=== PATIENT | female | born 1985 | race African-American/Black ===

== ENCOUNTER 2016-12-21 23:15 | Emergency (ER) | payer OTHER ==
[~2016-12-21] VITALS: Ht 165.1 cm; Wt 108.9 kg
[~2016-12-21 23:15] MED LIST: ACET-704 PO; ALBU8.5H6 INH; AMOX875T PO; CYCL10TA2 PO; FLUT250D IH; IBUP-1060 PO; LISI-338 PO; METF10002 PO; NAPR500T PO
[2016-12-21 23:25] VITALS: BP 147/87
--- NOTE | 2016-12-21 23:39 | PHYS DOC ---
Past Medical History Past Medical History: Asthma, Bronchitis, Diabetes-Type II, Hypertension, Other Additional Past Medical Histor: obese Past Surgical History: Cholecystectomy, Additional Past Surgical Histo: D&C Alcohol Use: None Drug Use: None Adult General Chief Complaint Chief Complaint: ABSCESS HPI HPI Patient is a 31 year old female presents emergency Department with complaint of pain, swelling and drainage to an area under her left armpit that began 2 days ago. Patient states that she does not have any history of recurrent skin infections. She states that she has not been on antibiotics within the past 30 days. Patient does shave her armpits. She denies fevers or chills. She denies myalgias or arthralgias. Review of Systems Review of Systems Constitutional: Denies fever or chills [] Eyes: Denies change in visual acuity, redness, or eye pain [] HENT: Denies nasal congestion or sore throat [] Respiratory: Denies cough or shortness of breath [] Cardiovascular: No additional information not addressed in HPI [] GI: Denies abdominal pain, nausea, vomiting, bloody stools or diarrhea [] : Denies dysuria or hematuria [] Musculoskeletal: Denies back pain or joint pain [] Integument: Denies rash or skin lesions [] Neurologic: Denies headache, focal weakness or sensory changes [] Endocrine: Denies polyuria or polydipsia [] Current Medications Current Medications Current Medications Medications (Trade) Dose Ordered Sig/Prem Start Time Stop Time Status Last Admin Dose Admin Lidocaine/Sodium Bicarbonate (Buffered Lidocaine 1%) 20 ml STK-MED ONCE 12/21/16 23:47 12/21/16 23:48 DC Allergies Allergies Allergies Coded Allergies Type Severity Reaction Last Updated Verified strawberry Allergy Intermediate SWELLS UP 08/25/15 Yes Uncoded Allergies Type Severity Reaction Last Updated Verified ONION Allergy Intermediate hives 08/25/15 Physical Exam Physical Exam Constitutional: Well developed, well nourished, no acute distress, non-toxic appearance. Patient is afebrile. HENT: Normocephalic, atraumatic, bilateral external ears normal, oropharynx moist, no oral exudates, nose normal. [] Eyes: PERRLA, EOMI, conjunctiva normal, no discharge. [] Neck: Normal range of motion, no tenderness, supple, no stridor. [] Cardiovascular:Heart rate regular rhythm, no murmur [] Lungs & Thorax: Bilateral breath sounds clear to auscultation [] Abdomen: Bowel sounds normal, soft, no tenderness, no masses, no pulsatile masses. [] Skin: Subcutaneous nodular lesion in patient's left axilla. When compressed, purulent drainage is immediately expressed. There is no overlying erythema or additional blockage/drainage tracts. Back: No tenderness, no CVA tenderness. [] Extremities: No tenderness, no cyanosis, no clubbing, ROM intact, no edema. [] Neurologic: Alert and oriented X 3, normal motor function, normal sensory function, no focal deficits noted. [] Psychologic: Affect normal, judgement normal, mood normal. [] Current Patient Data Vital Signs Vital Signs Date Time Temp Pulse Resp B/P Pulse Ox O2 Delivery O2 Flow Rate FiO2 12/21/16 23:25 98.1 96 18 100 Room Air 98.1 EKG EKG [] Radiology/Procedures Radiology/Procedures Procedure note: 1 cm abscess in the left axilla was anesthetized with buffered 1 % lidocaine. Wound was prepped with Betadine solution. Abscess was incised with an 11 blade scalpel. There was expression of purulent material . wound was probed for loculations. No loculations were found. Quarter-inch iodoform packing was placed in the wound. It was dressed and bandaged. Patient tolerated the procedure well. Procedure was performed by RENÉE Richter student, under my supervision. Course & Med Decision Making Course & Med Decision Making Pertinent Labs and Imaging studies reviewed. (See chart for details) [] Dragon Disclaimer Dragon Disclaimer This electronic medical record was generated, in whole or in part, using a voice recognition dictation system. Departure Departure Impression: Primary Impression: Abscess Disposition: HOME, SELF-CARE Condition: IMPROVED Referrals: NO PCP (PCP) Patient Instructions: Abscess, Care After, Abscess, [id number] Additional Instructions: 1. Take the medication as prescribed. 2. If packing has been placed in the abscess, take the packing out in 2 days while in the shower. 3. Keep the area covered with a bandage while it continues to drain. Do not let anybody touch with her hands. 4. Review the discharge instructions provided for self-care and reasons to return the emergency department. 5. Follow-up with primary care doctor next week for wound evaluation. Scripts Hydrocodone/Apap 5-325 (Foster 5-325 Tablet)1 Each Tablet1 Tab PO PRN Q6HRS PRN PAIN #15 TAB Prov:SARI DANG 12/21/16 Sulfamethoxazole/Trimethoprim (Bactrim Ds Tablet)1 Each Tablet1 Each PO BID #14 TAB Prov:SARI DANG 12/21/16 SARI DANG Dec 21, 2016 23:40
[2016-12-21] MEDS ORDERED: LIDOCAINE 1% / SOD BICARB 8.4% 20 ML VIAL. IJ ONE ×2 (23:47→23:55)
[2016-12-21] MEDS ORDERED: HYDR-971 PO (23:56)
[2016-12-21] MEDS ORDERED: SULF1TAB24 PO (23:56)
== END 2016-12-22 00:22 | disposition home or self-care (01) ==
LOC: ER 23:15
DX: L02.412 Cutaneous abscess of left axilla (principal); J45.909 Unspecified asthma, uncomplicated; E11.9 Type 2 diabetes mellitus without complications; I10 Essential (primary) hypertension; E66.9 Obesity, unspecified; Z68.39 Body mass index [BMI] 39.0-39.9, adult; Z91.018 Allergy to other foods
CPT/HCPCS: 10060; 99283-25

== ENCOUNTER 2017-02-06 23:49 | Emergency (ER) | payer OTHER ==
[~2017-02-06 23:49] MED LIST changes: +HYDR-971 PO; +SULF1TAB24 PO
[2017-02-06 23:51] VITALS: BP 132/73
[2017-02-07] MEDS ORDERED: HYDR-971 PO (00:48)
[2017-02-07] MEDS ORDERED: NAPR500T3 PO (00:48)
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
== END 2017-02-07 01:02 | disposition home or self-care (01) ==
LOC: ER 23:49
DX: H93.13 Tinnitus, bilateral (principal); J45.909 Unspecified asthma, uncomplicated; E11.9 Type 2 diabetes mellitus without complications; I10 Essential (primary) hypertension; E66.9 Obesity, unspecified; Z91.018 Allergy to other foods
CPT/HCPCS: 99283

== ENCOUNTER 2017-04-15 20:10 | Emergency (ER) | payer OTHER ==
[~2017-04-15] VITALS: Ht 165.1 cm; Wt 111.1 kg
[~2017-04-15 20:10] MED LIST changes: +METF-620 PO; -METF10002 PO; +NAPR500T3 PO
[2017-04-15] MEDS ORDERED: IV NORMAL SALINE 1000ML BAG 1,000 ML IV SCH (20:20)
[2017-04-15] MEDS ORDERED: methylPREDNISolone SOD SUCC PF 125 MG/2 ML VIAL. IV ONE (20:30)
[2017-04-15] MEDS ORDERED: IPRATRPIUM/ALBUTEROL 0.5/2.5MG 3 ML NEBU. NEB ONE (20:30)
[2017-04-15] MEDS ORDERED: 0.9 % SODIUM CHLORIDE 10 ML DISP.SYRIN. IV ONE (20:30)
--- NOTE | 2017-04-15 20:31 | PHYS DOC ---
Past Medical History Past Medical History: Asthma, Bronchitis, Diabetes-Type II, Hypertension, Other Additional Past Medical Histor: obese Past Surgical History: Cholecystectomy, Additional Past Surgical Histo: D&C Alcohol Use: None Drug Use: None Adult General Chief Complaint Chief Complaint: ASTHMA HPI HPI Patient is a 32 year old female with history of asthma who is supposed to be on albuterol inhalers at home but is presently out of medications. For last several days she's been suffering from increased wheezing increased shortness of breath with a nonproductive cough no fevers chills or URI symptoms. She's been trying to tough it out with no medications whatsoever because she cannot afford the medications given her income level she does not qualify for assistance to support her medication requirements. She denies any travel outside the country, denies any new antibiotics, denies any prior intubation, denies any recent steroid use, denies any recent oscillation ER visit last 3-6 months. Patient denies any exposure to smoke or trauma. Patient is very anxious when she arrived by EMS and given neb treatments in route and her saturation was difficult to within normal limits. She is no longer weak and wheezing there is no history of retractions reported by EMS or accessory muscle use. Differential diagnosis: Acute myocardial ischemia, heart failure, cardiac tamponade, bronchospasm, pulmonary embolism, pneumothorax, pulmonary infection i.e. bronchitis or pneumonia, upper airway obstruction, anaphylaxis, aspiration , psychogenic, pulmonary contusion, toxidrome, pneumomediastinum, noncardiogenic pulmonary edema or ARDS, COPD, tuberculosis, cystic fibrosis, asthma, high altitude pulmonary edema, valvular dysfunction, cardiac dysrhythmia , stroke, neuromuscular diseases like myasthenia gravis gravis, ALS, Guillain- Stewart syndrome, metabolic acidosis to include diabetic ketoacidosis, sepsis, and obstructive disorders like massive obesity Insert upon arrival. Patients will have chest x-ray done, EKG, enzymes, troponin , proBNP, CMP CBC and urinalysis. At this point patient will be given one neb treatment and Solu-Medrol as well as fluids antiemetics and an anoxia lytics if necessary. Review of Systems Review of Systems Constitutional: Denies fever or chills [] Eyes: Denies change in visual acuity, redness, or eye pain [] HENT: She has had nasal congestion and a nonproductive cough. Respiratory: As for very short of breath with a nonproductive cough. Cardiovascular: No additional information not addressed in HPI [] GI: Denies abdominal pain, nausea, vomiting, bloody stools or diarrhea [] : Denies dysuria or hematuria [] Musculoskeletal: Denies back pain or joint pain [] Integument: Denies rash or skin lesions [] Neurologic: Denies headache, focal weakness or sensory changes [] Endocrine: Denies polyuria or polydipsia [] Psychological: Patient's very anxious Current Medications Current Medications Current Medications Medications (Trade) Dose Ordered Sig/Prem Start Time Stop Time Status Last Admin Dose Admin Albuterol/ Ipratropium (Duoneb) 3 ml 1X ONCE 04/15/17 20:30 04/15/17 20:31 DC 04/15/17 20:37 3 ML Lorazepam (Ativan) 1 mg 1X ONCE 04/15/17 20:30 04/15/17 20:31 DC 04/15/17 20:51 1 MG Methylprednisolone Sodium Succinate (SOLU-Medrol 125MG VIAL) 125 mg 1X ONCE 04/15/17 20:30 04/15/17 20:31 DC 04/15/17 20:54 125 MG Sodium Chloride 1,000 ml @ 1,000 mls/hr Q1H 04/15/17 20:20 04/15/17 21:19 DC 04/15/17 20:55 1,000 MLS/HR Sodium Chloride (Normal Saline Flush) 10 ml 1X ONCE 04/15/17 20:30 04/15/17 20:31 DC 04/15/17 20:53 10 ML Allergies Allergies Allergies Coded Allergies Type Severity Reaction Last Updated Verified strawberry Allergy Intermediate SWELLS UP 08/25/15 Yes Uncoded Allergies Type Severity Reaction Last Updated Verified ONION Allergy Intermediate hives 08/25/15 Physical Exam Physical Exam Constitutional: Well developed, well nourished, patient obviously comfortable in marked distress with anxiety she is tearful and crying but easily consolable. Respiratory rate is between 20 and 25 her saturations are 99% on room air she is demonstrated no retractions, accessory muscle use or speaking in short sentences. HENT: Normocephalic, atraumatic, bilateral external ears normal, oropharynx moist, no oral exudates, nose normal. [] Eyes: PERRLA, EOMI, conjunctiva normal, no discharge. [] Neck: Normal range of motion, no tenderness, supple, no stridor. [] Cardiovascular:Heart rate regular rhythm, no murmur [] Lungs & Thorax: She does bilateral breath sounds are nearly clear patient has mild expiratory wheezing in the upper lung cervantes only. Abdomen: Bowel sounds normal, soft, no tenderness, no masses, no pulsatile masses. [] Skin: Warm, dry, no erythema, no rash. [] Extremities: No tenderness, no cyanosis, no clubbing, ROM intact, no edema. [] Neurologic: Alert and oriented X 3, normal motor function, normal sensory function, no focal deficits noted. [] Psychologic: Is very anxious. Current Patient Data Vital Signs Vital Signs Date Time Temp Pulse Resp B/P (MAP) Pulse Ox O2 Delivery O2 Flow Rate FiO2 04/15/17 20:40 99 Room Air 04/15/17 20:25 98.1 94 13 145/68 (93) 98.1 Lab Values Laboratory Tests Test 04/15/17 20:30 White Blood Count 10.8 x10^3/uL (4.0-11.0) Red Blood Count 4.31 x10^6/uL (3.50-5.40) Hemoglobin 13.2 g/dL (12.0-15.5) Hematocrit 39.1 % (36.0-47.0) Mean Corpuscular Volume 91 fL (79-100) Mean Corpuscular Hemoglobin 31 pg (25-35) Mean Corpuscular Hemoglobin Concent 34 g/dL (31-37) Red Cell Distribution Width 13.0 % (11.5-14.5) Platelet Count 209 x10^3/uL (140-400) Neutrophils (%) (Auto) 60 % (31-73) Lymphocytes (%) (Auto) 30 % (24-48) Monocytes (%) (Auto) 7 % (0-9) Eosinophils (%) (Auto) 3 % (0-3) Basophils (%) (Auto) 1 % (0-3) Neutrophils # (Auto) 6.4 x10^3uL (1.8-7.7) Lymphocytes # (Auto) 3.2 x10^3/uL (1.0-4.8) Monocytes # (Auto) 0.8 x10^3/uL (0.0-1.1) Eosinophils # (Auto) 0.3 x10^3/uL (0.0-0.7) Basophils # (Auto) 0.1 x10^3/uL (0.0-0.2) Sodium Level 141 mmol/L (136-145) Potassium Level 3.6 mmol/L (3.5-5.1) Chloride Level 105 mmol/L (98-107) Carbon Dioxide Level 25 mmol/L (21-32) Anion Gap 11 (6-14) Blood Urea Nitrogen 9 mg/dL (7-20) Creatinine 0.9 mg/dL (0.6-1.0) Estimated GFR (Cockcroft-Gault) 88.4 BUN/Creatinine Ratio 10 (6-20) Glucose Level 109 mg/dL (70-99) H Calcium Level 9.5 mg/dL (8.5-10.1) Total Bilirubin 0.3 mg/dL (0.2-1.0) Aspartate Amino Transferase (AST) 26 U/L (15-37) Alanine Aminotransferase (ALT) 32 U/L (14-59) Alkaline Phosphatase 67 U/L (46-116) Creatine Kinase 456 U/L (26-192) H Creatine Kinase MB (Mass) 0.9 ng/mL (0.0-3.6) Creatine Kinase MB Relative Index 0.2 % (0-4) Troponin I Quantitative < 0.017 ng/mL (0.000-0.055) [id number]-Ckj-S-Type Natriuretic Peptide 54 pg/mL (0-124) Total Protein 7.4 g/dL (6.4-8.2) Albumin 3.8 g/dL (3.4-5.0) Albumin/Globulin Ratio 1.1 (1.0-1.7) Laboratory Tests 04/15/17 20:30 Laboratory Tests 04/15/17 20:30 EKG EKG [] Radiology/Procedures Radiology/Procedures [] Course & Med Decision Making Course & Med Decision Making Pertinent Labs and Imaging studies reviewed. (See chart for details) Impression presents with suspected asthma exacerbation secondary to medication noncompliance because of lack of availability. Patient will be treated with albuterol IV steroids and supportive medications treat her anxiety. Arrival she was very anxious easily consoled with shortness and Ativan. Course the patient decrease evaluation and stay patient received another neb treatment and some Ativan here in the emergency department as well as fluids and appropriate medications to better sats are 100% on room air patient is resting quietly with normal respiratory of 16 lungs are clear bilaterally repeat evaluation. Patient was reevaluated approximately 925 and at 1005 again resting comfortably without issue. Troponin is negative CMP is unremarkable CBC is normal. Chest x-ray dated 04/15/2017 at 20 1:32 PM demonstrates normal lungs with no focal infiltrate no hyperinflation no cardiomegaly no soda Medicare no evidence of pneumothorax no pleural effusions. Impression asthma exacerbation and anxiety medication noncompliance. She will be provided albuterol, short course of steroids and Ativan to help with her anxiety. I will encourage her to follow-up with her primary care doctor to talk about these financial restraints or causing her to be noncompliant with medications. I'll provide her generic forms these medications in order to help facilitate coverage for her symptoms. We've given an albuterol with a spacer here in the emergency pertinent to prevent recurrence tonight. She is moderate risk given her medication noncompliance body habitus and need for recurrent treatments. Disposition discharged home with family to follow up with her primary care doctor [] Heidi Disclaimer Heidi Disclaimer This electronic medical record was generated, in whole or in part, using a voice recognition dictation system. Departure Departure Impression: Primary Impression: Asthma exacerbation Additional Impression: Anxiety Disposition: 01 HOME, SELF-CARE Condition: IMPROVED Referrals: NO PCP (PCP) Patient Instructions: Anxiety and Panic Attacks, Asthma Attacks, Prevention, Asthma Prevention-Brief, Asthma, Adult Additional Instructions: This follow-up U primary care doctor in the next 12-24 hours for refill. Medications reevaluation of the medical regiment you are on an assurance that you can actually get her medications in a timely manner to prevent subsequent attacks in the future. Scripts Albuterol Sulfate (PROVENTIL HFA INHALER) 6.7 Gm Hfa.aer.ad 1 PUFF IH PRN Q4HRS Y for FOR ASTHMA, #2 INHALER 0 Refills Please her private a spacer with his inhaler for this patient to use Prov: JEFFY CAPELLAN MD 04/15/17 Prednisone (PREDNISONE) 20 Mg Tablet 3 TAB PO DAILY for 5 Days, #15 TAB Prov: JEFFY CAPELLAN MD 04/15/17 Lorazepam (ATIVAN) 1 Mg Tablet 1 MG PO BID for 5 Days, #10 TAB Prov: JEFFY CAPELLAN MD 04/15/17 Problem Qualifiers JEFFY CAPELLAN MD Apr 15, 2017 20:31
[2017-04-15 20:37] LABS: BASO # 0.1 x10^3/uL (0.0-0.2); BASO % 1 % (0-3); EOS % 3 % (0-3); HEMATOCRIT 39.1 % (36.0-47.0); HEMOGLOBIN 13.2 g/dL (12.0-15.5); LYMPH # 3.2 x10^3/uL (1.0-4.8); LYMPH % 30 % (24-48); MEAN CORPUSCULAR HEMOGLOBIN 31 pg (25-35); MEAN CORPUSCULAR HGB CONC 34 g/dL (31-37); MEAN CORPUSCULAR VOLUME 91 fL (79-100); MONO % 7 % (0-9); NEUT % 60 % (31-73); PLATELET COUNT 209 x10^3/uL (140-400); RED BLOOD COUNT 4.31 x10^6/uL (3.50-5.40); WHITE BLOOD COUNT 10.8 x10^3/uL (4.0-11.0)
[2017-04-15 21:04] LABS: CALCIUM 9.5 mg/dL (8.5-10.1); CREATININE 0.9 mg/dL (0.6-1.0); GFR 88.4; POTASSIUM 3.6 mmol/L (3.5-5.1)
[2017-04-15 21:10] LABS: ALBUMIN 3.8 g/dL (3.4-5.0); ALBUMIN/GLOBULIN RATIO 1.1 (1.0-1.7); TOTAL BILIRUBIN 0.3 mg/dL (0.2-1.0); TOTAL PROTEIN 7.4 g/dL (6.4-8.2)
[2017-04-15 21:17] LABS: CKMB MASS 0.9 ng/mL (0.0-3.6)
[2017-04-15] MEDS ORDERED: PROVENTIL HFA6.7 GM IH (22:04)
[2017-04-15] MEDS ORDERED: LORA-434 PO (22:04)
[2017-04-15] MEDS ORDERED: PRED20TA PO (22:04)
[2017-04-15 22:30] VITALS: BP 139/80
--- NOTE | 2017-04-16 06:14 | EKG ---
[facility] [address] [place] [address] Test Date: 2017-04-15 Test Time: 20:17:14 Pat Name: NICO KAPOOR Department: Room: Gender: F Mys[employer] Database Developer: : [id number] Requested By: JEFFY CAPELLAN Order Number: [id number] Reading MD: Jolene Gardner Measurements Intervals [place] Rate: 92 P: 23 CA: 162 QRS: 23 QRSD: 86 T: -9 QT: 358 QTc: 448 Interpretive Statements SINUS RHYTHM NORMAL EKG RI6.01 Unconfirmed report No previous ECG available for comparison Electronically Signed On 04-19-2017 22:14:28 CDT by Jolene Gardner
--- NOTE | 2017-04-16 07:33 | RAD ---
Chest, 2 views, 04/15/2017: History: Cough, asthma Comparison is made to a study from 06/27/2015. The heart size and pulmonary vascularity are normal. No pulmonary infiltrates are seen. There is no evidence of pleural fluid. IMPRESSION: No acute cardiopulmonary abnormality is detected.
== END 2017-04-15 22:36 | disposition home or self-care (01) ==
LOC: ER 20:10
DX: J45.901 Unspecified asthma with (acute) exacerbation (principal); F41.9 Anxiety disorder, unspecified; I10 Essential (primary) hypertension; E66.9 Obesity, unspecified; E11.9 Type 2 diabetes mellitus without complications; Z68.41 Body mass index [BMI] 40.0-44.9, adult; Z90.49 Acquired absence of other specified parts of digestive tract; Z79.899 Other long term (current) drug therapy; Z91.018 Allergy to other foods; Z91.14 Patient's other noncompliance with medication regimen
CPT/HCPCS: 36415; 71020; 80053; 82553; 83880; 84484; 85027; 93005; 94640; 96361; 96374; 96375; 99285; J2060; J2930; J7030; J7620

== ENCOUNTER 2017-06-02 13:26 | Emergency (ER) | payer OTHER ==
[~2017-06-02] VITALS: Ht 165.1 cm; Wt 109.8 kg
[~2017-06-02 13:26] MED LIST changes: +LORA-434 PO; +PRED20TA PO; +PROVENTIL HFA6.7 GM IH
[2017-06-02] MEDS ORDERED: FAMOTIDINE 20 MG/2 ML VIAL IVP ONE (14:15)
[2017-06-02] MEDS ORDERED: ONDANSETRON PF 4 MG/2 ML VIAL. IV ONE (14:15)
--- NOTE | 2017-06-02 14:15 | ED.ADGEN ---
Past Medical History Past Medical History: Asthma, Bronchitis, Diabetes-Type II, Hypertension, Other Additional Past Medical Histor: obese Past Surgical History: Cholecystectomy, Additional Past Surgical Histo: D&C Alcohol Use: None Drug Use: None Adult General Chief Complaint Chief Complaint: CHEST PAIN HPI HPI Patient is a 32 year old -[place] female with history of asthma, hypertension and acid reflux disease who presents with intermittent chest pain with nausea and bilious vomiting 2 days. Symptoms are worse after eating. Patient states pain goes into chest into anterior throat. Denies back pain, shortness of breath, hematemesis or coffee-ground emesis. Denies upper abdominal pain. Patient's taken Rolaids and Tums without relief. No other acute symptoms or complaints. Previous cholecystectomy. Last menstrual period was 24 days ago. Review of Systems Review of Systems ROS as per HPI. All other ROS are negatiuve. Current Medications Current Medications Current Medications Medications (Trade) Dose Ordered Sig/Prem Start Time Stop Time Status Last Admin Dose Admin Famotidine (Pepcid) 20 mg 1X ONCE 06/02/17 14:15 06/02/17 14:16 DC 06/02/17 14:47 20 MG Lorazepam (Ativan) 1 mg 1X ONCE 06/02/17 14:15 06/02/17 14:16 DC 06/02/17 14:47 1 MG Ondansetron HCl (Zofran) 4 mg 1X ONCE 06/02/17 14:15 06/02/17 14:16 DC 06/02/17 14:47 4 MG Allergies Allergies Allergies Coded Allergies Type Severity Reaction Last Updated Verified strawberry Allergy Intermediate SWELLS UP 08/25/15 Yes Uncoded Allergies Type Severity Reaction Last Updated Verified ONION Allergy Intermediate hives 08/25/15 Physical Exam Physical Exam Constitutional:, Moderate distress secondary to pain. HENT: Normocephalic, atraumatic, bilateral external ears normal, oropharynx moist, no oral exudates, nose normal. Eyes: PERRL. Neck: Normal range of motion. Cardiovascular:Heart rate regular rhythm, no murmur. Lungs & Thorax: Bilateral breath sounds clear to auscultation. Abdomen: Bowel sounds normal, soft, epigastric pain, tenderness, obesity compromising exam. Skin: Warm, dry. Back: No tenderness. Extremities: No tenderness. Neurologic: Alert and oriented X 3, normal motor function, normal sensory function, no focal deficits noted. Psychologic: Affect normal, judgement normal, mood normal. Current Patient Data Vital Signs Vital Signs Date Time Temp Pulse Resp B/P (MAP) Pulse Ox O2 Delivery O2 Flow Rate FiO2 06/02/17 15:52 68 18 108/51 (70) 99 Room Air 06/02/17 13:47 98.2 98.2 Lab Values Laboratory Tests Test 06/02/17 14:04 06/02/17 14:44 POC Urine HCG, Qualitative Hcg negative (Negative) White Blood Count 8.9 x10^3/uL (4.0-11.0) Red Blood Count 4.24 x10^6/uL (3.50-5.40) Hemoglobin 12.9 g/dL (12.0-15.5) Hematocrit 38.4 % (36.0-47.0) Mean Corpuscular Volume 91 fL (79-100) Mean Corpuscular Hemoglobin 30 pg (25-35) Mean Corpuscular Hemoglobin Concent 34 g/dL (31-37) Red Cell Distribution Width 13.3 % (11.5-14.5) Platelet Count 181 x10^3/uL (140-400) Neutrophils (%) (Auto) 62 % (31-73) Lymphocytes (%) (Auto) 27 % (24-48) Monocytes (%) (Auto) 7 % (0-9) Eosinophils (%) (Auto) 4 % (0-3) H Basophils (%) (Auto) 1 % (0-3) Neutrophils # (Auto) 5.5 x10^3uL (1.8-7.7) Lymphocytes # (Auto) 2.4 x10^3/uL (1.0-4.8) Monocytes # (Auto) 0.7 x10^3/uL (0.0-1.1) Eosinophils # (Auto) 0.3 x10^3/uL (0.0-0.7) Basophils # (Auto) 0.0 x10^3/uL (0.0-0.2) D-Dimer (Beata) < 0.27 ug/mlFEU Sodium Level 141 mmol/L (136-145) Potassium Level 3.9 mmol/L (3.5-5.1) Chloride Level 106 mmol/L (98-107) Carbon Dioxide Level 28 mmol/L (21-32) Anion Gap 7 (6-14) Blood Urea Nitrogen 8 mg/dL (7-20) Creatinine 0.8 mg/dL (0.6-1.0) Estimated GFR (Cockcroft-Gault) 101.2 BUN/Creatinine Ratio 10 (6-20) Glucose Level 109 mg/dL (70-99) H Calcium Level 8.8 mg/dL (8.5-10.1) Total Bilirubin 0.4 mg/dL (0.2-1.0) Aspartate Amino Transferase (AST) 31 U/L (15-37) Alanine Aminotransferase (ALT) 34 U/L (14-59) Alkaline Phosphatase 61 U/L (46-116) Troponin I Quantitative < 0.017 ng/mL (0.000-0.055) Total Protein 7.4 g/dL (6.4-8.2) Albumin 3.6 g/dL (3.4-5.0) Albumin/Globulin Ratio 0.9 (1.0-1.7) L Lipase 143 U/L (73-393) Serum Test, Qualitative Negative (NEG) Laboratory Tests 06/02/17 14:44 Laboratory Tests 06/02/17 14:44 EKG EKG [EKG normal sinus rhythm, rate 78, no acute ST-T wave changes.] Radiology/Procedures Radiology/Procedures [] Course & Med Decision Making Course & Med Decision Making Pertinent Labs and Imaging studies reviewed. (See chart for details) [Patient's abdomen soft, nonsurgical and repeat evaluation. Symptoms fully resolved with treatment. Suspect acid reflux/spasm with secondary anxiety reaction. No hematemesis or dark tarry stools per patient report. Will discharge home with supportive care with PCP follow-up. Return precautions reviewed. Patient verbalized understanding agreement discharge instructions prior to ED departure. Dragon Disclaimer Dragon Disclaimer This electronic medical record was generated, in whole or in part, using a voice recognition dictation system. RICKY MORGAN DO Jun 02, 2017 14:15
[2017-06-02 15:16] LABS: BASO % 1 % (0-3); EOS % 4 % (0-3); HEMATOCRIT 38.4 % (36.0-47.0); HEMOGLOBIN 12.9 g/dL (12.0-15.5); LYMPH # 2.4 x10^3/uL (1.0-4.8); LYMPH % 27 % (24-48); MEAN CORPUSCULAR HEMOGLOBIN 30 pg (25-35); MEAN CORPUSCULAR HGB CONC 34 g/dL (31-37); MEAN CORPUSCULAR VOLUME 91 fL (79-100); MONO % 7 % (0-9); NEUT % 62 % (31-73); PLATELET COUNT 181 x10^3/uL (140-400); RED BLOOD COUNT 4.24 x10^6/uL (3.50-5.40); RED CELL DISTRIBUTION WIDTH 13.3 % (11.5-14.5); WHITE BLOOD COUNT 8.9 x10^3/uL (4.0-11.0)
[2017-06-02 15:33] LABS: CALCIUM 8.8 mg/dL (8.5-10.1); CREATININE 0.8 mg/dL (0.6-1.0); GFR 101.2; POTASSIUM 3.9 mmol/L (3.5-5.1)
[2017-06-02 15:38] LABS: ALBUMIN 3.6 g/dL (3.4-5.0); ALBUMIN/GLOBULIN RATIO 0.9 (1.0-1.7); NEG OBC SER NEG; POS OBC SER POS; TOTAL BILIRUBIN 0.4 mg/dL (0.2-1.0); TOTAL PROTEIN 7.4 g/dL (6.4-8.2)
[2017-06-02 16:26] VITALS: BP 126/61
--- NOTE | 2017-06-02 17:59 | EKG ---
[facility] [address] [place] [address] Test Date: 2017-06-02 Test Time: 13:57:01 Pat Name: NICO KAPOOR Department: Room: Gender: F Acupuncturist: : 1985 Requested By: RICKY MORGAN Order Number: [id number] Reading MD: Jj Eid Measurements Intervals [place] Rate: 78 P: 19 NC: 150 QRS: 30 QRSD: 80 T: -48 QT: 394 QTc: 453 Interpretive Statements SINUS RHYTHM NON-SPECIFIC ST/T CHANGES Electronically Signed On 06-07-2017 14:38:28 CDT by Jj Eid
== END 2017-06-02 17:02 | disposition home or self-care (01) ==
LOC: ER 13:26
DX: R11.2 Nausea with vomiting, unspecified (principal); R07.9 Chest pain, unspecified; E11.9 Type 2 diabetes mellitus without complications; E66.9 Obesity, unspecified; Z68.41 Body mass index [BMI] 40.0-44.9, adult; Z90.49 Acquired absence of other specified parts of digestive tract; Z91.018 Allergy to other foods; I10 Essential (primary) hypertension; J45.909 Unspecified asthma, uncomplicated; K21.9 Gastro-esophageal reflux disease without esophagitis
CPT/HCPCS: 36415; 80053; 81025; 83690; 84484; 84703; 85027; 85379; 93005; 96374; 96375; 99285; J2060; J2405; S0028

== ENCOUNTER 2017-07-15 14:28 | Emergency (ER) | payer OTHER ==
[~2017-07-15] VITALS: Ht 165.1 cm; Wt 109.8 kg
[2017-07-15 14:40] VITALS: BP 142/90
[2017-07-15] MEDS ORDERED: FAMOTIDINE 20 MG TABLET. PO ONE (15:00)
[2017-07-15] MEDS ORDERED: diphenhydrAMINE 50 MG/ML VIAL IM ONE (15:00)
[2017-07-15] MEDS ORDERED: DEXAMETHASONE SOD PHOS 20 MG/5 ML VIAL. IM ONE (15:00)
[2017-07-15] MEDS ORDERED: FAMO20TA5 PO (15:24)
[2017-07-15] MEDS ORDERED: EPIPEN 2-P0.3 MG/0.3 IJ (15:24)
[2017-07-15] MEDS ORDERED: CETI10TA22 PO (15:24)
[2017-07-15] MEDS ORDERED: PRED50TA PO (15:24)
--- NOTE | 2017-07-15 15:25 | PHYS DOC ---
Past Medical History Past Medical History: Asthma, Bronchitis, Diabetes-Type II, Hypertension, Other Additional Past Medical Histor: obese Past Surgical History: Cholecystectomy, Additional Past Surgical Histo: D&C Alcohol Use: None Drug Use: None Adult General Chief Complaint Chief Complaint: INSECT BITE [facility] HPI Patient is a 32 year old female with history of diabetes type 2, hypertension, bronchitis, who presents with a bee sting to the left upper extremity that happened 30 minutes prior to coming to the ED. Patient states she is allergic to bees. Patient denies any difficulty breathing or swallowing throat or tongue swelling. She states she used to have an EpiPen but has not had one for awhile Review of Systems Review of Systems Constitutional: Denies fever or chills [] Eyes: Denies change in visual acuity, redness, or eye pain [] HENT: Denies nasal congestion or sore throat [] Respiratory: Denies cough or shortness of breath [] Cardiovascular: No additional information not addressed in HPI [] GI: Denies abdominal pain, nausea, vomiting, bloody stools or diarrhea [] : Denies dysuria or hematuria [] Musculoskeletal: Denies back pain or joint pain [] Integument: Bee sting to the left upper extremity Neurologic: Denies headache, focal weakness or sensory changes [] Current Medications Current Medications Current Medications Medications (Trade) Dose Ordered Sig/Prem Start Time Stop Time Status Last Admin Dose Admin Dexamethasone Sodium Phosphate (Decadron) 10 mg 1X ONCE 07/15/17 15:00 07/15/17 15:01 DC 07/15/17 15:03 10 MG Diphenhydramine HCl (Benadryl) 50 mg 1X ONCE 07/15/17 15:00 07/15/17 15:01 DC 07/15/17 15:03 50 MG Famotidine (Pepcid) 20 mg 1X ONCE 07/15/17 15:00 07/15/17 15:01 DC 07/15/17 15:02 20 MG Allergies Allergies Allergies Coded Allergies Type Severity Reaction Last Updated Verified strawberry Allergy Intermediate SWELLS UP 08/25/15 Yes Uncoded Allergies Type Severity Reaction Last Updated Verified ONION Allergy Intermediate hives 08/25/15 Physical Exam Physical Exam Constitutional: Well developed, well nourished, no acute distress, non-toxic appearance. [] HENT: Normocephalic, atraumatic, bilateral external ears normal, oropharynx moist, no oral exudates, nose normal. [] Eyes: PERRLA, EOMI, conjunctiva normal, no discharge. [] Neck: Normal range of motion, no tenderness, supple, no stridor. [] Cardiovascular:Heart rate regular rhythm, no murmur [] Lungs & Thorax: Bilateral breath sounds clear to auscultation [] Abdomen: Bowel sounds normal, soft, no tenderness, no masses, no pulsatile masses. [] Skin: Left triceps with an area of erythema approximately 1 x 1 cm consistent with insect bite. Back: No tenderness, no CVA tenderness. [] Extremities: No tenderness, no cyanosis, no clubbing, ROM intact, no edema. [] Neurologic: Alert and oriented X 3, normal motor function, normal sensory function, no focal deficits noted. [] Psychologic: Affect normal, judgement normal, mood normal. [] Current Patient Data Vital Signs Vital Signs Date Time Temp Pulse Resp B/P (MAP) Pulse Ox O2 Delivery O2 Flow Rate FiO2 07/15/17 14:40 98.4 75 16 100 Room Air 98.4 EKG EKG [] Radiology/Procedures Radiology/Procedures [] Course & Med Decision Making Course & Med Decision Making Pertinent Labs and Imaging studies reviewed. (See chart for details) Patient has a bee sting to the left upper extremity. She does not have any anaphylactic reaction symptoms. She was given Decadron Benadryl and Pepcid in the ED. Discharged with prednisone,Benadryl and Pepcid. Given a prescription for EpiPen. Follow-up with PCP in 1-2 weeks. Provided proper return precautions and discharged in stable condition. Dragon Disclaimer Dragon Disclaimer This electronic medical record was generated, in whole or in part, using a voice recognition dictation system. Departure Departure Impression: Primary Impression: Bee sting Disposition: 01 HOME, SELF-CARE Condition: STABLE Referrals: NO PCP (PCP) follow up with your doctor next week Patient Instructions: Bee, Wasp, or Hornet Sting Additional Instructions: You were seen for a bee sting to the left upper extremity. Take the prescribed prednisone for 5 days, take Benadryl during the night of Zyrtec during the day, take Pepcid for the next 5 days. Follow-up with your doctor next week. Return to the emergency room if symptoms worsen. Scripts Cetirizine Hcl (ZYRTEC) 10 Mg Tablet 1 TAB PO DAILY, #14 TAB 0 Refills Prov: DARLENE TUCKER APRN 07/15/17 Famotidine (FAMOTIDINE) 20 Mg Tablet 20 MG PO DAILY, #5 TAB Prov: DARLENE TUCKER APRN 07/15/17 Prednisone (PREDNISONE) 50 Mg Tablet 1 TAB PO DAILY, #5 TAB Prov: DARLENE TUCKER APRN 07/15/17 Epinephrine (EPIPEN 2-JADON) 0.3 Mg/0.3 Ml Auto.injct 0.3 MG IJ 1X, #1 SYR Prov: DARLENE TUCKER APRN 07/15/17 Problem Qualifiers Primary Impression: Bee sting Encounter type: initial encounter Injury intent: accidental or unintentional Qualified Codes: T63.441A - Toxic effect of venom of bees, accidental (unintentional), initial encounter DARLENE TUCKER APRN Jul 15, 2017 15:25
== END 2017-07-15 15:30 | disposition home or self-care (01) ==
LOC: ER 14:28
DX: T63.441A Toxic effect of venom of bees, accidental (unintentional), initial encounter (principal); E11.9 Type 2 diabetes mellitus without complications; I10 Essential (primary) hypertension; J45.909 Unspecified asthma, uncomplicated; Z91.018 Allergy to other foods; E66.9 Obesity, unspecified; Z68.41 Body mass index [BMI] 40.0-44.9, adult; Y93.89 Activity, other specified; Y99.8 Other external cause status; Y92.89 Other specified places as the place of occurrence of the external cause
CPT/HCPCS: 96372; 99284; J1100; J1200

== ENCOUNTER 2017-07-25 21:34 | Emergency (ER) | payer OTHER ==
[~2017-07-25] VITALS: Ht 165.1 cm; Wt 104.3 kg
[~2017-07-25 21:34] MED LIST changes: +CETI10TA22 PO; +EPIPEN 2-P0.3 MG/0.3 IJ; +FAMO20TA5 PO; +PRED50TA PO
[2017-07-25 21:56] VITALS: BP 157/73
[2017-07-25] MEDS ORDERED: AMOX875T PO (22:05)
[2017-07-25] MEDS ORDERED: TRAM-48 PO (22:05)
--- NOTE | 2017-07-25 22:05 | PHYS DOC ---
Past Medical History Past Medical History: Asthma, Bronchitis, Diabetes-Type II, Hypertension, Other Additional Past Medical Histor: obese Past Surgical History: Cholecystectomy, Additional Past Surgical Histo: D&C Alcohol Use: None Drug Use: None Adult General Chief Complaint Chief Complaint: EARACHE/EAR PAIN [facility] Patient is a 32 year old female with history of diabetes, hypertension, who presents with moderate bilateral ear pain that began 3 days ago. Patient denies any fever. Review of Systems Review of Systems Constitutional: Denies fever or chills [] Eyes: Denies change in visual acuity, redness, or eye pain [] HENT: moderate bilateral ear pain Respiratory: Denies cough or shortness of breath [] Cardiovascular: No additional information not addressed in HPI [] GI: Denies abdominal pain, nausea, vomiting, bloody stools or diarrhea [] : Denies dysuria or hematuria [] Musculoskeletal: Denies back pain or joint pain [] Integument: Denies rash or skin lesions [] Neurologic: Denies headache, focal weakness or sensory changes [] Current Medications Current Medications Current Medications Medications (Trade) Dose Ordered Sig/Prem Start Time Stop Time Status Last Admin Dose Admin Acetaminophen/ Hydrocodone Bitart (Lortab 5/325) 1 tab 1X ONCE 07/25/17 22:00 07/25/17 22:01 UNV Allergies Allergies Allergies Coded Allergies Type Severity Reaction Last Updated Verified strawberry Allergy Intermediate SWELLS UP 08/25/15 Yes Uncoded Allergies Type Severity Reaction Last Updated Verified ONION Allergy Intermediate hives 08/25/15 Physical Exam Physical Exam Constitutional: Well developed, well nourished, no acute distress, non-toxic appearance. []Patient is tearful. HENT: Normocephalic, atraumatic, bilateral external ears normal, oropharynx moist, no oral exudates, nose normal. [] Bilateral TM are moderately injected. Eyes: PERRLA, EOMI, conjunctiva normal, no discharge. [] Neck: Normal range of motion, no tenderness, supple, no stridor. [] Cardiovascular:Heart rate regular rhythm, no murmur [] Lungs & Thorax: Bilateral breath sounds clear to auscultation [] Abdomen: Bowel sounds normal, soft, no tenderness, no masses, no pulsatile masses. [] Skin: Warm, dry, no erythema, no rash. [] Back: No tenderness, no CVA tenderness. [] Extremities: No tenderness, no cyanosis, no clubbing, ROM intact, no edema. [] Neurologic: Alert and oriented X 3, normal motor function, normal sensory function, no focal deficits noted. [] Psychologic: Affect normal, judgement normal, mood normal. [] Current Patient Data Vital Signs Vital Signs Date Time Temp Pulse Resp B/P (MAP) Pulse Ox O2 Delivery O2 Flow Rate FiO2 07/25/17 21:56 98.4 89 20 100 Room Air 98.4 EKG EKG [] Radiology/Procedures Radiology/Procedures [] Course & Med Decision Making Course & Med Decision Making Pertinent Labs and Imaging studies reviewed. (See chart for details) Patient has bilateral otitis media. Will be discharged with amoxicillin and Ultram. Follow-up with primary care doctor in 1-2 weeks. Dragon Disclaimer Dragon Disclaimer This electronic medical record was generated, in whole or in part, using a voice recognition dictation system. Departure Departure Impression: Primary Impression: Otitis media Disposition: 01 HOME, SELF-CARE Condition: STABLE Referrals: NO PCP (PCP) follow up with your doctor in 1-2 weeks Patient Instructions: Otitis Media, Adult Additional Instructions: You were seen for ear infection. Please complete your antibiotics. Follow-up with your doctor in 1-2 weeks. Scripts Tramadol Hcl (ULTRAM) 50 Mg Tablet 1 TAB PO Q6HRS, #30 TAB Prov: DARLENE TUCKER APRN 07/25/17 Amoxicillin (AMOXICILLIN) 875 Mg Tablet 1 TAB PO BID, #20 TAB Prov: DARLENE TUCKER APRN 07/25/17 Problem Qualifiers Primary Impression: Otitis media Otitis media type: other nonsuppurative Chronicity: acute Laterality: bilateral Recurrence: not specified as recurrent Qualified Codes: H65.193 - Other acute nonsuppurative otitis media, bilateral DARLENE TUCKER APRN Jul 25, 2017 22:05
[2017-07-25] MEDS ORDERED: HYDROcodone/APAP 5/325MG 1 TAB TABLET PO ONE (22:15)
== END 2017-07-25 22:15 | disposition home or self-care (01) ==
LOC: ER 21:34
DX: H66.93 Otitis media, unspecified, bilateral (principal); I10 Essential (primary) hypertension; J45.909 Unspecified asthma, uncomplicated; E11.9 Type 2 diabetes mellitus without complications; Z91.018 Allergy to other foods
CPT/HCPCS: 99283

== ENCOUNTER 2017-08-02 23:29 | Emergency (ER) | payer OTHER ==
[~2017-08-02 23:29] MED LIST changes: +TRAM-48 PO
[2017-08-02] MEDS ORDERED: AMOX1TAB11 PO (23:50)
--- NOTE | 2017-08-02 23:51 | PHYS DOC ---
Past Medical History Past Medical History: Asthma, Bronchitis, Diabetes-Type II, Hypertension, Other Additional Past Medical Histor: obese Past Surgical History: Cholecystectomy, Additional Past Surgical Histo: D&C Alcohol Use: None Drug Use: None Adult General Chief Complaint Chief Complaint: SORE THROAT HPI HPI Patient is a 32 year old male that presents to the emergency department the three-day history of sore throat with voice change. She reports no fever although she has had chills. She states she has one at home with similar symptoms. Review of Systems Review of Systems Constitutional: Chills without reported Eyes: Denies change in visual acuity, redness, or eye pain [] HENT: Sore throat, nasal congestion, ear pain Respiratory: Cough without shortness of breath Cardiovascular: Denies chest pain GI: Denies abdominal pain, nausea, vomiting, bloody stools or diarrhea [] : Denies dysuria or hematuria [] Musculoskeletal: Denies back pain or joint pain [] Integument: Denies rash or skin lesions [] Neurologic: Denies headache, focal weakness or sensory changes [] Endocrine: Denies polyuria or polydipsia [] Allergies Allergies Allergies Coded Allergies Type Severity Reaction Last Updated Verified onion Allergy Intermediate Hives 07/25/17 Yes strawberry Allergy Intermediate SWELLS UP 08/25/15 Yes Physical Exam Physical Exam Constitutional: Well developed, well nourished, no acute distress, non-toxic appearance. [] HENT: Normocephalic, atraumatic, bilateral external ears normal, right tympanic membrane erythematous with effusion, oropharynx moist and posterior pharynx erythematous, uvula midline, no oral exudates, nose normal. [] Eyes: PERRLA, EOMI, conjunctiva normal, no discharge. [] Neck: Normal range of motion, no tenderness, supple without lymphadenopathy, no stridor. [] Cardiovascular:Heart rate regular rhythm, no murmur [] Lungs & Thorax: Bilateral breath sounds clear to auscultation []] Skin: Warm, dry, no erythema, no rash. [] Back: No tenderness, no CVA tenderness. [] Neurologic: Alert and oriented X 3, normal motor function, normal sensory function, no focal deficits noted. [] EKG EKG [] Radiology/Procedures Radiology/Procedures [] Course & Med Decision Making Course & Med Decision Making Pertinent Labs and Imaging studies reviewed. (See chart for details) [] Dragon Disclaimer Dragon Disclaimer This electronic medical record was generated, in whole or in part, using a voice recognition dictation system. Departure Departure Impression: Primary Impression: Pharyngitis Additional Impression: Otitis media Disposition: 01 HOME, SELF-CARE Condition: STABLE Referrals: NO PCP (PCP) [facility] [place] Patient Instructions: Otitis Media, Adult, Viral Pharyngitis Additional Instructions: Magic mouthwash, 1 teaspoon gargle and spit every 2-4 hours as needed for throat pain. Tylenol alternating with Motrin [id number] as labeled and is indicated for symptom management. Increase fluid intake. Scripts Amoxicillin/Potassium Clav (AMOX TR-K CLV 875-125 MG TAB) 1 Each Tablet 1 TAB PO BID, #20 TAB Prov: MARIVEL SOARES APRN 08/02/17 Problem Qualifiers Primary Impression: Pharyngitis Pharyngitis/tonsillitis etiology: unspecified etiology Qualified Codes: J02.9 - Acute pharyngitis, unspecified Additional Impression: Otitis media Otitis media type: serous Chronicity: acute Laterality: right Recurrence : not specified as recurrent Qualified Codes: H65.01 - Acute serous otitis media, right ear MARIVEL SOARES APRN Aug 02, 2017 23:51
== END 2017-08-03 00:07 | disposition home or self-care (01) ==
LOC: ER 23:29
DX: J02.9 Acute pharyngitis, unspecified (principal); H65.01 Acute serous otitis media, right ear; J45.909 Unspecified asthma, uncomplicated; E11.9 Type 2 diabetes mellitus without complications; I10 Essential (primary) hypertension; E66.9 Obesity, unspecified; Z91.018 Allergy to other foods
CPT/HCPCS: 99283

== ENCOUNTER 2017-08-25 23:54 | Emergency (ER) | payer OTHER ==
[~2017-08-25] VITALS: Ht 165.1 cm; Wt 108.9 kg
[~2017-08-25 23:54] MED LIST changes: +AMOX1TAB11 PO; -NAPR500T3 PO; +NAPR500T4 PO
[2017-08-26 00:02] VITALS: BP 151/88
--- NOTE | 2017-08-26 00:07 | PHYS DOC ---
Past Medical History Past Medical History: Asthma, Bronchitis, Diabetes-Type II, Hypertension, Other Additional Past Medical Histor: obese Past Surgical History: Cholecystectomy, Additional Past Surgical Histo: D&C Alcohol Use: None Drug Use: None Adult General Chief Complaint Chief Complaint: LOWEREXTREMITY INJURY HPI HPI Patient is a 32 year old female with history of asthma hypertension and diabetes type 2 who presents today with right ankle and right knee pain that began today after she slipped and fell. Patient denies any loss of consciousness. Review of Systems Review of Systems Constitutional: Denies fever or chills [] Musculoskeletal: right ankle and right knee pain Integument: Denies rash or skin lesions [] Neurologic: Denies headache, focal weakness or sensory changes [] Allergies Allergies Allergies Coded Allergies Type Severity Reaction Last Updated Verified onion Allergy Intermediate Hives 07/25/17 Yes strawberry Allergy Intermediate SWELLS UP 08/25/15 Yes Physical Exam Physical Exam Constitutional: Well developed, well nourished, no acute distress, non-toxic appearance. [] Skin: Warm, dry, no erythema, no rash. [] Back: No tenderness, no CVA tenderness. [] Extremities: Right lower extremity with no obvious deformity. Tenderness on palpation of the right anterior knee. Tenderness diffusely to the right ankle. Patient unable to tolerate any range of motion to the right knee and right ankle. She is crying in pain. +2 right pedal pulse. Cap refill less than 2 seconds the right toes. Neurologic: Alert and oriented X 3, normal motor function, normal sensory function, no focal deficits noted. [] Psychologic: Affect normal, judgement normal, mood normal. [] Current Patient Data Vital Signs Vital Signs Date Time Temp Pulse Resp B/P (MAP) Pulse Ox O2 Delivery O2 Flow Rate FiO2 08/26/17 00:02 98.0 86 16 100 Room Air 98.0 EKG EKG [] Radiology/Procedures Radiology/Procedures [] Course & Med Decision Making Course & Med Decision Making Pertinent Labs and Imaging studies reviewed. (See chart for details) Patient is in the ED with right knee and right ankle pain after falling. Right knee and right ankle x-rays interpreted by Dr. Goode are negative for any acute findings. Patient was provided Ernst wrap. Ice elevation encouraged. She is to wrap her knee when she gets home because her pants are very tight. She is to follow-up with orthopedic doctor in one week. Discharged with Ultram for pain. Dragon Disclaimer Dragon Disclaimer This electronic medical record was generated, in whole or in part, using a voice recognition dictation system. Departure Departure Impression: Primary Impression: Fall from standing Additional Impressions: Right ankle sprain Contusion of right knee Disposition: HOME, SELF-CARE Condition: STABLE Referrals: NO PCP (PCP) ALEXIS DOBBS II, MD Follow-up in one week Patient Instructions: Ankle Sprain, Contusion, [id number] Additional Instructions: You were seen with right knee contusion and right ankle sprain. Wear the Ernst wrap provided as tolerated and needed. Ice and elevate the affected extremity. The prescribed medicine as needed for pain. Do not drive or operate machinery on the pain medicine. Follow-up with the provided orthopedic doctor in one week. Scripts Tramadol Hcl (ULTRAM) 50 Mg Tablet 1 TAB PO Q6HRS, #30 TAB Prov: DARLENE TUCKER APRN 08/26/17 Problem Qualifiers Primary Impression: Fall from standing Encounter type: initial encounter Qualified Codes: W19.XXXA - Unspecified fall, initial encounter Additional Impressions: Right ankle sprain Encounter type: initial encounter Involved ligament of ankle: unspecified ligament Qualified Codes: S93.401A - Sprain of unspecified ligament of right ankle, initial encounter Contusion of right knee Encounter type: initial encounter Qualified Codes: S80.01XA - Contusion of right knee, initial encounter DARLENE TUCKER APRN Aug 26, 2017 00:07
[2017-08-26] MEDS ORDERED: TRAM-48 PO (00:50)
--- NOTE | 2017-08-26 08:18 | RAD ---
Three-view right ankle study History: Right ankle pain. Findings: No acute fracture or dislocation or osteolytic process is seen. The mortise ankle joint is intact. IMPRESSION: No acute fracture.
--- NOTE | 2017-08-26 08:21 | RAD ---
Three-view right knee study History: Right knee pain. Findings: No acute fracture or dislocation or osteolytic process is seen. IMPRESSION: No acute fracture.
== END 2017-08-26 00:56 | disposition home or self-care (01) ==
LOC: ER 23:54
DX: S93.401A Sprain of unspecified ligament of right ankle, initial encounter (principal); S80.01XA Contusion of right knee, initial encounter; I10 Essential (primary) hypertension; E11.9 Type 2 diabetes mellitus without complications; J45.909 Unspecified asthma, uncomplicated; Z90.49 Acquired absence of other specified parts of digestive tract; Z91.018 Allergy to other foods; W01.0XXA Fall on same level from slipping, tripping and stumbling without subsequent striking against object, initial encounter; Y93.89 Activity, other specified; Y99.8 Other external cause status; Y92.89 Other specified places as the place of occurrence of the external cause
CPT/HCPCS: 73562; 73610; 99284

== ENCOUNTER 2017-09-29 22:33 | Emergency (ER) | payer OTHER, MEDICAID ==
[~2017-09-29] VITALS: Ht 165.1 cm; Wt 108.9 kg
[~2017-09-29 22:33] MED LIST changes: +NAPR-683 PO; -NAPR500T PO
[2017-09-29 22:37] VITALS: BP 168/109
[2017-09-29] MEDS ORDERED: PROAIR RESPICL90 MCG IH (23:14)
[2017-09-29] MEDS ORDERED: AMOX875T PO (23:14)
[2017-09-29] MEDS ORDERED: BENZ100C PO (23:14)
[2017-09-29] MEDS ORDERED: PRED50TA PO (23:14)
--- NOTE | 2017-09-29 23:14 | PHYS DOC ---
Past Medical History Past Medical History: Asthma, Bronchitis, Diabetes-Type I, Hypertension Additional Past Medical Histor: obese Past Surgical History: Cholecystectomy, , Other Additional Past Surgical Histo: D&C Alcohol Use: None Drug Use: None Adult General Chief Complaint Chief Complaint: COUGH HPI HPI Patient is a 32 year old female with history of asthma who presents today with nasal congestion and coughing and a sore throat for one week. Patient denies any fever. She states she has tried [id number] medications with no relief. She states she has tried her breathing treatments with no relief. Review of Systems Review of Systems Constitutional: Denies fever or chills [] Eyes: Denies change in visual acuity, redness, or eye pain [] HENT: Reports nasal congestion and sore throat [] Respiratory: Reports coughing denies shortness of breath [] Cardiovascular: No additional information not addressed in HPI [] GI: Denies abdominal pain, nausea, vomiting, bloody stools or diarrhea [] : Denies dysuria or hematuria [] Musculoskeletal: Denies back pain or joint pain [] Integument: Denies rash or skin lesions [] Neurologic: Denies headache, focal weakness or sensory changes [] All other systems were reviewed and found to be within normal limits, except as documented in this note. Current Medications Current Medications Current Medications Medications (Trade) Dose Ordered Sig/Prem Start Time Stop Time Status Last Admin Dose Admin Albuterol/ Ipratropium (Duoneb) 3 ml 1X ONCE 09/29/17 23:15 09/29/17 23:16 Amoxicillin (Amoxil) 500 mg 1X ONCE 09/29/17 23:15 09/29/17 23:16 Prednisone (Prednisone) 60 mg 1X ONCE 09/29/17 23:15 09/29/17 23:16 Allergies Allergies Allergies Coded Allergies Type Severity Reaction Last Updated Verified onion Allergy Intermediate Hives 07/25/17 Yes strawberry Allergy Intermediate SWELLS UP 08/25/15 Yes Physical Exam Physical Exam Constitutional: Well developed, well nourished, no acute distress, non-toxic appearance. [] HENT: Normocephalic, atraumatic, bilateral external ears normal, oropharynx moist, no oral exudates, nose normal. [] +3 tonsils with mild erythema and exudate on the right side. Midline uvula. +2 anterior cervical adenopathy. Eyes: PERRLA, EOMI, conjunctiva normal, no discharge. [] Neck: Normal range of motion, no tenderness, supple, no stridor. [] Cardiovascular:Heart rate regular rhythm, no murmur [] Lungs & Thorax: Bilateral breath sounds clear to auscultation [] Abdomen: Bowel sounds normal, soft, no tenderness, no masses, no pulsatile masses. [] Skin: Warm, dry, no erythema, no rash. [] Back: No tenderness, no CVA tenderness. [] Extremities: No tenderness, no cyanosis, no clubbing, ROM intact, no edema. [] Neurologic: Alert and oriented X 3, normal motor function, normal sensory function, no focal deficits noted. [] Psychologic: Affect normal, judgement normal, mood normal. [] Current Patient Data Vital Signs Vital Signs Date Time Temp Pulse Resp B/P (MAP) Pulse Ox O2 Delivery O2 Flow Rate FiO2 09/29/17 23:09 96 Room Air 09/29/17 22:37 98.7 95 20 98.7 EKG EKG [] Radiology/Procedures Radiology/Procedures [] Course & Med Decision Making Course & Med Decision Making Pertinent Labs and Imaging studies reviewed. (See chart for details) Patient is in the ED with symptoms consistent of acute bronchitis, slight asthma exacerbation, upper respiratory infection and tonsillitis. Discharged with amoxicillin for 10 days. Tylenol Motrin for pain or fever. Discharged with albuterol inhaler prednisone and Tessalon Perles. Saltwater gargles recommended. Emphasized importance of following up with her PCP next week. Dragon Disclaimer Dragon Disclaimer This electronic medical record was generated, in whole or in part, using a voice recognition dictation system. Departure Departure Impression: Primary Impression: Acute bronchitis Additional Impressions: Upper respiratory infection Acute tonsillitis Asthma exacerbation Disposition: 01 HOME, SELF-CARE Condition: STABLE Referrals: NO PCP (PCP) follow up with your doctor next week Patient Instructions: Acute Bronchitis, Asthma, Adult, Tonsillitis, Upper Respiratory Infection, Adult, [id number] Additional Instructions: You were seen for acute bronchitis, slight asthma exacerbation and upper respiratory infection and tonsillitis. We'll put you on antibiotics. Take them as prescribed ensure you complete them. Use saltwater gargles as needed for sore throat. Take Tylenol/Motrin for pain or fever. Scripts Amoxicillin (AMOXICILLIN) 875 Mg Tablet 1 TAB PO BID, #20 TAB Prov: DARLENE TUCKER SULEMA 09/29/17 Prednisone (PREDNISONE) 50 Mg Tablet 1 TAB PO DAILY, #4 TAB Prov: DARLENE TUCKER SULEMA 09/29/17 Benzonatate (TESSALON PERLE) 100 Mg Capsule 1 CAP PO TID, #30 CAP Prov: FLAQUITAFerdinandDARLENE SULEMA 09/29/17 Albuterol Sulfate (Proair Respiclick) 90 Mcg Aer.pow.ba 1 PUFF IH PRN Q6HRS Y for SHORTNESS OF BREATH, #1 INHALER Prov: DARLENE TUCKER SULEMA 09/29/17 Problem Qualifiers Primary Impression: Acute bronchitis Bronchitis organism: unspecified organism Qualified Codes: J20.9 - Acute bronchitis, unspecified Additional Impressions: Upper respiratory infection URI type: unspecified URI Qualified Codes: J06.9 - Acute upper respiratory infection, unspecified Acute tonsillitis Pharyngitis/tonsillitis etiology: unspecified etiology Qualified Codes: J03.90 - Acute tonsillitis, unspecified Asthma exacerbation Asthma severity: mild Asthma persistence: intermittent Qualified Codes: J45.21 - Mild intermittent asthma with (acute) exacerbation MARILYNDARLENE EDEN SULEMA Sep 29, 2017 23:14
[2017-09-29] MEDS ORDERED: IPRATRPIUM/ALBUTEROL 0.5/2.5MG 3 ML NEBU. NEB ONE (23:15)
[2017-09-29] MEDS ORDERED: predniSONE 20 MG TABLET PO ONE (23:15)
[2017-09-29] MEDS ORDERED: AMOXICILLIN 250 MG CAPSULE. PO ONE (23:15)
== END 2017-09-29 23:34 | disposition home or self-care (01) ==
LOC: ER 22:33
DX: J20.9 Acute bronchitis, unspecified (principal); J06.9 Acute upper respiratory infection, unspecified; J03.90 Acute tonsillitis, unspecified; J45.21 Mild intermittent asthma with (acute) exacerbation; E10.9 Type 1 diabetes mellitus without complications; I10 Essential (primary) hypertension; E66.9 Obesity, unspecified; Z68.39 Body mass index [BMI] 39.0-39.9, adult; Z90.49 Acquired absence of other specified parts of digestive tract; Z91.018 Allergy to other foods
CPT/HCPCS: 94640; 99283; J7512

== ENCOUNTER 2017-10-05 12:31 | Emergency (ER) | payer OTHER, MEDICAID ==
[~2017-10-05] VITALS: Ht 165.1 cm; Wt 108.9 kg
[~2017-10-05 12:31] MED LIST changes: +BENZ100C PO; +PROAIR RESPICL90 MCG IH
[2017-10-05 12:42] VITALS: BP 147/69
[2017-10-05] MEDS ORDERED: MECLIZINE HCL 12.5 MG TABLET. PO ONE (13:15)
--- NOTE | 2017-10-05 13:18 | PHYS DOC ---
Past Medical History Past Medical History: Asthma, Bronchitis, Diabetes-Type I, Hypertension Additional Past Medical Histor: obese Past Surgical History: Cholecystectomy, , Other Additional Past Surgical Histo: D&C Alcohol Use: None Drug Use: None Adult General Chief Complaint Chief Complaint: DIZZY/LIGHT HEADED HPI HPI Patient is a 32 year old female presents to the emergency department with a history of vomiting this morning at 0300 and then becoming dizzy. Patient states she has had two more episodes of dizziness since. Patient was seen here 6 days ago when and diagnosed with URI and did not skinny her prescriptions. Patient denies fever, chills, or diarrhea. Patient does states she has tenderness over the maxillary sinus areas. Review of Systems Review of Systems Constitutional: Denies fever or chills [] Eyes: Denies change in visual acuity, redness, or eye pain [] HENT: Denies nasal congestion or sore throat [] Respiratory: Denies cough or shortness of breath [] Cardiovascular: No additional information not addressed in HPI [] GI: Denies abdominal pain, nausea, bloody stools or diarrhea. C/o vomiting : Denies dysuria or hematuria [] Musculoskeletal: Denies back pain or joint pain [] Integument: Denies rash or skin lesions [] Neurologic: Denies headache, focal weakness or sensory changes, C/o dizziness Endocrine: Denies polyuria or polydipsia [] All other systems were reviewed and found to be within normal limits, except as documented in this note. Current Medications Current Medications Current Medications Medications (Trade) Dose Ordered Sig/Prem Start Time Stop Time Status Last Admin Dose Admin Meclizine HCl (Antivert) 25 mg 1X ONCE 10/05/17 13:15 10/05/17 13:16 DC 10/05/17 13:13 25 MG Potassium Chloride (Klor-Con) 40 meq 1X ONCE 10/05/17 14:30 10/05/17 14:31 DC 10/05/17 14:29 40 MEQ Allergies Allergies Allergies Coded Allergies Type Severity Reaction Last Updated Verified onion Allergy Intermediate Hives 07/25/17 Yes strawberry Allergy Intermediate SWELLS UP 08/25/15 Yes Physical Exam Physical Exam Constitutional: Well developed, well nourished, no acute distress, non-toxic appearance. [] HENT: Normocephalic, atraumatic, bilateral external ears normal, oropharynx moist, no oral exudates, nose normal. Bilateral TM normal, maxillary sinus tenderness noted, no frontal sinus tenderness noted. Eyes: PERRLA, EOMI, conjunctiva normal, no discharge. [] Neck: Normal range of motion, no tenderness, supple, no stridor. [] Cardiovascular:Heart rate regular rhythm, no murmur [] Lungs & Thorax: Bilateral breath sounds clear to auscultation [] Abdomen: Bowel sounds normal, soft, no tenderness, no masses, no pulsatile masses. [] Skin: Warm, dry, no erythema, no rash. [] Extremities: No tenderness, no cyanosis, no clubbing, ROM intact, no edema. [] Neurologic: Alert and oriented X 3, normal motor function, normal sensory function, no focal deficits noted. [] Psychologic: Affect normal, judgement normal, mood normal. [] Current Patient Data Vital Signs Vital Signs Date Time Temp Pulse Resp B/P (MAP) Pulse Ox O2 Delivery O2 Flow Rate FiO2 10/05/17 12:42 98.0 98 16 147/69 (95) 98 Room Air 98.0 Lab Values Laboratory Tests Test 10/05/17 13:26 White Blood Count 10.8 x10^3/uL (4.0-11.0) Red Blood Count 4.30 x10^6/uL (3.50-5.40) Hemoglobin 13.1 g/dL (12.0-15.5) Hematocrit 38.6 % (36.0-47.0) Mean Corpuscular Volume 90 fL (79-100) Mean Corpuscular Hemoglobin 30 pg (25-35) Mean Corpuscular Hemoglobin Concent 34 g/dL (31-37) Red Cell Distribution Width 13.0 % (11.5-14.5) Platelet Count 235 x10^3/uL (140-400) Neutrophils (%) (Auto) 60 % (31-73) Lymphocytes (%) (Auto) 28 % (24-48) Monocytes (%) (Auto) 8 % (0-9) Eosinophils (%) (Auto) 4 % (0-3) H Basophils (%) (Auto) 1 % (0-3) Neutrophils # (Auto) 6.4 x10^3uL (1.8-7.7) Lymphocytes # (Auto) 3.0 x10^3/uL (1.0-4.8) Monocytes # (Auto) 0.9 x10^3/uL (0.0-1.1) Eosinophils # (Auto) 0.4 x10^3/uL (0.0-0.7) Basophils # (Auto) 0.1 x10^3/uL (0.0-0.2) Sodium Level 141 mmol/L (136-145) Potassium Level 3.0 mmol/L (3.5-5.1) L Chloride Level 106 mmol/L (98-107) Carbon Dioxide Level 29 mmol/L (21-32) Anion Gap 6 (6-14) Blood Urea Nitrogen 10 mg/dL (7-20) Creatinine 0.8 mg/dL (0.6-1.0) Estimated GFR (Cockcroft-Gault) 101.2 BUN/Creatinine Ratio 13 (6-20) Glucose Level 123 mg/dL (70-99) H Calcium Level 9.3 mg/dL (8.5-10.1) Total Bilirubin 0.4 mg/dL (0.2-1.0) Aspartate Amino Transferase (AST) 32 U/L (15-37) Alanine Aminotransferase (ALT) 47 U/L (14-59) Alkaline Phosphatase 67 U/L (46-116) Total Protein 7.4 g/dL (6.4-8.2) Albumin 3.6 g/dL (3.4-5.0) Albumin/Globulin Ratio 0.9 (1.0-1.7) L Laboratory Tests 10/05/17 13:26 Laboratory Tests 10/05/17 13:26 EKG EKG EKG completed at 1416 heart rate 66 sinus rhythm noted no STEMI per [] Radiology/Procedures Radiology/Procedures [facility] [address] [place] [address] IMAGING REPORT Signed PATIENT: NICO KAPOOR ACCOUNT: [id number] : 1985 LOCATION: ER AGE: 32 SEX: F EXAM STATUS: REG ER ORD. PHYSICIAN: EDSON RABGAO APRN REASON: dizziness PROCEDURE: CT HEAD WO CONTRAST CT HEAD WITHOUT [id number]/24/2017 3:12 PM Indication: dizziness Comparison: None available Procedure: Multidetector CT imaging of the head was performed without the administration of contrast. Findings: Artifact from the patient's hair clips and a left hearing somewhat limited exam. No evidence of acute intracranial hemorrhage is identified. No evidence of territorial infarct is seen. Note that CT is limited for evaluation of acute ischemia. MRI is more sensitive evaluation as clinically indicated. No mass effect or midline shift is identified . The ventricles and basilar cisterns have an appropriate appearance. No abnormal extra-axial fluid collections are seen. No acute osseous changes are identified. Impression: No evidence of acute intracranial abnormality PQRS Compliance Statement: One or more of the following individualized dose reduction techniques were utilized for this examination: 1. Automated exposure control 2. Adjustment of the mA and/or kV according to patient size 3. Use of iterative reconstruction technique DICTATED and SIGNED BY: PAPO QUIROGA MD DATE: 10/05/17 [id number] CC: EDSON RABAGO APRN; NO PCP; NON,STAFF ~ [] Course & Med Decision Making Course & Med Decision Making Pertinent Labs and Imaging studies reviewed. (See chart for details) CBC normal, CMP with potassium of 3.0. She was provided with a potassium supplement here in the emergency department. EKG completed was normal as well. No STEMI per Dr. Higgins. Patient was provided with meclizine here in the emergency department which she states helped with her dizziness. She'll be discharged home with meclizine and Zofran for nausea and vomiting. Patient was provided with signs and symptoms to return back to the emergency department. All questions and concerns been answered at the patients bedside. I've spoken with the patient and/or caregivers. I've explained the patient's condition, diagnosis and treatment plan based on information available to me at this time. I've answered the patient's and/or caregivers questions and addressed any concerns. The patient and/or caregivers have a good understanding the patient's diagnosis, condition and treatment plan as can be expected at this point. Vital signs have been stabilized. The patient's condition is stable for discharge from the emergency department. The patient will pursue further outpatient evaluation with her primary care provider or other designated consulting physician as outlined in the discharge instructions. Patient and/or caregivers are agreeable to this plan of care and follow-up instructions have been explained in detail. The patient and/or caregivers have received these instructions in written format and expressed understanding of these discharge instructions. The patient and her caregivers are aware that if any significant change in condition or worsening of symptoms should prompt him to immediately return to this of the closest emergency department. If an emergent department is not readily available I would encourage him to call 911. [] Dragon Disclaimer Dragon Disclaimer This electronic medical record was generated, in whole or in part, using a voice recognition dictation system. Departure Departure Impression: Primary Impression: Vertigo Disposition: HOME, SELF-CARE Condition: STABLE Referrals: NO PCP (PCP) Patient Instructions: Vertigo, [id number] Additional Instructions: Activity as tolerated Medication as prescribed Meclizine may cause drowsiness do not take if you need to be alert and oriented Followup with your primary care provider in 3-5 days for a repeat Potassium level Return to emergency department as needed for signs and symptoms that become worse. Scripts Ondansetron (ZOFRAN ODT) 4 Mg Tab.rapdis 1 TAB SL Q8HRS, #10 TAB Prov: EDSON RABAGO APRN 10/05/17 Meclizine Hcl (MECLIZINE HCL) 25 Mg Tablet 1 TAB PO PRN TID Y for DIZZINESS, #30 TAB Prov: EDSON RABAGO APRN 10/05/17 EDSON RABAGO APRN Oct 05, 2017 13:18
[2017-10-05 13:38] LABS: BASO # 0.1 x10^3/uL (0.0-0.2); BASO % 1 % (0-3); EOS % 4 % (0-3); HEMATOCRIT 38.6 % (36.0-47.0); HEMOGLOBIN 13.1 g/dL (12.0-15.5); LYMPH % 28 % (24-48); MEAN CORPUSCULAR HEMOGLOBIN 30 pg (25-35); MEAN CORPUSCULAR HGB CONC 34 g/dL (31-37); MEAN CORPUSCULAR VOLUME 90 fL (79-100); MONO % 8 % (0-9); NEUT % 60 % (31-73); PLATELET COUNT 235 x10^3/uL (140-400); WHITE BLOOD COUNT 10.8 x10^3/uL (4.0-11.0)
--- NOTE | 2017-10-05 13:46 | RAD ---
CT HEAD WITHOUT [id number]/24/2017 3:12 PM Indication: dizziness Comparison: None available Procedure: Multidetector CT imaging of the head was performed without the administration of contrast. Findings: Artifact from the patient's hair clips and a left hearing somewhat limited exam. No evidence of acute intracranial hemorrhage is identified. No evidence of territorial infarct is seen. Note that CT is limited for evaluation of acute ischemia. MRI is more sensitive evaluation as clinically indicated. No mass effect or midline shift is identified . The ventricles and basilar cisterns have an appropriate appearance. No abnormal extra-axial fluid collections are seen. No acute osseous changes are identified. Impression: No evidence of acute intracranial abnormality PQRS Compliance Statement: One or more of the following individualized dose reduction techniques were utilized for this examination: 1. Automated exposure control 2. Adjustment of the mA and/or kV according to patient size 3. Use of iterative reconstruction technique
[2017-10-05 14:03] LABS: CALCIUM 9.3 mg/dL (8.5-10.1); CREATININE 0.8 mg/dL (0.6-1.0); GFR 101.2
[2017-10-05 14:11] LABS: ALBUMIN 3.6 g/dL (3.4-5.0); ALBUMIN/GLOBULIN RATIO 0.9 (1.0-1.7); TOTAL BILIRUBIN 0.4 mg/dL (0.2-1.0); TOTAL PROTEIN 7.4 g/dL (6.4-8.2)
--- NOTE | 2017-10-05 14:29 | EKG ---
[facility] [address] [place] [address] Test Date: 2017-10-05 Test Time: 14:16:31 Pat Name: NICO KAPOOR Department: Room: Gender: F Supervisory Clerk: : 1985 Requested By: EDSON RABAGO Order Number: [id number] Reading MD: Greg Rees Measurements Intervals [place] Rate: 66 P: 22 SC: 162 QRS: 26 QRSD: 88 T: 7 QT: 400 QTc: 421 Interpretive Statements SINUS RHYTHM Electronically Signed On 10-15-2017 14:12:25 [employer]ULTURAL LENDER by Greg Rees
[2017-10-05] MEDS ORDERED: POTASSIUM CHLORIDE 20 MEQ TABLET.ER. PO ONE (14:30)
[2017-10-05] MEDS ORDERED: ONDA4TAB10 SL (14:55)
[2017-10-05] MEDS ORDERED: MECL25TA3 PO (14:55)
== END 2017-10-05 15:09 | disposition home or self-care (01) ==
LOC: ER 12:31
DX: R42 Dizziness and giddiness (principal); R11.10 Vomiting, unspecified; J45.909 Unspecified asthma, uncomplicated; I10 Essential (primary) hypertension; E10.9 Type 1 diabetes mellitus without complications; E66.9 Obesity, unspecified; Z68.39 Body mass index [BMI] 39.0-39.9, adult; Z91.018 Allergy to other foods; Z91.048 Other nonmedicinal substance allergy status
CPT/HCPCS: 36415; 70450; 80053; 85025; 93005; 99285; J8597

== ENCOUNTER 2017-12-18 02:16 | Emergency (ER) | payer OTHER, MEDICAID ==
[2017-12-18 03:32] LABS: INFLUENZA A PATIENT NEGATIVE (NEGATIVE); INFLUENZA B PATIENT NEGATIVE (NEGATIVE); OBC FLU VALID
[2017-12-18] MEDS: ACETAMINOPHEN 500 MG TABLET PO ×2 (04:26)
[2017-12-18] MEDS: IBUPROFEN 600 MG TABLET. PO ×2 (04:27)
[2017-12-18 12:35] LABS: NEGATIVE OBC STREP NEG; POSITIVE OBC STREP POS
== END 2017-12-18 04:29 | disposition home or self-care (01) ==
LOC: ER 02:16
DX: J02.0 Streptococcal pharyngitis (principal); J45.909 Unspecified asthma, uncomplicated; E10.9 Type 1 diabetes mellitus without complications; E66.9 Obesity, unspecified; I10 Essential (primary) hypertension; Z79.4 Long term (current) use of insulin; Z68.39 Body mass index [BMI] 39.0-39.9, adult; Z91.018 Allergy to other foods
CPT/HCPCS: 87804; 87804-59; 87880; 99284

== ENCOUNTER 2017-12-26 16:00 | Emergency (ER) | payer OTHER, MEDICAID | END 2017-12-26 18:21 | disposition home or self-care (01) | LOC: ER 16:00 | DX: J20.9 Acute bronchitis, unspecified (principal); J45.909 Unspecified asthma, uncomplicated; E10.9 Type 1 diabetes mellitus without complications; I10 Essential (primary) hypertension; E66.9 Obesity, unspecified; Z68.41 Body mass index [BMI] 40.0-44.9, adult; Z90.49 Acquired absence of other specified parts of digestive tract; Z91.018 Allergy to other foods | CPT/HCPCS: 71046; 99284-25 ==

== ENCOUNTER 2018-04-07 13:56 | Emergency (ER) | payer OTHER, MEDICAID ==
[2018-04-07] MEDS: DEXAMETHASONE SOD PHOS 4 MG/ML VIAL PO (14:48)
[2018-04-07] MEDS: DEXAMETHASONE SOD PHOS 4 MG/ML VIAL IV (14:48)
[2018-04-07] MEDS: HYDROcodone/APAP 5/325MG 1 TAB TABLET PO (14:50)
[2018-04-07] MEDS ORDERED: DEXAMETHASONE 4 MG TABLET PO (15:00)
[2018-04-08 06:15] LABS: NEGATIVE OBC STREP NEG; POSITIVE OBC STREP POS
== END 2018-04-07 15:00 | disposition home or self-care (01) ==
LOC: ER 13:56
DX: J03.90 Acute tonsillitis, unspecified (principal); I10 Essential (primary) hypertension; E10.9 Type 1 diabetes mellitus without complications; J45.909 Unspecified asthma, uncomplicated; Z91.018 Allergy to other foods
CPT/HCPCS: 87070; 87880; 96374; 96375; 99283; 99284-25; J1100

== ENCOUNTER 2018-05-26 18:28 | Emergency (ER) | payer OTHER, MEDICAID | END 2018-05-26 21:19 | disposition home or self-care (01) | LOC: ER 21:19 | DX: S20.461A Insect bite (nonvenomous) of right back wall of thorax, initial encounter (principal); J45.909 Unspecified asthma, uncomplicated; E11.9 Type 2 diabetes mellitus without complications; I10 Essential (primary) hypertension; Z91.018 Allergy to other foods; W57.XXXA Bitten or stung by nonvenomous insect and other nonvenomous arthropods, initial encounter; Y93.89 Activity, other specified; Y99.8 Other external cause status; Y92.89 Other specified places as the place of occurrence of the external cause | CPT/HCPCS: 99283 ==

== ENCOUNTER 2018-06-27 12:28 | Emergency (ER) | payer OTHER, MEDICAID ==
[~2018-06-27] VITALS: Ht 165.1 cm; Wt 108.9 kg
[~2018-06-27 12:28] MED LIST changes: +AMOX500C PO; +MECL25TA3 PO; -METF-620 PO; +METF10003 PO; +NAPR-514 PO; -NAPR500T4 PO; +ONDA4TAB10 SL; +PROAIR HFA8.5 GM INH; +TRIA80OI TP
--- NOTE | 2018-06-27 12:51 | PHYS DOC ---
Past Medical History Past Medical History: Asthma, Bronchitis, Diabetes-Type I, Hypertension Additional Past Medical Histor: OBESITY Past Surgical History: Cholecystectomy, , Other Additional Past Surgical Histo: D&C Alcohol Use: None Drug Use: None Adult General Chief Complaint Chief Complaint: ABDOMINAL PAIN HPI HPI Patient is a 33 year old female with history of hypertension, diabetes type 2, who presents today complaining of food poisoning. Patient states she had [employer] a couple minutes ago and developed immediate diarrhea, abdominal pain 10 out of 10 described as sharp and constant, nausea and vomiting. Denies any hematemesis or melena, Review of Systems Review of Systems Constitutional: Denies fever or chills [] Eyes: Denies change in visual acuity, redness, or eye pain [] HENT: Denies nasal congestion or sore throat [] Respiratory: Denies cough or shortness of breath [] Cardiovascular: No additional information not addressed in HPI [] GI: Reports abdominal pain, nausea vomiting and diarrhea, : Denies dysuria or hematuria [] Musculoskeletal: Denies back pain or joint pain [] Integument: Denies rash or skin lesions [] Neurologic: Denies headache, focal weakness or sensory changes [] All other systems were reviewed and found to be within normal limits, except as documented in this note. Current Medications Current Medications Current Medications Medications (Trade) Dose Ordered Sig/Prem Start Time Stop Time Status Last Admin Dose Admin Dicyclomine HCl (Bentyl) 20 mg 1X ONCE 06/27/18 13:00 8 13:01 DC 06/27/18 13:31 20 MG Fentanyl Citrate (Fentanyl 2ml Vial) 50 mcg 1X ONCE 06/27/18 13:00 06/27/18 13:01 DC 06/27/18 13:29 50 MCG Ondansetron HCl (Zofran) 4 mg 1X ONCE 06/27/18 13:00 06/27/18 13:01 DC 06/27/18 13:30 4 MG Pantoprazole Sodium (PROTONIX VIAL for IV PUSH) 40 mg 1X ONCE 06/27/18 13:00 06/27/18 13:01 DC 06/27/18 13:30 40 MG Sodium Chloride 1,000 ml @ 1,000 mls/hr 1X ONCE 06/27/18 13:00 06/27/18 13:59 DC 06/27/18 13:32 1,000 MLS/HR Allergies Allergies Allergies Coded Allergies Type Severity Reaction Last Updated Verified onion Allergy Intermediate Hives 07/25/17 Yes strawberry Allergy Intermediate SWELLS UP 08/25/15 Yes Physical Exam Physical Exam Constitutional: Well developed, well nourished, no acute distress, non-toxic appearance. [] HENT: Normocephalic, atraumatic, bilateral external ears normal, oropharynx moist, no oral exudates, nose normal. [] Eyes: PERRLA, EOMI, conjunctiva normal, no discharge. [] Neck: Normal range of motion, no tenderness, supple, no stridor. [] Cardiovascular:Heart rate regular rhythm, no murmur [] Lungs & Thorax: Bilateral breath sounds clear to auscultation [] Abdomen: Rounded abdomen. Bowel sounds normal, soft, no tenderness, no masses, no pulsatile masses. [] Skin: Warm, dry, no erythema, no rash. [] Back: No tenderness, no CVA tenderness. [] Extremities: No tenderness, no cyanosis, no clubbing, ROM intact, no edema. [] Neurologic: Alert and oriented X 3, normal motor function, normal sensory function, no focal deficits noted. [] Psychologic: Affect normal, judgement normal, mood normal. [] Current Patient Data Vital Signs Vital Signs Date Time Temp Pulse Resp B/P (MAP) Pulse Ox O2 Delivery O2 Flow Rate FiO2 06/27/18 14:21 60 161/74 (103) 96 Room Air 06/27/18 13:52 16 06/27/18 12:38 99.3 99.3 Lab Values Laboratory Tests Test 06/27/18 12:39 06/27/18 13:00 06/27/18 13:05 POC Urine HCG, Qualitative Hcg negative (Negative) Urine Collection Type Unknown Urine Color Abi Urine Clarity Clear Urine pH 5.0 Urine Specific [place] >=1.030 Urine Protein Negative mg/dL (NEG-TRACE) Urine Glucose (UA) Negative mg/dL (NEG) Urine Ketones (Stick) Trace mg/dL (NEG) Urine Blood Small (NEG) Urine Nitrite Negative (NEG) Urine Bilirubin Small (NEG) Urine Urobilinogen Dipstick 0.2 mg/dL (0.2 mg/dL) Urine Leukocyte Esterase Negative (NEG) Urine RBC 0 /HPF (0-2) Urine WBC Occ /HPF (0-4) Urine Squamous Epithelial Cells Mod /LPF Urine Bacteria Moderate /HPF (0-FEW) Urine Mucus Mod /LPF Urine Yeast Present /HPF White Blood Count 10.6 x10^3/uL (4.0-11.0) Red Blood Count 4.44 x10^6/uL (3.50-5.40) Hemoglobin 13.8 g/dL (12.0-15.5) Hematocrit 40.0 % (36.0-47.0) Mean Corpuscular Volume 90 fL (79-100) Mean Corpuscular Hemoglobin 31 pg (25-35) Mean Corpuscular Hemoglobin Concent 35 g/dL (31-37) Red Cell Distribution Width 13.3 % (11.5-14.5) Platelet Count 227 x10^3/uL (140-400) Neutrophils (%) (Auto) 63 % (31-73) Lymphocytes (%) (Auto) 23 % (24-48) L Monocytes (%) (Auto) 9 % (0-9) Eosinophils (%) (Auto) 5 % (0-3) H Basophils (%) (Auto) 1 % (0-3) Neutrophils # (Auto) 6.6 x10^3uL (1.8-7.7) Lymphocytes # (Auto) 2.4 x10^3/uL (1.0-4.8) Monocytes # (Auto) 0.9 x10^3/uL (0.0-1.1) Eosinophils # (Auto) 0.5 x10^3/uL (0.0-0.7) Basophils # (Auto) 0.1 x10^3/uL (0.0-0.2) Sodium Level 140 mmol/L (136-145) Potassium Level 3.4 mmol/L (3.5-5.1) L Chloride Level 104 mmol/L (98-107) Carbon Dioxide Level 26 mmol/L (21-32) Anion Gap 10 (6-14) Blood Urea Nitrogen 10 mg/dL (7-20) Creatinine 0.9 mg/dL (0.6-1.0) Estimated GFR (Cockcroft-Gault) 87.8 BUN/Creatinine Ratio 11 (6-20) Glucose Level 145 mg/dL (70-99) H Calcium Level 9.0 mg/dL (8.5-10.1) Total Bilirubin 0.4 mg/dL (0.2-1.0) Aspartate Amino Transferase (AST) 32 U/L (15-37) Alanine Aminotransferase (ALT) 55 U/L (14-59) Alkaline Phosphatase 80 U/L (46-116) Total Protein 7.9 g/dL (6.4-8.2) Albumin 3.9 g/dL (3.4-5.0) Albumin/Globulin Ratio 1.0 (1.0-1.7) Lipase 167 U/L (73-393) Ethyl Alcohol Level < 10 mg/dL (0-10) Laboratory Tests 06/27/18 13:05 Laboratory Tests 06/27/18 13:05 EKG EKG [] Radiology/Procedures Radiology/Procedures [] Course & Med Decision Making Course & Med Decision Making Pertinent Labs and Imaging studies reviewed. (See chart for details) This is a 33-year-old female patient presenting to the ED today stating she has food poisoning after having [employer]. She has nausea vomiting diarrhea and abdominal cramping that began today after eating at [employer]. Patient's lab work is negative for any acute findings. Noted for yeast in urine-dc with fluconazole. Patient was given IV fluids Zofran Protonix dicyclomine, she is feeling better. She'll be discharged to home with Zofran. Follow-up with her own doctor in 1-2 weeks. Instructed to push fluids, maintain good hand hygiene. Dragon Disclaimer Dragon Disclaimer This electronic medical record was generated, in whole or in part, using a voice recognition dictation system. Departure Departure Impression: Primary Impression: Food poisoning Additional Impression: Yeast infection Disposition: 01 HOME, SELF-CARE Condition: STABLE Referrals: NO PCP (PCP) MONI PUCKETT MD follow up in one week Patient Instructions: Food Poisoning Additional Instructions: You were evaluated in the emergency room for food poisoning, push fluids, maintain good hand hygiene. Take the prescribed Zofran as needed follow-up with your own doctor in one to 2 weeks. Come back to the emergency room at any point symptoms worsen, you have yeast in your urine please take fluconazole prescribed for this. Scripts Fluconazole (DIFLUCAN) 150 Mg Tablet 1 TAB PO ONCE, #1 TAB 0 Refills Prov: MUTUNGADARLENE GLOBAL MARKETING COORDINATOR 06/27/18 Ondansetron (ZOFRAN ODT) 4 Mg Tab.rapdis 1 TAB SL Q8HRS, #15 TAB Prov: DARLENE TUCKER APRN 06/27/18 Problem Qualifiers Primary Impression: Food poisoning Encounter type: initial encounter Injury intent: accidental or unintentional Qualified Codes: T62.91XA - Toxic effect of unspecified noxious substance eaten as food, accidental (unintentional), initial encounter DARLENE TUCKER APRN Jun 27, 2018 12:51
[2018-06-27] MEDS ORDERED: PANTOPRAZOLE IV PUSH 40 MG VIAL. IVP ONE (13:00)
[2018-06-27] MEDS ORDERED: IV NORMAL SALINE 1000ML BAG 1,000 ML IV ONE (13:00)
[2018-06-27] MEDS ORDERED: DICYCLOMINE HCL 10 MG CAPSULE PO ONE (13:00)
[2018-06-27] MEDS ORDERED: fentaNYL PF VIAL 100 MCG/2 ML VIAL IV ONE (13:00)
[2018-06-27] MEDS ORDERED: ONDANSETRON PF 4 MG/2 ML VIAL. IV ONE (13:00)
[2018-06-27 13:19] LABS: BILIRUBIN,URINE SMALL (NEG); CLARITY,URINE CLEAR; COLOR,URINE AMBER; NITRITE,URINE NEGATIVE (NEG); PROTEIN,URINE NEGATIVE (NEG-TRACE); UROBILINOGEN,URINE 0.2 mg/dL (0.2 mg/dL)
[2018-06-27 13:28] LABS: BASO # 0.1 x10^3/uL (0.0-0.2); BASO % 1 % (0-3); EOS # 0.5 x10^3/uL (0.0-0.7); EOS % 5 % (0-3); HEMOGLOBIN 13.8 g/dL (12.0-15.5); LYMPH # 2.4 x10^3/uL (1.0-4.8); LYMPH % 23 % (24-48); MEAN CORPUSCULAR HEMOGLOBIN 31 pg (25-35); MEAN CORPUSCULAR HGB CONC 35 g/dL (31-37); MEAN CORPUSCULAR VOLUME 90 fL (79-100); MONO # 0.9 x10^3/uL (0.0-1.1); MONO % 9 % (0-9); NEUT # 6.6 x10^3uL (1.8-7.7); NEUT % 63 % (31-73); PLATELET COUNT 227 x10^3/uL (140-400); RED BLOOD COUNT 4.44 x10^6/uL (3.50-5.40); RED CELL DISTRIBUTION WIDTH 13.3 % (11.5-14.5); WHITE BLOOD COUNT 10.6 x10^3/uL (4.0-11.0)
[2018-06-27 13:32] LABS: CREATININE 0.9 mg/dL (0.6-1.0); GFR 87.8; POTASSIUM 3.4 mmol/L (3.5-5.1)
[2018-06-27 13:39] LABS: ALBUMIN 3.9 g/dL (3.4-5.0); TOTAL BILIRUBIN 0.4 mg/dL (0.2-1.0); TOTAL PROTEIN 7.9 g/dL (6.4-8.2)
[2018-06-27 13:49] LABS: BACTERIA,URINE MODERATE /HPF (0-FEW); RBC,URINE 0 /HPF (0-2); SQUAMOUS EPITHELIAL CELL,UR MOD /LPF; WBC,URINE OCC /HPF (0-4); YEAST,URINE PRESENT /HPF
[2018-06-27] MEDS ORDERED: ONDA4TAB10 SL (14:48)
[2018-06-27] MEDS ORDERED: FLUC150T PO (14:52)
[2018-06-27 15:00] VITALS: BP 164/72
[2018-06-27 15:36] LABS: BARBITURATES NEG (NEG); BENZODIAZEPINES NEG (NEG); CANNABINOIDS NEG (NEG); COCAINE NEG (NEG); METHADONE NEG (NEG); OPIATES NEG (NEG); PHENCYCLIDINE NEG (NEG)
[2018-06-27 15:37] LABS: AMPHETAMINE/METHAMPHETAMINE NEG (NEG)
== END 2018-06-27 15:11 | disposition home or self-care (01) ==
LOC: ER 12:28
DX: T62.8X1A Toxic effect of other specified noxious substances eaten as food, accidental (unintentional), initial encounter (principal); K52.1 Toxic gastroenteritis and colitis; R11.2 Nausea with vomiting, unspecified; R10.9 Unspecified abdominal pain; I10 Essential (primary) hypertension; J45.909 Unspecified asthma, uncomplicated; E10.9 Type 1 diabetes mellitus without complications; E66.9 Obesity, unspecified; Z68.39 Body mass index [BMI] 39.0-39.9, adult; Z90.49 Acquired absence of other specified parts of digestive tract; Z98.890 Other specified postprocedural states; Z91.018 Allergy to other foods; Y92.89 Other specified places as the place of occurrence of the external cause
CPT/HCPCS: 36415; 80053; 80307; 81001; 81025; 83690; 85025; 87086; 96361; 96374; 96375; 99284; C9113; G0480; J2405; J3010; J7030; G0479

== ENCOUNTER 2018-06-30 05:35 | Emergency (ER) | payer OTHER, MEDICAID ==
[~2018-06-30] VITALS: Ht 165.1 cm; Wt 113.4 kg
[~2018-06-30 05:35] MED LIST changes: +FLUC150T PO
[2018-06-30] MEDS ORDERED: HYDR-971 PO (05:53)
[2018-06-30] MEDS ORDERED: PENI500T PO (05:53)
[2018-06-30] MEDS ORDERED: CHLO15MO2 PO (05:53)
--- NOTE | 2018-06-30 05:54 | PHYS DOC ---
Past Medical History Past Medical History: Asthma, Bronchitis, Diabetes-Type I, Hypertension Additional Past Medical Histor: OBESITY Past Surgical History: Cholecystectomy, , Other Additional Past Surgical Histo: D&C Smoking: Cigarettes Alcohol Use: None Drug Use: None Adult General Chief Complaint Chief Complaint: DENTAL PROBLEM HPI HPI 33-year-old female presents with report of left maxillary molar pain with radiation to left ear 2 days. Denies known trauma. Denies fever or chills. Denies . Reports pain worse with chewing. Reports hot and cold intolerance. Review of Systems Review of Systems Constitutional: Denies fever or chills [] Eyes: Denies change in visual acuity, redness, or eye pain [] HENT: Reports toothache and left ear pain Respiratory: Denies cough or shortness of breath [] Integument: Denies rash or skin lesions [] Neurologic: Denies headache, focal weakness or sensory changes [] Complete systems were reviewed and found to be within normal limits, except as documented in this note. Current Medications Current Medications Current Medications Medications (Trade) Dose Ordered Sig/Prem Start Time Stop Time Status Last Admin Dose Admin Bupivacaine HCl/ Epinephrine Bitart (Sensorcain-Mpf Epi 0.5%-1:[id number]) 30 ml 1X ONCE 06/30/18 06:00 06/30/18 06:01 06/30/18 05:57 30 ML Dexamethasone (Decadron) 10 mg 1X ONCE 06/30/18 06:00 06/30/18 06:01 06/30/18 05:57 10 MG Penicillin V Potassium (Veetid) 500 mg 1X ONCE 06/30/18 06:00 06/30/18 06:01 06/30/18 05:57 500 MG Allergies Allergies Allergies Coded Allergies Type Severity Reaction Last Updated Verified onion Allergy Intermediate Hives 07/25/17 Yes strawberry Allergy Intermediate SWELLS UP 08/25/15 Yes Physical Exam Physical Exam Constitutional: Well developed, well nourished, crying, non-toxic appearance. [] HENT: Normocephalic, atraumatic, left TM with some mild erythema, oropharynx moist, no oral exudates, nose normal. Tongue studs x 3, Left 2nd maxillary molar tender to palpation, no drainable fluctuance noted, poor dentition throughout with multiple dental caries Eyes: EOMI, conjunctiva normal, no discharge. [] Neck: Normal range of motion, no tenderness, supple, no meningeal signs] Lungs & Thorax: No respiratory distress Skin: Warm, dry, no erythema, no rash. [] Back: No tenderness, no CVA tenderness. [] Extremities: No tenderness, ROM intact, no edema. [] Neurologic: Alert and oriented X 3, normal motor function, normal sensory function, no focal deficits noted. [] Psychologic: Affect normal, judgement normal, mood normal. [] Current Patient Data Vital Signs Vital Signs Date Time Temp Pulse Resp B/P (MAP) Pulse Ox O2 Delivery O2 Flow Rate FiO2 06/30/18 05:46 98.2 77 18 180/90 (120) 99 Room Air 98.2 EKG EKG [] Radiology/Procedures Radiology/Procedures [] Course & Med Decision Making Course & Med Decision Making Patient presents with history of present illness and physical exam consistent for dentalgia. Dental block performed with an over improvement of symptoms. Antibiotics initiated. One-time dose of long-acting steroid also provided. Patient stable for discharge with outpatient follow-up with PCP/dentist. Discussed findings and plan with patient and family, who acknowledge understanding and agreement. Dragon Disclaimer Dragon Disclaimer This electronic medical record was generated, in whole or in part, using a voice recognition dictation system. Departure Departure Impression: Primary Impression: Dentalgia Disposition: 01 HOME, SELF-CARE Condition: STABLE Referrals: NO PCP (PCP) Patient Instructions: Toothache-Brief Scripts Hydrocodone/Apap 5-325 (NORCO 5-325 TABLET) 1 Each Tablet 1 TAB PO PRN Q6HRS PRN for PAIN, #6 TAB 0 Refills Prov: DAYA SHAH DO 06/30/18 Penicillin V Potassium (PENICILLIN V POTASSIUM) 500 Mg Tablet 1 TAB PO QID for 7 Days, #28 TAB Prov: DAYA SHAH DO 06/30/18 Chlorhexidine Gluconate (PERIDEX) 15 Ml Mouthwash 15 ML PO BID, #946 ML Prov: DAYA SHAH DO 06/30/18 Additional Procedures Progress Dental block: Verbal consent obtained from patient. Time out performed. Bupivacaine 0.5% with epinephrine utilized 4 mL's via superior-posterior nerve block with 25- gauge needle by ED physician. Patient tolerated procedure well and without difficulty. Patient with interval improvement of symptoms. No bleeding. DAYA SHAH DO Jun 30, 2018 05:53
[2018-06-30] MEDS ORDERED: PENICILLIN V K 250 MG TABLET. PO ONE (06:00)
[2018-06-30] MEDS ORDERED: BUPIVAC MPF-EPI 0.5%-1:200000 30 ML VIAL. INJ ONE (06:00)
[2018-06-30] MEDS ORDERED: DEXAMETHASONE 4 MG TABLET PO ONE (06:00)
== END 2018-06-30 06:10 | disposition home or self-care (01) ==
LOC: ER 05:35
DX: K08.89 Other specified disorders of teeth and supporting structures (principal); H92.02 Otalgia, left ear; E10.9 Type 1 diabetes mellitus without complications; I10 Essential (primary) hypertension; J45.909 Unspecified asthma, uncomplicated; F17.210 Nicotine dependence, cigarettes, uncomplicated; Z91.018 Allergy to other foods
CPT/HCPCS: 64400; 99284; J3490; J8540

== ENCOUNTER 2018-07-13 18:11 | Emergency (ER) | payer OTHER, MEDICAID ==
[~2018-07-13] VITALS: Ht 165.1 cm; Wt 114.8 kg
[~2018-07-13 18:11] MED LIST changes: +CHLO15MO2 PO; -METF10003 PO; +METF10007 PO; +PENI500T PO
[2018-07-13 18:58] VITALS: BP 148/73
--- NOTE | 2018-07-13 19:11 | PHYS DOC ---
Past Medical History Past Medical History: Asthma, Bronchitis, Diabetes-Type I, Hypertension Additional Past Medical Histor: OBESITY Past Surgical History: Cholecystectomy, , Other Additional Past Surgical Histo: D&C Alcohol Use: None Drug Use: None Adult General Chief Complaint Chief Complaint: UPPER EXTREMITY PAIN HPI HPI Patient is a 33 year old female with a history of hypertension, diabetes type 1 , who presents today complaining of tightness in the left humerus muscle that she noted this morning. Patient believes she got bit by an insect. Denies any anaphylactic-type reaction symptoms. She has not taken anything for her symptoms. She also would like to get a tetanus shot. Review of Systems Review of Systems Constitutional: Denies fever or chills [] Eyes: Denies change in visual acuity, redness, or eye pain [] HENT: Denies nasal congestion or sore throat [] Respiratory: Denies cough or shortness of breath [] Cardiovascular: No additional information not addressed in HPI [] GI: Denies abdominal pain, nausea, vomiting, bloody stools or diarrhea [] : Denies dysuria or hematuria [] Musculoskeletal: Denies back pain or joint pain [] Integument: Reports tetanus in the left humerus-possible insect bite Neurologic: Denies headache, focal weakness or sensory changes [] All other systems were reviewed and found to be within normal limits, except as documented in this note. Current Medications Current Medications Current Medications Medications (Trade) Dose Ordered Sig/Prem Start Time Stop Time Status Last Admin Dose Admin Diphtheria/ Tetanus/Acell Pertussis (Boostrix) 0.5 ml ONCE ONCE 07/13/18 19:15 07/13/18 19:16 DC 07/13/18 19:26 0.5 ML Allergies Allergies Allergies Coded Allergies Type Severity Reaction Last Updated Verified onion Allergy Intermediate Hives 07/25/17 Yes strawberry Allergy Intermediate SWELLS UP 08/25/15 Yes Physical Exam Physical Exam Constitutional: Well developed, well nourished, no acute distress, non-toxic appearance. [] HENT: Normocephalic, atraumatic, bilateral external ears normal, oropharynx moist, no oral exudates, nose normal. [] Eyes: PERRLA, EOMI, conjunctiva normal, no discharge. [] Neck: Normal range of motion, no tenderness, supple, no stridor. [] Cardiovascular:Heart rate regular rhythm, no murmur [] Lungs & Thorax: Bilateral breath sounds clear to auscultation [] Abdomen: Bowel sounds normal, soft, no tenderness, no masses, no pulsatile masses. [] Skin: Warm, dry, left humerus with no obvious deformity. Patient has a tattoo over the humeral region, had to evaluate the area to see if she has an actual insect bite. There is no warmth or tenderness to the region. Patient is - Italian. Some of the tattoos are red ink and some are black ink. She states the tattoos are been there for years. Neurovascular exam to the left upper extremity is normal. Back: No tenderness, no CVA tenderness. [] Extremities: No tenderness, no cyanosis, no clubbing, ROM intact, no edema. [] Neurologic: Alert and oriented X 3, normal motor function, normal sensory function, no focal deficits noted. [] Psychologic: Affect normal, judgement normal, mood normal. [] Current Patient Data Vital Signs Vital Signs Date Time Temp Pulse Resp B/P (MAP) Pulse Ox O2 Delivery O2 Flow Rate FiO2 07/13/18 18:58 98.2 68 18 148/73 (98) 98 Room Air 98.2 EKG EKG [] Radiology/Procedures Radiology/Procedures [] Course & Med Decision Making Course & Med Decision Making Pertinent Labs and Imaging studies reviewed. (See chart for details) This is a 33-year-old female patient who presents today complaining of left upper extremity/humerus tightness and believes she got bit by an insect. She does have a tattoo over the region hence very hard to examine but no obvious sign of infection. She was given tetanus in the ED. Given triamcinolone cream. Recommended Benadryl. Follow-up with primary care doctor in 1-2 weeks as needed. Provided return precautions and discharged in stable condition. Staff Physician Addendum: I was working in the ER during the course of this patient's visit. I was available for consultation as needed, but I was not directly involved in the care of this patient. Dragon Disclaimer Dragon Disclaimer This electronic medical record was generated, in whole or in part, using a voice recognition dictation system. Departure Departure Impression: Primary Impression: Insect bite Disposition: HOME, SELF-CARE Condition: STABLE Referrals: NO PCP (PCP) follow up with your doctor in 1 week Patient Instructions: Insect Bite, [id number] Additional Instructions: You were evaluted in the ER for a possible insect bite to the left upper extremity. Use the prescribed cream as ordered. Take Benadryl every 6 hours as needed. Follow-up with your doctor in 1-2 weeks. Come back to the emergency room at any point symptoms worsen. Scripts Cyclobenzaprine Hcl (CYCLOBENZAPRINE HCL) 10 Mg Tablet 1 TAB PO TID, #30 TAB Prov: DARLENE TUCKER APRN 07/13/18 Diphenhydramine Hcl (BENADRYL) 25 Mg Capsule 1 CAP PO Q6HRS, #30 CAP 1 Refill Prov: DARLENE TUCKER APRN 07/13/18 Triamcinolone Acetonide (TRIAMCINOLONE ACETONIDE 0.1% OINT) 15 Gm Oint...g. 1 WILNER TP BID for WOUND CARE, #1 TUBE Prov: DARLENE TUCKER APRN 07/13/18 Problem Qualifiers Primary Impression: Insect bite Encounter type: initial encounter Qualified Codes: W57.XXXA - Bitten or stung by nonvenomous insect and other nonvenomous arthropods, initial encounter DARLENE TUCKER APRN Jul 13, 2018 19:11 RICARDO RYAN MD Jul 13, 2018 23:27
[2018-07-13] MEDS ORDERED: DIPH25CA58 PO (19:14)
[2018-07-13] MEDS ORDERED: TRIA15OI TP (19:14)
[2018-07-13] MEDS ORDERED: CYCL10TA2 PO (19:15)
[2018-07-13] MEDS ORDERED: DIPHTH,PERTUSS(ACELL),TET TOX 0.5 ML DISP.SYRIN. VAX IM ONE (19:15)
== END 2018-07-13 19:30 | disposition home or self-care (01) ==
LOC: ER 18:11
DX: S40.261A Insect bite (nonvenomous) of right shoulder, initial encounter (principal); I10 Essential (primary) hypertension; E10.8 Type 1 diabetes mellitus with unspecified complications; J45.909 Unspecified asthma, uncomplicated; Z90.49 Acquired absence of other specified parts of digestive tract; Z91.018 Allergy to other foods; W57.XXXA Bitten or stung by nonvenomous insect and other nonvenomous arthropods, initial encounter; Y93.89 Activity, other specified; Y92.89 Other specified places as the place of occurrence of the external cause; Y99.8 Other external cause status
CPT/HCPCS: 90471; 90715; 99283

== ENCOUNTER 2018-07-20 17:14 | Emergency (ER) | payer OTHER, MEDICAID ==
[~2018-07-20] VITALS: Ht 165.1 cm; Wt 113.4 kg
[~2018-07-20 17:14] MED LIST changes: +DIPH25CA58 PO; +TRIA15OI TP
[2018-07-20 18:42] VITALS: BP 150/81
[2018-07-20] MEDS ORDERED: PENI500T PO (18:56)
[2018-07-20] MEDS ORDERED: HYDR-2758 PO (18:56)
--- NOTE | 2018-07-20 18:56 | PHYS DOC ---
Past Medical History Past Medical History: Diabetes-Type II, High Cholesterol Additional Past Medical Histor: OBESITY Past Surgical History: Cholecystectomy, Additional Past Surgical Histo: D&C Alcohol Use: None Drug Use: None Adult General Chief Complaint Chief Complaint: DENTAL PROBLEM HPI HPI Patient is a 33 year old female who presents to the ER with complaints of lower left dental pain. She reports having a broken tooth in this area for several months. Pt states she was seen here about a month ago for the same problem. She has been unable to find a dentist that takes her insurance. However , she states that she has an appointment with one on Sunday next week. Pt states the pain began again this morning. She reports the pain as a 10 out of 10 on the pain scale. She has tried taking motrin and tylenol at home with no relief of her symptoms. She denies any fever, sore throat, difficulty swallowing , nausea, or vomiting. Review of Systems Review of Systems Constitutional: Denies fever or chills [] HENT: Denies nasal congestion or sore throat [] GI: Denies abdominal pain, nausea, or vomiting Integument: Denies rash or skin lesions [] Neurologic: Denies headache, focal weakness or sensory changes [] All other systems were reviewed and found to be within normal limits, except as documented in this note. Current Medications Current Medications Current Medications Medications (Trade) Dose Ordered Sig/Prem Start Time Stop Time Status Last Admin Dose Admin Acetaminophen/ Hydrocodone Bitart (Lortab 5/325) 1 tab 1X ONCE 07/20/18 19:15 07/20/18 19:15 DC 07/20/18 19:02 1 TAB Tramadol HCl (Ultram) 50 mg 1X ONCE 07/20/18 19:00 07/20/18 19:00 DC Allergies Allergies Allergies Coded Allergies Type Severity Reaction Last Updated Verified onion Allergy Intermediate Hives 07/25/17 Yes strawberry Allergy Intermediate SWELLS UP 08/25/15 Yes Physical Exam Physical Exam Constitutional: Well developed, well nourished, no acute distress, non-toxic appearance, obese. [] HENT: Normocephalic, atraumatic, bilateral external ears normal, oropharynx moist, no oral exudates, broken tooth in LLQ without evidence of a periapical abscess, nose normal. [] Eyes: normal Neck: Normal range of motion, supple, no stridor. [] Lungs & Thorax: Respirations even and unlabored Skin: Warm, dry, no erythema, no rash. [] Neurologic: Alert and oriented X 3, normal motor function, normal sensory function, no focal deficits noted. [] Psychologic: Affect normal, judgement normal, mood normal. [] Current Patient Data Vital Signs Vital Signs Date Time Temp Pulse Resp B/P (MAP) Pulse Ox O2 Delivery O2 Flow Rate FiO2 07/20/18 19:02 18 Room Air 07/20/18 18:42 98.4 65 150/81 (104) 100 98.4 EKG EKG [] Radiology/Procedures Radiology/Procedures [] Course & Med Decision Making Course & Med Decision Making Pertinent Labs and Imaging studies reviewed. (See chart for details) Dental pain, dental caries, prescriptions written for norco and penicillin VK. She was given one hydrocodone in the department, the order for a tramadol was cancelled. Patient verbalized an understanding of home care, medications, follow -up, and return to ED instructions and was in agreement with the plan of care. [] Dragon Disclaimer Dragon Disclaimer This electronic medical record was generated, in whole or in part, using a voice recognition dictation system. Departure Departure Impression: Primary Impression: Pain due to dental caries Additional Impression: Pain, dental Disposition: HOME, SELF-CARE Condition: STABLE Referrals: NO PCP (PCP) Patient Instructions: Dental Caries Additional Instructions: Fill prescriptions and use as directed. Follow up with your dentist on Sunday as planned. Return to the ER if your symptoms worsen. Scripts Hydrocodone Bit/Acetaminophen (HYDROCODONE-APAP 5-325 ) 1 Each Tablet 1 TAB PO PRN Q6HRS PRN for PAIN, #6 TAB 0 Refills Prov: CRISTA WATKINS APRN 07/20/18 Penicillin V Potassium (PENICILLIN V POTASSIUM) 500 Mg Tablet 1 TAB PO QID for 7 Days, #28 TAB Prov: CRISTA WATKINS MECHANICAL STRIPER 07/20/18 Problem Qualifiers CRISTA WATKINS APRN Jul 20, 2018 18:56
[2018-07-20] MEDS ORDERED: traMADol 50 MG TABLET PO ONE (19:00)
[2018-07-20] MEDS ORDERED: HYDROcodone/APAP 5/325MG 1 TAB TABLET PO ONE (19:15)
== END 2018-07-20 19:07 | disposition home or self-care (01) ==
LOC: ER 17:14
DX: K02.9 Dental caries, unspecified (principal); E78.00 Pure hypercholesterolemia, unspecified; E11.9 Type 2 diabetes mellitus without complications; Z91.018 Allergy to other foods
CPT/HCPCS: 99283

== ENCOUNTER 2018-07-29 20:24 | Emergency (ER) | payer OTHER, MEDICAID ==
[~2018-07-29] VITALS: Ht 165.1 cm; Wt 108.9 kg
[~2018-07-29 20:24] MED LIST changes: +HYDR-2758 PO
[2018-07-29 21:46] VITALS: BP 174/87
[2018-07-29] MEDS ORDERED: HYDROcodone/APAP 5/325MG 1 TAB TABLET PO ONE (22:30)
--- NOTE | 2018-07-29 22:30 | PHYS DOC ---
Past Medical History Past Medical History: Asthma Additional Past Medical Histor: OBESITY Past Surgical History: Cholecystectomy, Additional Past Surgical Histo: D&C Alcohol Use: None Drug Use: None Adult General Chief Complaint Chief Complaint: ANKLE PROBLEM HPI HPI Patient is a 33 year old female who presents to the emergency room today with complaints of lateral right ankle pain and swelling after twisting her ankle while playing with her children yesterday. Patient states that her ankle rolled inward. She has tried ice and elevation at home with no relief of the pain. Currently she reports the pain is a 10 out of 10 on the pain scale. She reports a history of asthma, bronchitis, and type 2 diabetes. States that her only allergies are strong and onions. Pt states the pain increases with weightbearing and she is unable to tolerate standing or walking. She denies any numbness or tingling of her RLE. Review of Systems Review of Systems Constitutional: Denies fever or chills [] Musculoskeletal: Reports lateral right ankle pain and swelling after twisting ankle yesterday Integument: Denies rash or skin lesions [] Neurologic: Denies headache, focal weakness or sensory changes [] All other systems were reviewed and found to be within normal limits, except as documented in this note. Current Medications Current Medications Current Medications Medications (Trade) Dose Ordered Sig/Prem Start Time Stop Time Status Last Admin Dose Admin Acetaminophen/ Hydrocodone Bitart (Lortab 5/325) 1 tab 1X ONCE 07/29/18 22:30 07/29/18 22:31 DC 07/29/18 22:20 1 TAB Allergies Allergies Allergies Coded Allergies Type Severity Reaction Last Updated Verified onion Allergy Intermediate Hives 07/25/17 Yes strawberry Allergy Intermediate SWELLS UP 08/25/15 Yes Physical Exam Physical Exam Constitutional: Well developed, well nourished, no acute distress, non-toxic appearance, obese. [] HENT: Normocephalic, atraumatic, bilateral external ears normal, nose normal. [] Eyes: PERRLA, conjunctiva normal, no discharge. [] Skin: Warm, dry, no erythema, no rash. [] Extremities: R lateral ankle tenderness with 1+ edema, no bruising; no cyanosis , no clubbing, Neurologic: Alert and oriented X 3, normal motor function, normal sensory function, no focal deficits noted. [] Psychologic: Affect normal, judgement normal, mood normal. [] Current Patient Data Vital Signs Vital Signs Date Time Temp Pulse Resp B/P (MAP) Pulse Ox O2 Delivery O2 Flow Rate FiO2 07/29/18 22:20 16 99 Room Air 07/29/18 21:46 98.4 74 174/87 (116) 98.4 EKG EKG [] Radiology/Procedures Radiology/Procedures x-ray of right ankle negative for acute fracture or dislocation, read by Dr. De La Torre [] Course & Med Decision Making Course & Med Decision Making Pertinent Labs and Imaging studies reviewed. (See chart for details) Right ankle sprain. Patient was given one Lortab in the department. An Ernst wrap and ankle air splint were applied. Patient was given crutches with crutch gait instruction. Prescription for naproxen 500 twice a day 10 days was written. Follow-up with primary care doctor if symptoms worsen or persist, may also follow-up with Dr. Miguel. [] Dragon Disclaimer Dragon Disclaimer This electronic medical record was generated, in whole or in part, using a voice recognition dictation system. Departure Departure Impression: Primary Impression: Right ankle sprain Disposition: HOME, SELF-CARE Condition: STABLE Referrals: NO PCP (PCP) BLAKE MIGUEL MD Patient Instructions: Ankle Sprain, [id number] Additional Instructions: Fill prescription(s) and use as directed. Recommend application of ice, elevation, and rest of affected extremity. Wear the splint that was placed until follow up appointment. Return to the ER if your symptoms worsen. Scripts Naproxen (NAPROXEN) 500 Mg Tablet 1 TAB PO BID for 10 Days, #20 TAB 0 Refills Prov: CRISTA WATKINS FUNDER 07/29/18 Problem Qualifiers Primary Impression: Right ankle sprain Encounter type: initial encounter Involved ligament of ankle: unspecified ligament Qualified Codes: S93.401A - Sprain of unspecified ligament of right ankle, initial encounter CRISTA WATKINS FUNDER Jul 29, 2018 22:30
[2018-07-29] MEDS ORDERED: NAPR-514 PO (22:59)
--- NOTE | 2018-07-29 23:19 | RAD ---
Three-view right ankle radiographs 07/29/2018 CLINICAL HISTORY: Right ankle pain and swelling for 2 days after recent injury. AP, lateral and oblique digital radiographs of the right ankle were obtained. The right ankle mortise is intact. No fracture or dislocation of the right ankle is seen. IMPRESSION: No fracture or dislocation of the right ankle is seen. Electronically signed by: Idris Huddleston MD (07/29/2018 11:15 PM) [facility]
== END 2018-07-29 23:32 | disposition home or self-care (01) ==
LOC: ER 20:24
DX: S93.401A Sprain of unspecified ligament of right ankle, initial encounter (principal); J45.909 Unspecified asthma, uncomplicated; E66.9 Obesity, unspecified; Z68.33 Body mass index [BMI] 33.0-33.9, adult; Z91.018 Allergy to other foods; X50.1XXA Overexertion from prolonged static or awkward postures, initial encounter; Y93.89 Activity, other specified; Y92.89 Other specified places as the place of occurrence of the external cause; Y99.8 Other external cause status
CPT/HCPCS: 73610; 99284

== ENCOUNTER 2018-09-05 17:52 | Emergency (ER) | payer OTHER, MEDICAID ==
[~2018-09-05] VITALS: Ht 165.1 cm; Wt 108.9 kg
[2018-09-05 18:28] VITALS: BP 159/107
[2018-09-05] MEDS ORDERED: AMOX1TAB61 PO (18:38)
--- NOTE | 2018-09-05 18:38 | PHYS DOC ---
Past Medical History Past Medical History: Asthma, Diabetes-Type II Additional Past Medical Histor: OBESITY Past Surgical History: Cholecystectomy, Additional Past Surgical Histo: D&C Alcohol Use: None Drug Use: None Adult General Chief Complaint Chief Complaint: COUGH HPI HPI 33-year-old female presents for evaluation of sinus congestion and pressure, nasal congestion, productive cough for one week. Review of Systems Review of Systems Eyes: Denies change in visual acuity, redness, or eye pain [] HENT: Denies sore throat [] : Denies dysuria or hematuria [] Musculoskeletal: Denies back pain or joint pain [] Integument: Denies rash or skin lesions [] Neurologic: Denies focal weakness or sensory changes [] Endocrine: Denies polyuria or polydipsia [] All other systems were reviewed and found to be within normal limits, except as documented in this note. Allergies Allergies Allergies Coded Allergies Type Severity Reaction Last Updated Verified onion Allergy Intermediate Hives 07/25/17 Yes strawberry Allergy Intermediate SWELLS UP 08/25/15 Yes Physical Exam Physical Exam Constitutional: Well developed, well nourished, no acute distress, non-toxic appearance. [] HENT: Normocephalic, atraumatic, bilateral external ears normal, oropharynx moist, no oral exudates, TURBINATES SWOLLEN, PURULENT NASAL DISCHARGE[] Eyes: PERRLA, EOMI, conjunctiva normal, no discharge. [] Neck: Normal range of motion, no tenderness, supple, no stridor. [] Cardiovascular:Heart rate regular rhythm, no murmur [] Lungs & Thorax: Bilateral breath sounds clear to auscultation [] Skin: Warm, dry, no erythema, no rash. [] Neurologic: Alert and oriented X 3, normal motor function, normal sensory function, no focal deficits noted. [] Psychologic: Affect normal, judgement normal, mood normal. [] Current Patient Data Vital Signs Vital Signs Date Time Temp Pulse Resp B/P (MAP) Pulse Ox O2 Delivery O2 Flow Rate FiO2 09/05/18 18:28 98.4 77 20 159/107 (124) 98 Room Air 98.4 EKG EKG [] Radiology/Procedures Radiology/Procedures [] Course & Med Decision Making Course & Med Decision Making Pertinent Labs and Imaging studies reviewed. (See chart for details) [She was treated with antibiotics for a sinus infection that is been ongoing for 1 week. Recommend follow-up with primary care doctor, return to ER for new or worsening symptoms.] Dragon Disclaimer Dragon Disclaimer This electronic medical record was generated, in whole or in part, using a voice recognition dictation system. Departure Departure Impression: Primary Impression: Sinusitis Disposition: HOME, SELF-CARE Condition: STABLE Referrals: NO PCP (PCP) Patient Instructions: Sinusitis, [id number] Scripts Amoxicillin/Potassium Clav (AUGMENTIN 875-125 TABLET) 1 Each Tablet 1 TAB PO BID, #20 TAB Prov: AMAURY ACUNA APRN 09/05/18 AMAURY ACUNA APRN Sep 05, 2018 18:38
[2018-09-06] MEDS ORDERED: METR500T PO (04:35)
== END 2018-09-05 18:43 | disposition home or self-care (01) ==
LOC: ER 17:52
DX: J32.9 Chronic sinusitis, unspecified (principal); E11.9 Type 2 diabetes mellitus without complications; J45.909 Unspecified asthma, uncomplicated; E66.9 Obesity, unspecified; Z68.39 Body mass index [BMI] 39.0-39.9, adult; Z91.018 Allergy to other foods
CPT/HCPCS: 99283

== ENCOUNTER 2018-09-06 00:23 | Emergency (ER) | payer OTHER, MEDICAID ==
[~2018-09-06] VITALS: Ht 165.1 cm; Wt 108.9 kg
[~2018-09-06 00:23] MED LIST changes: +AMOX1TAB61 PO
[2018-09-06 00:44] VITALS: BP 159/107
--- NOTE | 2018-09-06 02:53 | PHYS DOC ---
Past Medical History Past Medical History: Asthma, Diabetes-Type II Additional Past Medical Histor: OBESITY Past Surgical History: No Surgical History, Cholecystectomy, Additional Past Surgical Histo: D&C Alcohol Use: None Drug Use: None Adult General Chief Complaint Chief Complaint: SEXUALLY TRANSMITTED DISEASE HPI HPI Patient is a 33-year-old female presents to the emergency department for evaluation. She states another female that she "used to mess around with an "just told her that she was diagnosed with herpes. The patient is requesting to be checked for STDs. She is otherwise asymptomatic. She has no vulvar or vaginal pain, or vaginal discharge. She has not had any fevers, denies any dysuria. There are no alleviating or exacerbating factors to her symptoms. Review of Systems Review of Systems Constitutional: Denies fever or chills [] : Denies dysuria or hematuria . Denies pelvic pain. Denies possibility of , patient is lesbian.[] Allergies Allergies Allergies Coded Allergies Type Severity Reaction Last Updated Verified onion Allergy Intermediate Hives 07/25/17 Yes strawberry Allergy Intermediate SWELLS UP 08/25/15 Yes Physical Exam Physical Exam PHYSICAL EXAM: CONSTITUTIONAL: Well developed, well nourished HEAD: normocephalic, atraumatic EENT: PERRL, EOMI. Conjunctivae normal color, sclerae non-icteric; moist mucous membranes. NECK: Supple, non-tender; no meningismus. LUNGS: Lungs CTA, breathing even and unlabored. Normal air movement. HEART: Regular rate and rhythm, no murmur CHEST: No deformity; non-tender ABDOMEN: The abdomen is soft, and non-tender, no masses or bruits. EXTREM: Normal ROM; SKIN: No rash; no diaphoresis NEURO: Alert; normal speech and cognition; PELVIC EXAM: Normal external genitalia. There are no vulvar lesions visualized. There is a trace amount of vaginal blood, without any other vaginal discharge. Exam was performed in the presence of LIN Negron nurse. Current Patient Data Vital Signs Vital Signs Date Time Temp Pulse Resp B/P (MAP) Pulse Ox O2 Delivery O2 Flow Rate FiO2 09/06/18 00:44 98.2 86 159/107 (124) 99 Room Air 98.2 Lab Values Microbiology 09/06/18 Wet Prep - Final, Complete EKG EKG [] Radiology/Procedures Radiology/Procedures [] Course & Med Decision Making Course & Med Decision Making Pertinent Labs and Imaging studies reviewed. (See chart for details) [WET PREP Final YEAST NONE SEEN TRICHOMONAS PRESENT CLUE CELLS NONE SEEN ALTERED WENCESLAO ALTERED WENCESLAO PRESENT SUGGESTIVE OF BACTERIAL VAGINOSIS WBCS FEW RBCS MODERATE SQUAMOUS EPS MODERATE] 4:35 AM: The patient's condition remained stable. She showed me a copy of the text messages she received from her friend, and it appears that this other person had a panel of hepatitis testing done, not herpes testing, and all the tests were normal. I discussed current testicles with patient need for follow- up and return precautions. Dragon Disclaimer Dragon Disclaimer This electronic medical record was generated, in whole or in part, using a voice recognition dictation system. Departure Departure Impression: Primary Impression: Bacterial vaginosis Disposition: 01 HOME, SELF-CARE Condition: STABLE Referrals: NO PCP (PCP) VALDEMAR REYES MD Patient Instructions: Bacterial Vaginosis Scripts Metronidazole (FLAGYL) 500 Mg Tablet 1 TAB PO BID, #14 TAB Prov: LISA LARA MD 09/06/18 LISA LARA MD Sep 06, 2018 02:53
[2018-09-06] MEDS ORDERED: METR500T PO (04:35)
[2018-09-08 18:08] LABS: HERPES SIMPLEX TYPE 1 Negative (Negative); HERPES SIMPLEX TYPE 2 Negative (Negative)
[2018-09-09 15:29] LABS: GC PROBE Negative (Negative)
== END 2018-09-06 04:45 | disposition home or self-care (01) ==
LOC: ER 00:23
DX: N76.0 Acute vaginitis (principal); B96.89 Other specified bacterial agents as the cause of diseases classified elsewhere; E11.9 Type 2 diabetes mellitus without complications; J45.909 Unspecified asthma, uncomplicated; E66.9 Obesity, unspecified; Z68.39 Body mass index [BMI] 39.0-39.9, adult; Z90.49 Acquired absence of other specified parts of digestive tract
CPT/HCPCS: 87529; 99284; Q0111; 87491; 87591

== ENCOUNTER 2018-09-11 22:04 | Emergency (ER) | payer OTHER, MEDICAID ==
[~2018-09-11] VITALS: Ht 165.1 cm; Wt 108.9 kg
[~2018-09-11 22:04] MED LIST changes: +METR500T PO
[2018-09-11 22:41] VITALS: BP 180/117
[2018-09-11] MEDS ORDERED: DEXAMETHASONE SOD PHOS 4 MG/ML VIAL IM ONE (23:30)
[2018-09-11] MEDS ORDERED: PRED2.5T PO (23:32)
--- NOTE | 2018-09-12 03:43 | PHYS DOC ---
Past Medical History Past Medical History: Asthma, Diabetes-Type II Additional Past Medical Histor: OBESITY Past Surgical History: No Surgical History, Cholecystectomy, Additional Past Surgical Histo: D&C Alcohol Use: None Drug Use: None Adult General Chief Complaint Chief Complaint: SKIN RASH/ABSCESS [facility] HPI Patient is a 33 year old female who presents with rash on back. Patient developed pruritic papular rash over the upper portion of her back in the last 48 hours. Patient does not have allergies that she knows of. She has had no additional symptoms. She was seen in this emergency department with the last week when she was diagnosed with bacterial vaginitis and discharged home with Flagyl. Review of medical record reveals that the patient did not have any vaginal complaints and that the diagnosis was incidental. She has no respiratory involvement. She has no swelling of the mouth, tongue, or oral pharynx. No prior history of similar symptoms. Review of Systems Review of Systems Constitutional: Denies fever or chills Eyes: Denies change in visual acuity, redness, or eye pain HENT: Denies nasal congestion or sore throat Respiratory: Denies cough or shortness of breath Cardiovascular: No additional information not addressed in HPI GI: Denies abdominal pain, nausea : Denies dysuria Musculoskeletal: Denies back pain or joint pain Integument: as above All other systems were reviewed and found to be within normal limits, except as documented in this note. Current Medications Current Medications Current Medications Medications (Trade) Dose Ordered Sig/Prem Start Time Stop Time Status Last Admin Dose Admin Dexamethasone Sodium Phosphate (Decadron) 8 mg 1X ONCE 09/11/18 23:30 09/11/18 23:31 DC 09/11/18 23:39 8 MG Allergies Allergies Allergies Coded Allergies Type Severity Reaction Last Updated Verified onion Allergy Intermediate Hives 07/25/17 Yes strawberry Allergy Intermediate SWELLS UP 08/25/15 Yes Physical Exam Physical Exam Constitutional: Well developed, well nourished, no acute distress HENT: Normocephalic, atraumatic, bilateral external ears normal, oropharynx moist Eyes: PERRLA, EOMI, conjunctiva normal, no discharge Skin: Warm, dry, no erythema, rash over the upper portion of the back, 2-3 mm papules, non-erythematous, many are excoriated. occur discretely, Extremities: No hives, no edema Neurologic: Alert and oriented X 3 Psychologic: Affect normal Current Patient Data Vital Signs Vital Signs Date Time Temp Pulse Resp B/P (MAP) Pulse Ox O2 Delivery O2 Flow Rate FiO2 09/11/18 22:41 98.6 83 18 180/117 (138) 100 Room Air 98.6 EKG EKG [] Radiology/Procedures Radiology/Procedures [] Course & Med Decision Making Course & Med Decision Making Pertinent Labs and Imaging studies reviewed. (See chart for details) is evaluated for a rash over the back that seems most consistent with some allergy. It does not appear to be a drug eruption. Patient denies vaginal symptoms. She was treated for bacterial vaginosis. She is completed half of the treatment. She is advised she can stop taking the Flagyl at this time. In the emergency department, she was given a dose of Decadron and Benadryl. She was discharged home on a prednisone taper. Advised to come back to the ER for any new or worsening symptoms or follow up with her primary care doctor. Dragon Disclaimer Dragon Disclaimer This electronic medical record was generated, in whole or in part, using a voice recognition dictation system. Departure Departure Impression: Primary Impression: Contact dermatitis Disposition: HOME, SELF-CARE Condition: GOOD Patient Instructions: Contact Dermatitis, [id number] Additional Instructions: Stop taking the antibiotic. You no longer need it. Take the prescribed medications as directed to make sure your allergic reaction does not worsen. Scripts Prednisone (PREDNISONE) 2.5 Mg Tablet 1 TAB PO UD, #21 TAB 3 Refills Take 3 tablets by mouth for 3 days, then take 2 tablets by mouth for 3 days, then take 1 tablet by mouth for 2 days, then take 1/2 tablet daily until dinah Prov: GERRI COLES DO 09/11/18 GERRI COLES DO Sep 12, 2018 03:43
== END 2018-09-11 23:41 | disposition home or self-care (01) ==
LOC: ER 22:04
DX: L25.9 Unspecified contact dermatitis, unspecified cause (principal); J45.909 Unspecified asthma, uncomplicated; E11.9 Type 2 diabetes mellitus without complications; E66.9 Obesity, unspecified; Z68.39 Body mass index [BMI] 39.0-39.9, adult; Z90.49 Acquired absence of other specified parts of digestive tract; Z98.890 Other specified postprocedural states; Z91.018 Allergy to other foods
CPT/HCPCS: 96372; 99283; J1100

== ENCOUNTER 2018-10-31 16:52 | Emergency (ER) | payer OTHER, MEDICAID ==
[~2018-10-31] VITALS: Ht 165.1 cm; Wt 108.9 kg
[~2018-10-31 16:52] MED LIST changes: +ALBU2.5V8 IH; +ALBU2.5V8 INH; -HYDR-2758 PO; +HYDR-2761 PO; +HYDR-3164 PO; -HYDR-971 PO; +PRED2.5T PO; -PROAIR HFA8.5 GM INH; -PROVENTIL HFA6.7 GM IH
[2018-10-31 17:58] VITALS: BP 148/70
[2018-10-31] MEDS ORDERED: ORPHENADRINE CITRATE 60 MG/2 ML VIAL. IM ONE (18:15)
[2018-10-31] MEDS ORDERED: HYDROcodone/APAP 5/325MG 1 TAB TABLET PO ONE (18:15)
[2018-10-31] MEDS ORDERED: NAPR-514 PO (19:26)
[2018-10-31] MEDS ORDERED: ORPH100T PO (19:26)
--- NOTE | 2018-10-31 19:26 | PHYS DOC ---
Past Medical History Past Medical History: Asthma, Diabetes-Type II Additional Past Medical Histor: OBESITY Past Surgical History: No Surgical History, Cholecystectomy, Additional Past Surgical Histo: D&C Alcohol Use: None Drug Use: None Adult General Chief Complaint Chief Complaint: SHOULDER INJURY HPI HPI Patient is a 33 year old AA female who presents to the ER today with complaints of left shoulder pain for the last 4 days. She denies any cardiac history, hypertension, chest pain, or shortness of breath. Pt reports a hx of L shoulder pain, she has been lifting heavy items at work recently and states she is unable to raise her arm past 90 degrees anterior or laterally. Pt denies any numbness, or tingling of the extremity. She states the pain shoots from her shoulder into her arm with movement. Pt denies any recent injury or trauma. Review of Systems Review of Systems Constitutional: Denies fever or chills [] Musculoskeletal: See HPI Integument: Denies rash or skin lesions [] Neurologic: Denies headache, focal weakness or sensory changes [] Current Medications Current Medications Current Medications Medications (Trade) Dose Ordered Sig/Prem Start Time Stop Time Status Last Admin Dose Admin Acetaminophen/ Hydrocodone Bitart (Lortab 5/325) 1 tab 1X ONCE 10/31/18 18:15 10/31/18 18:16 DC 10/31/18 18:30 1 TAB Orphenadrine Citrate (Norflex) 60 mg 1X ONCE 10/31/18 18:15 10/31/18 18:16 DC 10/31/18 18:29 60 MG Allergies Allergies Allergies Coded Allergies Type Severity Reaction Last Updated Verified onion Allergy Intermediate Hives 07/25/17 Yes strawberry Allergy Intermediate SWELLS UP 08/25/15 Yes Physical Exam Physical Exam Constitutional: Well developed, well nourished, tearful, non-toxic appearance, obese. [] HENT: Normocephalic, atraumatic, bilateral external ears normal, nose normal. [] Eyes:conjunctiva normal, no discharge. [] Neck: Normal range of motion, no tenderness, supple, no stridor. [] Skin: Warm, dry, no erythema, no rash. [] Extremities: L AC joint tenderness, no cyanosis, no clubbing, L shoulder ROM limited due to pain pt only able to raise arm to 90 degrees anteriorly and laterally, no edema. [] Neurologic: Alert and oriented X 3, normal motor function, normal sensory function, no focal deficits noted. [] Psychologic: Affect normal, judgement normal, mood normal. [] Current Patient Data Vital Signs Vital Signs Date Time Temp Pulse Resp B/P (MAP) Pulse Ox O2 Delivery O2 Flow Rate FiO2 10/31/18 18:30 16 99 Room Air 10/31/18 17:58 98.0 70 148/70 (96) 98.0 EKG EKG [] Radiology/Procedures Radiology/Procedures PROCEDURE: SHOULDER 2+V LEFT EXAM: 3 views left shoulder DATE: 10/31/2018 6:07 PM INDICATION: ER PATIENT. ATRAUMATIC SHOULDER PAIN. NKI. ANTERIOR SHULDER JOINT PAIN RADIATING DOWN LEFT ARM WITH ASSOCIATIED UPPER ARM SWELLING COMPARISON: 11/28/2015 FINDINGS: No evidence of acute fracture or dislocation. AC joint is congruent. Humeral head is not high riding. No evidence of acute fracture or dislocation. IMPRESSION: No evidence of acute fracture or dislocation. Joint spaces are preserved without significant degenerative/proliferative change.[] Course & Med Decision Making Course & Med Decision Making Pertinent Labs and Imaging studies reviewed. (See chart for details) []Pt was given 60 mg of IM norflex and 1 PO hydrocodone in the ER reported reduced pain after medication. Xray negative for acute dislocation, fracture, or AC separation Dragon Disclaimer Dragon Disclaimer This electronic medical record was generated, in whole or in part, using a voice recognition dictation system. Departure Departure Impression: Primary Impression: Left shoulder pain Additional Impression: Left shoulder strain Disposition: 01 HOME, SELF-CARE Condition: STABLE Referrals: NO PCP (PCP) BLAKE MIGUEL MD Patient Instructions: Shoulder Pain, [id number] Additional Instructions: Fill prescription and use as directed. Follow-up with Dr. Miguel for further evaluation. Activity as tolerated. Return to the ER symptoms worsen. Scripts Orphenadrine Citrate (ORPHENADRINE CITRATE) 100 Mg Tablet.er 100 MG PO BID PRN for PAIN for 10 Days, #20 TAB.SR 0 Refills Prov: CRISTA WATKINS MANAGER FORMS 10/31/18 Naproxen (NAPROXEN) 500 Mg Tablet 1 TAB PO BID for 10 Days, #20 TAB 0 Refills Prov: CRISTA WATKINS MANAGER FORMS 10/31/18 Problem Qualifiers Primary Impression: Left shoulder pain Chronicity: acute Qualified Codes: M25.512 - Pain in left shoulder Additional Impression: Left shoulder strain Encounter type: initial encounter Qualified Codes: S46.912A - Strain of unspecified muscle, fascia and tendon at shoulder and upper arm level, left arm , initial encounter CRISTA WATKINS APRN Oct 31, 2018 19:26
--- NOTE | 2018-11-01 07:46 | RAD ---
EXAM: 3 views left shoulder DATE: 10/31/2018 6:07 PM INDICATION: ER PATIENT. ATRAUMATIC SHOULDER PAIN. NKI. ANTERIOR SHULDER JOINT PAIN RADIATING DOWN LEFT ARM WITH ASSOCIATIED UPPER ARM SWELLING COMPARISON: 11/28/2015 FINDINGS: No evidence of acute fracture or dislocation. AC joint is congruent. Humeral head is not high riding. No evidence of acute fracture or dislocation. IMPRESSION: No evidence of acute fracture or dislocation. Joint spaces are preserved without significant degenerative/proliferative change. Electronically signed by: Moy Gannon MD (11/01/2018 7:42 AM) [facility]
== END 2018-10-31 19:40 | disposition home or self-care (01) ==
LOC: ER 16:52
DX: S46.912A Strain of unspecified muscle, fascia and tendon at shoulder and upper arm level, left arm, initial encounter (principal); I10 Essential (primary) hypertension; Z91.018 Allergy to other foods; E11.9 Type 2 diabetes mellitus without complications; J45.909 Unspecified asthma, uncomplicated; E66.9 Obesity, unspecified; Z68.39 Body mass index [BMI] 39.0-39.9, adult; X50.0XXA Overexertion from strenuous movement or load, initial encounter; X50.9XXA Other and unspecified overexertion or strenuous movements or postures, initial encounter; Y93.89 Activity, other specified; Y92.69 Other specified industrial and construction area as the place of occurrence of the external cause; Y99.0 Civilian activity done for income or pay
CPT/HCPCS: 73030; 96372; 99283; J2360

== ENCOUNTER 2018-11-25 02:58 | Emergency (ER) | payer OTHER, MEDICAID ==
[~2018-11-25] VITALS: Ht 165.1 cm; Wt 117.9 kg
[~2018-11-25 02:58] MED LIST changes: +ORPH100T PO
[2018-11-25] MEDS ORDERED: IV NORMAL SALINE 1000ML BAG 1,000 ML IV SCH (03:30)
[2018-11-25 03:42] LABS: BASO # 0.1 x10^3/uL (0.0-0.2); BASO % 1 % (0-3); EOS # 0.3 x10^3/uL (0.0-0.7); EOS % 3 % (0-3); HEMOGLOBIN 14.1 g/dL (12.0-15.5); LYMPH # 2.3 x10^3/uL (1.0-4.8); LYMPH % 17 % (24-48); MEAN CORPUSCULAR HEMOGLOBIN 31 pg (25-35); MEAN CORPUSCULAR HGB CONC 34 g/dL (31-37); MEAN CORPUSCULAR VOLUME 90 fL (79-100); MONO # 0.8 x10^3/uL (0.0-1.1); MONO % 6 % (0-9); NEUT # 9.7 x10^3uL (1.8-7.7); NEUT % 73 % (31-73); PLATELET COUNT 221 x10^3/uL (140-400); RED BLOOD COUNT 4.56 x10^6/uL (3.50-5.40); RED CELL DISTRIBUTION WIDTH 13.3 % (11.5-14.5); WHITE BLOOD COUNT 13.3 x10^3/uL (4.0-11.0)
--- NOTE | 2018-11-25 03:48 | PHYS DOC ---
Past Medical History Past Medical History: Anxiety, Asthma, Bronchitis, Diabetes-Type II Additional Past Medical Histor: OBESITY, LUPUS Past Surgical History: Cholecystectomy, Additional Past Surgical Histo: D&C, X2 Alcohol Use: None Drug Use: None Adult General Chief Complaint Chief Complaint: CHEST PAIN HPI HPI Patient is a 33-year-old female who presents with complaint of chest tightness and intermittent sharp pains in her chest that started yesterday at about 4 PM immediately after having an argument with a family member. Patient states that symptoms have continued since onset. Patient does admit to feelings of anxiety and is unsure whether this is just a panic attack. She is tearful on exam. She denies any nausea, vomiting or diaphoresis. She rates pain as being moderate. She does indicate the symptoms are worsened with deep breathing. Patient also indicates that she has had a productive cough of yellow sputum for the last few days. Review of Systems Review of Systems Constitutional: Denies fever or chills [] Respiratory: Denies cough or shortness of breath [] Cardiovascular: No additional information not addressed in HPI [] GI: Denies abdominal pain, nausea, vomiting or diarrhea [] Integument: Denies rash or skin lesions [] All other systems were reviewed and found to be within normal limits, except as documented in this note. Current Medications Current Medications Current Medications Medications (Trade) Dose Ordered Sig/Prem Start Time Stop Time Status Last Admin Dose Admin Sodium Chloride 1,000 ml @ 1,000 mls/hr Q1H 11/25/18 03:30 11/25/18 04:29 DC 11/25/18 03:40 1,000 MLS/HR Allergies Allergies Allergies Coded Allergies Type Severity Reaction Last Updated Verified onion Allergy Intermediate Hives 07/25/17 Yes strawberry Allergy Intermediate SWELLS UP 08/25/15 Yes Physical Exam Physical Exam Constitutional: Well developed, well nourished, no acute distress, appears anxious. [] HENT: Normocephalic, atraumatic, bilateral external ears normal, oropharynx moist, no oral exudates, nose normal. [] Eyes: PERRLA, EOMI, conjunctiva normal, no discharge. [] Neck: Normal range of motion, no tenderness, supple, no stridor. [] Cardiovascular: Regular rate and rhythm [] Lungs & Thorax: Bilateral breath sounds clear to auscultation [] Abdomen: Bowel sounds normal, soft, no tenderness. [] Skin: Warm, dry, no erythema, no rash. [] Extremities: No tenderness, no cyanosis, no clubbing, ROM intact, no edema. [] Neurologic: Alert and oriented X 3, no focal deficits noted. [] Current Patient Data Vital Signs Vital Signs Date Time Temp Pulse Resp B/P (MAP) Pulse Ox O2 Delivery O2 Flow Rate FiO2 11/25/18 03:00 99.7 93 22 215/110 (145) 99 Room Air 99.7 Lab Values Laboratory Tests Test 11/25/18 03:30 White Blood Count 13.3 x10^3/uL (4.0-11.0) H Red Blood Count 4.56 x10^6/uL (3.50-5.40) Hemoglobin 14.1 g/dL (12.0-15.5) Hematocrit 41.0 % (36.0-47.0) Mean Corpuscular Volume 90 fL (79-100) Mean Corpuscular Hemoglobin 31 pg (25-35) Mean Corpuscular Hemoglobin Concent 34 g/dL (31-37) Red Cell Distribution Width 13.3 % (11.5-14.5) Platelet Count 221 x10^3/uL (140-400) Neutrophils (%) (Auto) 73 % (31-73) Lymphocytes (%) (Auto) 17 % (24-48) L Monocytes (%) (Auto) 6 % (0-9) Eosinophils (%) (Auto) 3 % (0-3) Basophils (%) (Auto) 1 % (0-3) Neutrophils # (Auto) 9.7 x10^3uL (1.8-7.7) H Lymphocytes # (Auto) 2.3 x10^3/uL (1.0-4.8) Monocytes # (Auto) 0.8 x10^3/uL (0.0-1.1) Eosinophils # (Auto) 0.3 x10^3/uL (0.0-0.7) Basophils # (Auto) 0.1 x10^3/uL (0.0-0.2) D-Dimer (Beata) < 0.27 ug/mlFEU Sodium Level 136 mmol/L (136-145) Potassium Level 3.5 mmol/L (3.5-5.1) Chloride Level 102 mmol/L (98-107) Carbon Dioxide Level 27 mmol/L (21-32) Anion Gap 7 (6-14) Blood Urea Nitrogen 12 mg/dL (7-20) Creatinine 0.8 mg/dL (0.6-1.0) Estimated GFR (Cockcroft-Gault) 100.6 BUN/Creatinine Ratio 15 (6-20) Glucose Level 127 mg/dL (70-99) H Calcium Level 9.7 mg/dL (8.5-10.1) Total Bilirubin 0.5 mg/dL (0.2-1.0) Aspartate Amino Transferase (AST) 26 U/L (15-37) Alanine Aminotransferase (ALT) 53 U/L (14-59) Alkaline Phosphatase 76 U/L (46-116) Troponin I Quantitative < 0.017 ng/mL (0.000-0.055) Total Protein 8.3 g/dL (6.4-8.2) H Albumin 3.8 g/dL (3.4-5.0) Albumin/Globulin Ratio 0.8 (1.0-1.7) L Laboratory Tests 11/25/18 03:30 Laboratory Tests 11/25/18 03:30 EKG EKG [] Interpretation Time: EKG demonstrates normal sinus rhythm with rate of 99. No ST segment abnormalities are noted. Radiology/Procedures Radiology/Procedures [] Impressions: Chest x-ray demonstrates no acute process. Course & Med Decision Making Course & Med Decision Making Pertinent Labs and Imaging studies reviewed. (See chart for details) [] Dragon Disclaimer Dragon Disclaimer This electronic medical record was generated, in whole or in part, using a voice recognition dictation system. Departure Departure Impression: Primary Impression: Chest wall pain Additional Impression: Acute bronchitis Disposition: 01 HOME, SELF-CARE Condition: STABLE Referrals: NO PCP (PCP) Patient Instructions: Acute Bronchitis, Chest Wall Pain, Gastroesophageal Reflux Disease, Adult Scripts Ranitidine Hcl (ZANTAC) 150 Mg Tablet 150 MG PO BID, #30 TAB Prov: PRACHI DAILEY Jr. DO 11/25/18 Azithromycin (ZITHROMAX) 250 Mg Tablet 1 PKG PO UD, #6 TAB Prov: PRACHI DAILEY Jr. DO 11/25/18 Problem Qualifiers Additional Impression: Acute bronchitis Bronchitis organism: unspecified organism Qualified Codes: J20.9 - Acute bronchitis, unspecified PRACHI DAILEY Jr. DO Nov 25, 2018 03:48
[2018-11-25 03:53] LABS: CALCIUM 9.7 mg/dL (8.5-10.1); CREATININE 0.8 mg/dL (0.6-1.0); GFR 100.6; POTASSIUM 3.5 mmol/L (3.5-5.1)
[2018-11-25 03:59] LABS: ALBUMIN 3.8 g/dL (3.4-5.0); ALBUMIN/GLOBULIN RATIO 0.8 (1.0-1.7); TOTAL BILIRUBIN 0.5 mg/dL (0.2-1.0); TOTAL PROTEIN 8.3 g/dL (6.4-8.2)
[2018-11-25 04:30] VITALS: BP 141/90
[2018-11-25] MEDS ORDERED: RANI-376 PO (04:46)
[2018-11-25] MEDS ORDERED: AZIT250T PO (04:46)
--- NOTE | 2018-11-25 06:37 | EKG ---
[facility] [address] [place] [address] Test Date: 2018-11-25 Test Time: 03:02:32 Pat Name: NICO KAPOOR Department: Room: Gender: F [employer] Installer: : 1985 Requested By: PRACHI DAILEY Order Number: [id number] Reading MD: Jj Eid MD Measurements Intervals [place] Rate: 99 P: 24 [place]: 150 QRS: 22 QRSD: 94 T: -1 QT: 332 QTc: 431 Interpretive Statements SINUS RHYTHM Electronically Signed On 11-26-2018 12:08:42 OR MANAGER by Jj Eid MD
--- NOTE | 2018-11-25 08:29 | RAD ---
Single view of the chest. 11/25/2018 3:56 AM Indication: CHEST PAIN Comparison: Chest radiograph December 26, 2017 Findings: There is no focal consolidation. There is no pleural effusion or pneumothorax. The cardiomediastinal silhouette and pulmonary vasculature are within normal limits. No acute osseous abnormalities are seen. Impression: No evidence of acute cardiopulmonary process. Electronically signed by: Alexis Gastelum MD (11/25/2018 8:25 AM) [id number]
== END 2018-11-25 04:58 | disposition home or self-care (01) ==
LOC: ER 02:58
DX: J20.9 Acute bronchitis, unspecified (principal); R07.89 Other chest pain; F41.9 Anxiety disorder, unspecified; J45.909 Unspecified asthma, uncomplicated; E11.9 Type 2 diabetes mellitus without complications; E66.9 Obesity, unspecified; Z68.41 Body mass index [BMI] 40.0-44.9, adult; Z91.018 Allergy to other foods
CPT/HCPCS: 36415; 71045; 80053; 84484; 85025; 85379; 93005; 99284; J7030

== ENCOUNTER 2019-01-16 10:57 | Emergency (ER) | payer OTHER, MEDICAID ==
[~2019-01-16] VITALS: Ht 165.1 cm; Wt 117.9 kg
[~2019-01-16 10:57] MED LIST changes: +AZIT250T PO; +RANI-376 PO
[2019-01-16 11:11] VITALS: BP 163/85
[2019-01-16] MEDS ORDERED: NAPROXEN 500 MG TABLET PO STA (11:23)
[2019-01-16] MEDS ORDERED: HYDROcodone/APAP 5/325MG 1 TAB TABLET PO ONE (11:30)
--- NOTE | 2019-01-16 11:43 | RAD ---
Indication:fall lateral side of left ankle and across top of metatarsal post fall TECHNIQUE: 3 views of the left foot and 3 views of the left ankle COMPARISON:None FINDINGS: Foot: No acute fracture or dislocation. Small plantar calcaneal spur. No soft tissue swelling. Ankle: No acute fracture or dislocation. Ankle mortise is intact. No ankle swelling. IMPRESSION: No acute findings. Electronically signed by: Benja Serna DO (01/16/2019 11:40 AM) [id number]
[2019-01-16] MEDS ORDERED: NAPR-514 PO (12:00)
--- NOTE | 2019-01-16 12:00 | PHYS DOC ---
Past Medical History Past Medical History: Anxiety, Asthma, Bronchitis, Diabetes-Type II Additional Past Medical Histor: OBESITY, LUPUS Past Surgical History: Cholecystectomy, Additional Past Surgical Histo: D&C, X2 Alcohol Use: None Drug Use: None Adult General Chief Complaint Chief Complaint: ANKLE PROBLEM HPI HPI Patient is a 33 year old AA female who presents to the emergency department today, accompanied by her girlfriend, with complaints of left foot and ankle pain. Patient states she slipped on some ice yesterday at approximately 1 PM and reports pain and swelling in her foot and ankle since then. Patient states that the pain is a 10 out of 10, she started taking Tylenol for relief of the pain with no benefit. SHe states that nothing alleviates the pain,the pain is exacerbated by weight bearing, palpation, and movement. Review of Systems Review of Systems Constitutional: Denies fever or chills [] Musculoskeletal: CHP I Integument: Denies rash, bruising, or skin lesions [] Neurologic: Denies headache, focal weakness or sensory changes [] Current Medications Current Medications Current Medications Medications (Trade) Dose Ordered Sig/Prem Start Time Stop Time Status Last Admin Dose Admin Acetaminophen/ Hydrocodone Bitart (Lortab 5/325) 1 tab 1X ONCE 01/16/19 11:30 01/16/19 11:31 DC 01/16/19 11:49 1 TAB Naproxen (Naprosyn) 500 mg 1X STAT 01/16/19 11:23 01/16/19 11:28 DC 01/16/19 11:49 500 MG Allergies Allergies Allergies Coded Allergies Type Severity Reaction Last Updated Verified onion Allergy Intermediate Hives 07/25/17 Yes strawberry Allergy Intermediate SWELLS UP 08/25/15 Yes Physical Exam Physical Exam Constitutional: Well developed, well nourished, no acute distress, non-toxic appearance, obese. [] HENT: Normocephalic, atraumatic, bilateral external ears normal, nose normal. [] Eyes: conjunctiva normal, no discharge. [] Neck: Normal range of motion, no stridor. [] Lungs & Thorax: respirations are even unlabored, no retractions Skin: Warm, dry, no erythema, no rash, no bruising. [] Extremities: No cyanosis, no clubbing; LLE: limited ROM due to pain, 1+ edema noted lateral left ankle, lateral left ankle TTP, left midfoot TTP, no crepitus , no deformities Neurologic: Alert and oriented X 3, normal sensory function, no focal deficits noted. [] Psychologic: Affect normal, judgement normal, mood normal. [] Current Patient Data Vital Signs Vital Signs Date Time Temp Pulse Resp B/P (MAP) Pulse Ox O2 Delivery O2 Flow Rate FiO2 01/16/19 11:11 98.0 81 16 163/85 (111) 99 Room Air 98.0 EKG EKG [] Radiology/Procedures Radiology/Procedures PROCEDURE: FOOT LEFT 3V Indication:fall lateral side of left ankle and across top of metatarsal post fall TECHNIQUE: 3 views of the left foot and 3 views of the left ankle COMPARISON:None FINDINGS: Foot: No acute fracture or dislocation. Small plantar calcaneal spur. No soft tissue swelling. Ankle: No acute fracture or dislocation. Ankle mortise is intact. No ankle swelling. IMPRESSION: No acute findings.[] PROCEDURE: ANKLE LEFT 3V Indication:fall lateral side of left ankle and across top of metatarsal post fall TECHNIQUE: 3 views of the left foot and 3 views of the left ankle COMPARISON:None FINDINGS: Foot: No acute fracture or dislocation. Small plantar calcaneal spur. No soft tissue swelling. Ankle: No acute fracture or dislocation. Ankle mortise is intact. No ankle swelling. IMPRESSION: No acute findings. Course & Med Decision Making Course & Med Decision Making Pertinent Labs and Imaging studies reviewed. (See chart for details) dx: lateral left ankle pain, left foot pain, left ankle injury x-rays of his left foot and ankle were negative for any acute findings or dislocations. Patient was placed in an Ernst wrap, rest, elevation, application of ice was recommended, a prescription for naproxen was written. patient was encouraged to Follow up with Dr. Dobbs if symptoms persist, return to the ER if your symptoms worsen. Pt verbalized an understanding of discharge, medications, follow-up, home care, and return to ED precautions, was in agreement with POC. [] Dragon Disclaimer Dragon Disclaimer This electronic medical record was generated, in whole or in part, using a voice recognition dictation system. Departure Departure Impression: Primary Impression: Left lateral ankle pain Additional Impressions: Left ankle injury Left foot pain Disposition: HOME, SELF-CARE Condition: STABLE Referrals: UNKNOWN PCP NAME (PCP) ALEXIS DOBBS II, MD Patient Instructions: Ankle Sprain, [id number] Additional Instructions: Fill prescription(s) and use as directed. Recommend application of ice, elevation, and rest of affected extremity. Wear the ernst wrap that was placed for comfort until follow up appointment. Follow up with Dr. Dobbs if symptoms persist, return to the ER if your symptoms worsen. Scripts Naproxen (NAPROXEN) 500 Mg Tablet 500 MG PO BID PRN for PAIN for 10 Days, #20 TAB 0 Refills Prov: CRISTA WATKINS APRN 01/16/19 Problem Qualifiers Additional Impressions: Left ankle injury Encounter type: initial encounter Qualified Codes: S99.912A - Unspecified injury of left ankle, initial encounter CRISTA WATKINS [employer]SEM[employer]ER Jan 16, 2019 12:00
== END 2019-01-16 12:34 | disposition home or self-care (01) ==
LOC: ER 10:57
DX: S99.912A Unspecified injury of left ankle, initial encounter (principal); M79.672 Pain in left foot; J45.909 Unspecified asthma, uncomplicated; E11.9 Type 2 diabetes mellitus without complications; Z91.018 Allergy to other foods; E66.9 Obesity, unspecified; Z68.41 Body mass index [BMI] 40.0-44.9, adult; W18.39XA Other fall on same level, initial encounter; Y93.89 Activity, other specified; Y92.89 Other specified places as the place of occurrence of the external cause; Y99.8 Other external cause status
CPT/HCPCS: 73610; 73630; 99283

== ENCOUNTER 2019-02-10 09:44 | Emergency (ER) | payer OTHER, MEDICAID ==
[~2019-02-10] VITALS: Ht 165.1 cm; Wt 117.9 kg
[2019-02-10 10:10] VITALS: BP 172/109
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
[2019-02-10] MEDS ORDERED: DICL50TA4 PO (11:02)
[2019-02-10] MEDS ORDERED: NAPROXEN 500 MG TABLET PO STA (11:05)
== END 2019-02-10 11:16 | disposition home or self-care (01) ==
LOC: ER 09:44
DX: S60.222A Contusion of left hand, initial encounter (principal); R03.0 Elevated blood-pressure reading, without diagnosis of hypertension; E11.9 Type 2 diabetes mellitus without complications; J45.909 Unspecified asthma, uncomplicated; Z90.49 Acquired absence of other specified parts of digestive tract; Z91.018 Allergy to other foods; Y04.2XXA Assault by strike against or bumped into by another person, initial encounter; Y93.89 Activity, other specified; Y92.89 Other specified places as the place of occurrence of the external cause; Y99.8 Other external cause status
CPT/HCPCS: 73130; 99283

== ENCOUNTER 2019-03-15 03:32 | Emergency (ER) | payer OTHER, MEDICAID ==
[~2019-03-15] VITALS: Ht 165.1 cm; Wt 117.9 kg
[~2019-03-15 03:32] MED LIST changes: +DICL50TA4 PO
[2019-03-15] MEDS ORDERED: IPRATRPIUM/ALBUTEROL 0.5/2.5MG 3 ML NEBU. NEB ONE (04:00)
[2019-03-15 04:11] VITALS: BP 171/110
[2019-03-15] MEDS ORDERED: ALBU2.5V8 INH (04:15)
[2019-03-15] MEDS ORDERED: predniSONE 10 MG TABLET PO ONE (04:15)
[2019-03-15] MEDS ORDERED: PRED50TA PO (04:15)
--- NOTE | 2019-03-15 05:16 | PHYS DOC ---
Past Medical History Past Medical History: Anxiety, Asthma, Bronchitis, Diabetes-Type II Additional Past Medical Histor: OBESITY, LUPUS Past Surgical History: Cholecystectomy, Additional Past Surgical Histo: D&C, X2 Alcohol Use: None Drug Use: None Adult General Chief Complaint Chief Complaint: SHORTNESS OF BREATH HPI HPI Patient is a 34 year old f p/w sob onset a day or two ago. improved with nothing. pt has no fever. trigger was the wet grass she was exposed to yesterday. similar symptoms in the past with that exposure. dry cough. no fever. chest tightness with coughing. Review of Systems Review of Systems Constitutional: Denies fever or chills [] Cardiovascular: No additional information not addressed in HPI [] GI: Denies abdominal pain, nausea, vomiting, bloody stools or diarrhea [] : Denies dysuria or hematuria [] Musculoskeletal: Denies back pain or joint pain [] Integument: Denies rash or skin lesions [] All other systems were reviewed and found to be within normal limits, except as documented in this note. Current Medications Current Medications Current Medications Medications (Trade) Dose Ordered Sig/Prem Start Time Stop Time Status Last Admin Dose Admin Albuterol/ Ipratropium (Duoneb) 3 ml 1X ONCE 03/15/19 04:00 03/15/19 04:14 DC 03/15/19 04:02 3 ML Prednisone (Prednisone) 50 mg 1X ONCE 03/15/19 04:15 03/15/19 04:16 DC 03/15/19 04:16 50 MG Allergies Allergies Allergies Coded Allergies Type Severity Reaction Last Updated Verified onion Allergy Intermediate Hives 07/25/17 Yes strawberry Allergy Intermediate SWELLS UP 08/25/15 Yes Physical Exam Physical Exam Constitutional: Well developed, well nourished, no acute distress, non-toxic appearance. [] HENT: Normocephalic, atraumatic, bilateral external ears normal, oropharynx moist, no oral exudates, nose normal. [] Eyes: PERRLA, EOMI, conjunctiva normal, no discharge. [] Neck: Normal range of motion, no tenderness, supple, no stridor. [] Cardiovascular:Heart rate regular rhythm, no murmur [] Lungs & Thorax: mild wheezing with reactive cough noted. Abdomen: Bowel sounds normal, soft, no tenderness, no masses, no pulsatile masses. [] Skin: Warm, dry, no erythema, no rash. [] Back: No tenderness, no CVA tenderness. [] Extremities: No tenderness, no cyanosis, no clubbing, ROM intact, no edema. [] Neurologic: Alert and oriented X 3, normal motor function, normal sensory function, no focal deficits noted. [] Psychologic: Affect normal, judgement normal, mood normal. [] Current Patient Data Vital Signs Vital Signs Date Time Temp Pulse Resp B/P (MAP) Pulse Ox O2 Delivery O2 Flow Rate FiO2 03/15/19 04:11 80 16 171/110 (130) 100 Room Air 03/15/19 03:54 98.1 98.1 EKG EKG [] Radiology/Procedures Radiology/Procedures [] Course & Med Decision Making Course & Med Decision Making Pertinent Labs and Imaging studies reviewed. (See chart for details) []34 yo f with asthma p/w sob and cough with some wheezing. likely mild asthma exacerbation. felt much better after nebs. sat 100 speaking full sentences. prednisone and proair rx return prec reviewed. Dragon Disclaimer Heidi Disclaimer This electronic medical record was generated, in whole or in part, using a voice recognition dictation system. Departure Departure Impression: Primary Impression: Asthma exacerbation Additional Impression: Acute bronchitis Disposition: 01 HOME, SELF-CARE Condition: STABLE Referrals: UNKNOWN PCP NAME (PCP) Patient Instructions: Asthma, Adult Scripts Albuterol Sulfate (PROAIR HFA INHALER) 8.5 Gm Hfa.aer.ad 1 PUFF INH PRN Q6HRS PRN for SHORTNESS OF BREATH, #1 INHALER 0 Refills Prov: RICARDO RYAN MD 03/15/19 Prednisone (PREDNISONE) 50 Mg Tablet 1 TAB PO DAILY, #5 TAB Prov: RICARDO RYAN MD 03/15/19 Problem Qualifiers RICARDO RYAN MD March 15, 2019 05:16
== END 2019-03-15 04:24 | disposition home or self-care (01) ==
LOC: ER 03:32
DX: J45.901 Unspecified asthma with (acute) exacerbation (principal); J20.9 Acute bronchitis, unspecified; E11.9 Type 2 diabetes mellitus without complications; E66.9 Obesity, unspecified; Z68.41 Body mass index [BMI] 40.0-44.9, adult; Z91.018 Allergy to other foods
CPT/HCPCS: 94640; 99283; J7512; J7620

== ENCOUNTER 2019-03-17 13:59 | Emergency (ER) | payer OTHER, MEDICAID ==
[~2019-03-17] VITALS: Ht 165.1 cm; Wt 117.9 kg
[2019-03-17] MEDS ORDERED: IPRATRPIUM/ALBUTEROL 0.5/2.5MG 3 ML NEBU. NEB ONE (14:30)
[2019-03-17] MEDS ORDERED: predniSONE 10 MG TABLET PO ONE (14:30)
[2019-03-17] MEDS ORDERED: ALBU2.5V8 INH (15:19)
[2019-03-17] MEDS ORDERED: PRED50TA PO (15:19)
--- NOTE | 2019-03-17 15:20 | PHYS DOC ---
Past Medical History Past Medical History: Asthma, Diabetes-Type II Additional Past Medical Histor: OBESITY, LUPUS Past Surgical History: Cholecystectomy, Additional Past Surgical Histo: D&C, X2 Alcohol Use: None Drug Use: None Adult General Chief Complaint Chief Complaint: SHORTNESS OF BREATH [facility] Patient is a 34 year old female who presents with severe shortness of breath from an asthma exacerbation. Patient states that her asthma has been flaring up with us warm weather. She used her child's nebulizer machine after she failed to get any relief from her hand-held inhaler. She states that she felt better for a short amount of time. She then had increasing shortness of air and presented directly to the emergency department. Review of Systems Review of Systems Constitutional: Denies fever or chills [] Eyes: Denies change in visual acuity, redness, or eye pain [] HENT: Denies nasal congestion or sore throat [] Respiratory: See history of present illness Cardiovascular: No additional information not addressed in HPI [] GI: Denies abdominal pain, nausea, vomiting, bloody stools or diarrhea [] : Denies dysuria or hematuria [] Musculoskeletal: Denies back pain or joint pain [] Integument: Denies rash or skin lesions [] Neurologic: Denies headache, focal weakness or sensory changes [] Endocrine: Denies polyuria or polydipsia [] All other systems were reviewed and found to be within normal limits, except as documented in this note. Current Medications Current Medications Current Medications Medications (Trade) Dose Ordered Sig/Prem Start Time Stop Time Status Last Admin Dose Admin Albuterol/ Ipratropium (Duoneb) 3 ml 1X ONCE 03/17/19 14:30 03/17/19 14:31 DC 03/17/19 14:42 3 ML Prednisone (Prednisone) 50 mg 1X ONCE 03/17/19 14:30 03/17/19 14:31 DC 03/17/19 14:36 50 MG Allergies Allergies Allergies Coded Allergies Type Severity Reaction Last Updated Verified onion Allergy Intermediate Hives 07/25/17 Yes strawberry Allergy Intermediate SWELLS UP 08/25/15 Yes Physical Exam Physical Exam Constitutional: Well developed, well nourished, no acute distress, non-toxic appearance. [] Cardiovascular:Heart rate regular rhythm, no murmur [] Lungs & Thorax: Bilateral breath sounds decreased throughout Abdomen: Bowel sounds normal, soft, no tenderness, no masses, no pulsatile masses. [] Skin: Warm, dry, no erythema, no rash. [] Back: No tenderness, no CVA tenderness. [] Extremities: No tenderness, no cyanosis, no clubbing, ROM intact, no edema. [] Neurologic: Alert and oriented X 3, normal motor function, normal sensory function, no focal deficits noted. [] Psychologic: Affect normal, judgement normal, mood normal. [] Current Patient Data Vital Signs Vital Signs Date Time Temp Pulse Resp B/P (MAP) Pulse Ox O2 Delivery O2 Flow Rate FiO2 03/17/19 15:25 75 20 146/82 (103) 94 Room Air 03/17/19 14:16 98.2 98.2 EKG EKG [] Radiology/Procedures Radiology/Procedures [] Course & Med Decision Making Course & Med Decision Making Pertinent Labs and Imaging studies reviewed. (See chart for details) []The patient was given an nebulized treatment in the emergency department and administration of 50 mg of prednisone. She now has good breath sounds in all qu adrants. She states that she is feeling much better. Dragon Disclaimer Dragon Disclaimer This electronic medical record was generated, in whole or in part, using a voice recognition dictation system. Departure Departure Impression: Primary Impression: Asthma exacerbation Disposition: 01 HOME, SELF-CARE Condition: STABLE Referrals: UNKNOWN PCP NAME (PCP) Patient Instructions: Asthma, Adult Additional Instructions: Take the prednisone as directed with food on your stomach. Use the inhaler as needed. Follow-up with your primary care provider if not improving or return to the emergency department immediately if worsening. Scripts Albuterol Sulfate (PROAIR HFA INHALER) 8.5 Gm Hfa.aer.ad 1 PUFF INH PRN Q6HRS PRN for SHORTNESS OF BREATH, #1 INHALER 6 Refills Prov: CHLEO SOSA APRN 03/17/19 Prednisone (PREDNISONE) 50 Mg Tablet 1 TAB PO DAILY for asthma, #5 TAB Prov: CHLOE SOSA APRN 03/17/19 CHLOE SOSA APRN March 17, 2019 15:20
[2019-03-17 15:25] VITALS: BP 146/82
== END 2019-03-17 15:25 | disposition home or self-care (01) ==
LOC: ER 13:59
DX: J45.901 Unspecified asthma with (acute) exacerbation (principal); E11.9 Type 2 diabetes mellitus without complications; E66.9 Obesity, unspecified; Z68.41 Body mass index [BMI] 40.0-44.9, adult; Z91.018 Allergy to other foods
CPT/HCPCS: 94640; 99283; J7512; J7620

== ENCOUNTER 2019-05-31 17:26 | Emergency (ER) | payer OTHER, MEDICAID ==
[~2019-05-31] VITALS: Ht 165.1 cm; Wt 117.9 kg
[2019-05-31] MEDS ORDERED: IPRATRPIUM/ALBUTEROL 0.5/2.5MG 3 ML NEBU. ONE (17:53)
--- NOTE | 2019-05-31 18:01 | PHYS DOC ---
Past Medical History Past Medical History: Asthma, Diabetes-Type II Additional Past Medical Histor: OBESITY, LUPUS Past Surgical History: Cholecystectomy, Additional Past Surgical Histo: D&C, X2 Alcohol Use: None Drug Use: None Adult General Chief Complaint Chief Complaint: SHORTNESS OF BREATH HPI HPI 34 y/o male presents to ER via POV for complaints of shortness of air. She reports history of asthma and her inhaler hasn't been improving her symptoms. She denies fever, pain, or cough. She denies recent travel. Review of Systems Review of Systems Constitutional: Denies fever or chills [] Eyes: Denies change in visual acuity, redness, or eye pain [] HENT: Denies nasal congestion or sore throat [] Respiratory: Denies cough. Reports SOA/labored breathing Cardiovascular: Denies CP/tightness GI: Denies abdominal pain, nausea, vomiting, bloody stools or diarrhea [] : Denies dysuria or hematuria [] Musculoskeletal: Denies back/neck pain or joint pain [] Integument: Denies rash or skin lesions [] Neurologic: Denies headache, focal weakness or sensory changes. Denies dizziness All other systems were reviewed and found to be within normal limits, except as documented in this note. Current Medications Current Medications Current Medications Medications (Trade) Dose Ordered Sig/Prem Start Time Stop Time Status Last Admin Dose Admin Albuterol/ Ipratropium (Duoneb) 3 ml 1X ONCE 05/31/19 18:15 05/31/19 18:16 DC 05/31/19 18:12 3 ML Prednisone (Prednisone) 50 mg 1X ONCE 05/31/19 18:15 05/31/19 18:16 DC 05/31/19 18:38 50 MG Allergies Allergies Allergies Coded Allergies Type Severity Reaction Last Updated Verified onion Allergy Intermediate Hives 07/25/17 Yes strawberry Allergy Intermediate SWELLS UP 08/25/15 Yes Physical Exam Physical Exam Constitutional: Well developed, well nourished, no acute distress, non-toxic appearance. [] HENT: Normocephalic, atraumatic, oropharynx moist, no oral exudates/pharyngeal swelling or erythema, nose normal. [] Eyes: Pupils equal, conjunctiva normal, no discharge. [] Neck: Normal range of motion, no tenderness, supple, no stridor/gross adenopathy Cardiovascular: Heart rate regular rhythm, no murmur [] Lungs & Thorax: Diminished air movement throughout all lung cervantes with less air movement in bases. Respirations are equal and labored. Speaking in fragmented sentences Abdomen: Bowel sounds normal, soft, no tenderness, no masses, no pulsatile masses. [] Skin: Warm, dry, no erythema, no rash. [] Back: No tenderness, no CVA tenderness. [] Extremities: No tenderness, no cyanosis, no clubbing, ROM intact, no edema. [] Neurologic: Alert and oriented X 3, normal motor function, normal sensory function, no focal deficits noted. [] Psychologic: Affect normal, judgement normal, mood normal. [] Current Patient Data Vital Signs Vital Signs Date Time Temp Pulse Resp B/P (MAP) Pulse Ox O2 Delivery O2 Flow Rate FiO2 05/31/19 18:49 76 20 166/97 (120) 99 Room Air 05/31/19 17:33 98.5 98.5 EKG EKG [] Radiology/Procedures Radiology/Procedures [] Course & Med Decision Making Course & Med Decision Making 1824: Patient was evaluated in the ER for complaints of shortness of air with history of asthma. She received 2 DuoNeb treatments and dose of prednisone. At this time patient reports symptoms much improved she has equal nonlabored respirations. Patient has increased air movement throughout all lung cervantes. Lung sounds are clear equal bilateral. She is speaking in full sentences. Chest xray had been ordered for further eval. and following improvement of SOA this was discussed. Patient states with improved breathing she feels her symptoms were due to asthma exacerbation and is not wanting x-ray done at this time. She is afebrile with stable vital signs. Patient requesting work note as she works in the heat so will provide with d/c paperwork. She reports she has inhaler and nebulizer at home to use. Will provide prescription for prednisone. Pt encouraged to increase fluid intake. Education provided on signs and symptoms to return to ER. Discharge instructions were discussed. Patient to follow-up with primary care physician if symptoms persist or with any concerns. Dragon Disclaimer Dragon Disclaimer This electronic medical record was generated, in whole or in part, using a voice recognition dictation system. Departure Departure Impression: Primary Impression: Asthma exacerbation Disposition: HOME, SELF-CARE Condition: STABLE Referrals: UNKNOWN PCP NAME (PCP) Patient Instructions: Asthma Attacks, Prevention, Asthma, Adult Additional Instructions: Drink plenty of water daily. Use your prescribed an inhaler and nebulizer as directed. If symptoms persist follow-up with your primary care physician for reevaluation and further care or return to the emergency department. Scripts Prednisone (PREDNISONE) 50 Mg Tablet 1 TAB PO DAILY, #4 TAB 0 Refills Start 06/01/19 Prov: CARLOS MOFFETT APRN 05/31/19 CARLOS MOFFETT APRN May 31, 2019 18:01
[2019-05-31] MEDS ORDERED: predniSONE 10 MG TABLET PO ONE (18:15)
[2019-05-31] MEDS ORDERED: IPRATRPIUM/ALBUTEROL 0.5/2.5MG 3 ML NEBU. NEB ONE (18:15)
[2019-05-31] MEDS ORDERED: PRED50TA PO (18:41)
[2019-05-31 18:49] VITALS: BP 166/97
== END 2019-05-31 18:52 | disposition home or self-care (01) ==
LOC: ER 17:26
DX: J45.901 Unspecified asthma with (acute) exacerbation (principal); E11.9 Type 2 diabetes mellitus without complications; E66.9 Obesity, unspecified; Z68.41 Body mass index [BMI] 40.0-44.9, adult; Z91.018 Allergy to other foods
CPT/HCPCS: 94640; 99284; J7512; J7620

== ENCOUNTER 2019-11-26 15:08 | Emergency (ER) | payer MEDICAID, MEDICARE, OTHER ==
[~2019-11-26] VITALS: Ht 162.6 cm; Wt 109.8 kg
[~2019-11-26 15:08] MED LIST changes: -ALBU2.5V8 IH; -CETI10TA22 PO; +CETI10TA24 PO; +MECL-75 PO; -MECL25TA3 PO; +PROVENTIL HFA6.7 GM IH
[2019-11-26 16:20] VITALS: BP 165/105
--- NOTE | 2019-11-26 16:34 | PHYS DOC ---
Past Medical History Past Medical History: Asthma, Diabetes-Type II Additional Past Medical Histor: OBESITY, LUPUS Past Surgical History: Cholecystectomy, Additional Past Surgical Histo: D&C, X2 Alcohol Use: None Drug Use: None Adult General Chief Complaint Chief Complaint: FLU SYMPTOM HPI HPI Patient is a 34 year old female who presents with 1 week patient has had cough with green mucus production in the cough causes her to have diarrhea and vomiting. Patient states she has chest congestion and bilateral ear pain. Valdo rosemary rates her pain 9 out of 10 and has not taken Tylenol since yesterday. She is afebrile today here. Patient does have a history of asthma and states she's been using her inhaler but is not helping. Review of Systems Review of Systems Constitutional: fever or chills [] HENT: nasal congestion or sore throat [] Respiratory: cough or shortness of breath [] GI: Denies abdominal pain, nausea. +vomiting with coughing, denies bloody stools. +diarrhea [] All other systems were reviewed and found to be within normal limits, except as documented in this note. Current Medications Current Medications Current Medications Medications (Trade) Dose Ordered Sig/Prem Start Time Stop Time Status Last Admin Dose Admin Acetaminophen (Tylenol) 1,000 mg 1X ONCE 11/26/19 17:00 11/26/19 17:01 DC 11/26/19 16:39 1,000 MG Albuterol Sulfate (Ventolin Neb Soln) 2.5 mg 1X ONCE 11/26/19 17:00 11/26/19 17:01 DC 11/26/19 17:00 2.5 MG Allergies Allergies Allergies Coded Allergies Type Severity Reaction Last Updated Verified onion Allergy Intermediate Hives 07/25/17 Yes strawberry Allergy Intermediate SWELLS UP 08/25/15 Yes Physical Exam Physical Exam Constitutional: Well developed, well nourished, no acute distress, non-toxic appearance. [] HENT: Normocephalic, atraumatic, bilateral external ears normal, oropharynx moist, no oral exudates, nose normal. Bilateral tympanics red and tender. [] Eyes: PERRLA, EOMI, conjunctiva normal, no discharge. [] Neck: Normal range of motion, no tenderness, supple, no stridor. [] Cardiovascular:Heart rate regular rhythm, no murmur [] Lungs & Thorax: Bilateral upper breath sounds clear and lower diminished to auscultation [] Abdomen: Bowel sounds normal, soft, no tenderness, no masses, no pulsatile masses. [] Skin: Warm, dry, no erythema, no rash. [] Back: No tenderness, no CVA tenderness. [] Extremities: No tenderness, no cyanosis, no clubbing, ROM intact, no edema. [] Neurologic: Alert and oriented X 3, normal motor function, normal sensory function, no focal deficits noted. [] Psychologic: Affect normal, judgement normal, mood normal. [] Current Patient Data Vital Signs Vital Signs Date Time Temp Pulse Resp B/P (MAP) Pulse Ox O2 Delivery O2 Flow Rate FiO2 11/26/19 17:00 100 Room Air 11/26/19 16:20 97.5 70 20 165/105 (125) 97.5 Lab Values Laboratory Tests Test 11/26/19 16:20 Influenza Type A Antigen Negative (NEGATIVE) Influenza Type B Antigen Negative (NEGATIVE) EKG EKG [] Radiology/Procedures Radiology/Procedures [] Course & Med Decision Making Course & Med Decision Making Lungs are clear in upper lobes but diminished in lower lobes. Patient speaks in full clear sentences. She is very tearful because she does not feel well. Ambulatory with a steady gait. Skin pink warm and dry. Throat is pink without exudates or swelling. Bilateral tympanic is tender with urination and very red. Patient states she is vomiting when she is having a coughing fit and will lose her bowels during coughing fits. Influenza Negative. Chest x-ray read as no acute obvious findings by Dr. Betancur. Heidi Disclaimer Heidi Disclaimer This electronic medical record was generated, in whole or in part, using a voice recognition dictation system. Departure Departure Impression: Primary Impression: Otitis media Additional Impression: Upper respiratory infection Disposition: 01 HOME, SELF-CARE Condition: STABLE Referrals: UNKNOWN PCP NAME (PCP) Patient Instructions: Asthma, Adult, Upper Respiratory Infection, Adult Additional Instructions: Follow up with primary care provider.. Take medications as prescribed. Drink plenty of fluids. Take Tylenol every 4-6 hours to help with her pain and fever. Take medications as prescribed. Scripts Albuterol Sulfate (ALBUTEROL SULFATE NEB SOLN) 2.5 Mg/3 Ml Vial.neb 1 VIAL NEB PRN Q4HRS, #50 VIAL Prov: EDOSN MCCLELLAN GLOVE MACHINE OPERATOR 11/26/19 Albuterol Sulfate (PROAIR HFA INHALER) 8.5 Gm Hfa.aer.ad 1 PUFF INH PRN Q6HRS PRN for SHORTNESS OF BREATH, #1 INHALER 0 Refills Prov: EDSON MCCLELLAN GLOVE MACHINE OPERATOR 11/26/19 Benzonatate (TESSALON PERLE) 100 Mg Capsule 1 CAP PO TID, #30 CAP Prov: EDSON MCCLELLAN GLOVE MACHINE OPERATOR 11/26/19 Amoxicillin (AMOXICILLIN) 500 Mg Capsule 1 CAP PO BID, #20 CAP Prov: EDSON MCCLELLAN GLOVE MACHINE OPERATOR 11/26/19 Methylprednisolone (MEDROL) 4 Mg Tab.ds.pk 1 PKG PO UD, #1 PKG Prov: EDSON MCCLELLAN GLOVE MACHINE OPERATOR 11/26/19 Ondansetron (ONDANSETRON ODT) 4 Mg Tab.rapdis 1 TAB PO PRN Q6-8HRS, #16 TAB Prov: EDSON MCCLELLAN GLOVE MACHINE OPERATOR 11/26/19 Problem Qualifiers Primary Impression: Otitis media Otitis media type: suppurative Chronicity: acute Laterality: bilateral Recurrence: non-recurrent Spontaneous tympanic membrane rupture: without spontaneous rupture Qualified Codes: H66.003 - Acute suppurative otitis media without spontaneous rupture of ear drum, bilateral Additional Impression: Upper respiratory infection URI type: unspecified URI Qualified Codes: J06.9 - Acute upper respiratory infection, unspecified EDSON MCCLELLAN GLOVE MACHINE OPERATOR Nov 26, 2019 16:34
[2019-11-26 16:59] LABS: INFLUENZA A PATIENT NEGATIVE (NEGATIVE); INFLUENZA B PATIENT NEGATIVE (NEGATIVE)
[2019-11-26] MEDS ORDERED: ALBUTEROL SULFATE 2.5 MG/3 ML NEBU. NEB ONE (17:00)
[2019-11-26] MEDS ORDERED: ACETAMINOPHEN 500 MG TABLET PO ONE (17:00)
[2019-11-26] MEDS ORDERED: ONDA4TAB12 PO (17:12)
[2019-11-26] MEDS ORDERED: METH4TAB2 PO (17:12)
[2019-11-26] MEDS ORDERED: AMOX500C PO (17:12)
[2019-11-26] MEDS ORDERED: BENZ100C PO (17:12)
[2019-11-26] MEDS ORDERED: ALBU2.5V8 INH (17:12)
[2019-11-26] MEDS ORDERED: ALBU2.5V5 NEB (17:27)
--- NOTE | 2019-11-26 22:49 | RAD ---
Exam: Chest 2 views INDICATION: Cough TECHNIQUE: Frontal and lateral views the chest Comparisons: None FINDINGS: The cardiomediastinal silhouette and pulmonary vessels are within normal limits. The lung and pleural spaces are clear. IMPRESSION: No acute cardiopulmonary process. Electronically signed by: Jonna Wallis MD (11/26/2019 10:46 PM) [facility]
== END 2019-11-26 17:30 | disposition home or self-care (01) ==
LOC: ER 15:08
DX: H66.003 Acute suppurative otitis media without spontaneous rupture of ear drum, bilateral (principal); J06.9 Acute upper respiratory infection, unspecified; R09.89 Other specified symptoms and signs involving the circulatory and respiratory systems; R11.10 Vomiting, unspecified; R19.7 Diarrhea, unspecified; J45.909 Unspecified asthma, uncomplicated; E11.9 Type 2 diabetes mellitus without complications; E66.8 Other obesity; Z68.41 Body mass index [BMI] 40.0-44.9, adult; Z90.49 Acquired absence of other specified parts of digestive tract; Z98.890 Other specified postprocedural states; Z91.018 Allergy to other foods
CPT/HCPCS: 71046; 87804; 94640; 99285; J7613

== ENCOUNTER 2019-12-15 15:45 | Emergency (ER) | payer MEDICARE ==
[~2019-12-15] VITALS: Ht 154.9 cm; Wt 109.0 kg
[~2019-12-15 15:45] MED LIST changes: +ALBU2.5V5 NEB; +METH4TAB2 PO; +ONDA4TAB12 PO
[2019-12-15 16:32] VITALS: BP 181/105
[2019-12-15] MEDS ORDERED: DEXAMETHASONE 4 MG TABLET PO STA (16:34)
[2019-12-15] MEDS ORDERED: CIPR2.5D EACH EAR (16:43)
--- NOTE | 2019-12-15 16:43 | PHYS DOC ---
Past Medical History Past Medical History: No Pertinent History, Asthma, Diabetes-Type II Additional Past Medical Histor: OBESITY, LUPUS Past Surgical History: No Surgical History, Cholecystectomy, Additional Past Surgical Histo: D&C, X2 Alcohol Use: None Drug Use: None Adult General Chief Complaint Chief Complaint: ASTHMA HPI HPI Patient is a 34 year old female who presents with shortness of breath and wheezing since last night. The patient took a home treatment last night that helped some. She also has been having bilateral ear pain for the last month and was placed on Amoxicillin on but it has not improved. Denies additional symptoms. Denies fever. Complete ROS were reviewed and found to be within normal limits, except as documented in the HPI Current Medications Current Medications Current Medications Medications (Trade) Dose Ordered Sig/Prem Start Time Stop Time Status Last Admin Dose Admin Albuterol/ Ipratropium (Duoneb) 3 ml 1X ONCE 12/15/19 16:45 12/15/19 16:46 DC 12/15/19 16:43 3 ML Dexamethasone (Decadron) 10 mg 1X STAT 12/15/19 16:34 12/15/19 16:36 DC 12/15/19 16:41 10 MG Allergies Allergies Allergies Coded Allergies Type Severity Reaction Last Updated Verified onion Allergy Intermediate Hives 07/25/17 Yes strawberry Allergy Intermediate SWELLS UP 08/25/15 Yes Physical Exam Physical Exam Constitutional: Well developed, well nourished, no acute distress, non-toxic appearance. [] HENT: Normocephalic, atraumatic, bilateral external canals are erythematous and edematous with pain on touching ear, oropharynx moist, no oral exudates, nose normal. [] Eyes: PERRLA, EOMI, conjunctiva normal, no discharge. [] Neck: Normal range of motion, no tenderness, supple, no stridor. [] Cardiovascular:Heart rate regular rhythm, no murmur [] Lungs & Thorax: Bilateral breath sounds have expiratory wheezing diffusely. Skin: Warm, dry, no erythema, no rash. [] Neurologic: Alert and oriented X 3, normal motor function, normal sensory fu nction, no focal deficits noted. [] Psychologic: Affect normal, judgement normal, mood normal. [] Current Patient Data Vital Signs Vital Signs Date Time Temp Pulse Resp B/P (MAP) Pulse Ox O2 Delivery O2 Flow Rate FiO2 12/15/19 16:44 94 Room Air 12/15/19 16:32 98.1 73 22 181/105 (130) 98.1 Lab Values Laboratory Tests Test 12/15/19 16:47 Glucose (Fingerstick) 98 mg/dL (70-99) EKG EKG [] Radiology/Procedures Radiology/Procedures [] Course & Med Decision Making Course & Med Decision Making Pertinent Labs and Imaging studies reviewed. (See chart for details) 1. Will place on Cipro for Otitis Externa 2. Will give breathing treatment and Decadron for Asthma Exacerbation.--Feeling better after treatment. 3. Will check blood glucose. -98 Dragon Disclaimer Dragon Disclaimer This electronic medical record was generated, in whole or in part, using a voice recognition dictation system. Departure Departure Impression: Primary Impression: Asthma exacerbation Additional Impression: Otitis externa of both ears Disposition: HOME, SELF-CARE Condition: STABLE Referrals: UNKNOWN PCP NAME (PCP) Patient Instructions: Asthma Attacks, Prevention, Otitis Externa Additional Instructions: Thank you for visiting [facility]. We appreciate you trusting us with your care. If any additional problems come up don't hesitate to return to visit us. Please follow up with your primary care provider so they can plan additional care if needed and know about the problem that you had. If symptoms worsen come back to the Emergency Department. Any concerning symptoms that start such as chest pain, shortness of air, weakness or numbness on one side of the body, running high fevers or any other concerning symptoms return to the ER. You have been prescribed an antibiotic today to help fight your infection. Please take all of the antibiotic as directed. If after 48 hours the infection is not improving, please return for more care. If the infection worsens, return to ER for additional care. Scripts Ciprofloxacin Hcl (CIPROFLOXACIN HCL) 2.5 Ml Drops 3 DROP EACH EAR BID for 10 Days, #1 BOTTLE Prov: DAYA MOHR APRN 12/15/19 Problem Qualifiers Additional Impression: Otitis externa of both ears Otitis externa type: unspecified type Chronicity: acute Qualified Codes: H60.503 - Unspecified acute noninfective otitis externa, bilateral DAYA MOHR APRN Dec 15, 2019 16:43
[2019-12-15] MEDS ORDERED: IPRATRPIUM/ALBUTEROL 0.5/2.5MG 3 ML NEBU. NEB ONE (16:45)
--- NOTE | 2019-12-15 17:18 | RAD ---
Exam: Chest 2 views INDICATION: Shortness of breath TECHNIQUE: Frontal and lateral views of the chest Comparisons: 11/26/2019 FINDINGS: The cardiomediastinal silhouette and pulmonary vessels are within normal limits. The lung and pleural spaces are clear. IMPRESSION: No acute cardiopulmonary process. Electronically signed by: Jonna Wallis MD (12/15/2019 5:15 PM) [facility]
== END 2019-12-15 17:50 | disposition home or self-care (01) ==
LOC: ER 15:45
DX: J45.901 Unspecified asthma with (acute) exacerbation (principal); H60.503 Unspecified acute noninfective otitis externa, bilateral; E11.9 Type 2 diabetes mellitus without complications; E66.9 Obesity, unspecified; Z68.42 Body mass index [BMI] 45.0-49.9, adult; Z91.018 Allergy to other foods
CPT/HCPCS: 71046; 82962; 94640; 99285; J7620; J8540

== ENCOUNTER 2020-02-04 15:28 | Emergency (ER) | payer SELFPAY ==
[~2020-02-04] VITALS: Ht 165.1 cm; Wt 109.0 kg
[~2020-02-04 15:28] MED LIST changes: +CIPR2.5D EACH EAR
[2020-02-04] MEDS: MORPHINE SULFATE 10 MG/ML VIAL. IM ONE (17:20)
[2020-02-04] MEDS: KETOROLAC 60 MG/2 ML VIAL. IM ONE (17:20)
--- NOTE | 2020-02-04 17:58 | RAD ---
Exam: Left shoulder 3 views INDICATION: Left shoulder pain with movement and palpation TECHNIQUE: Frontal view of the chest Comparisons: None FINDINGS: Bone mineralization is normal. No acute or healed fractures. Soft tissues are unremarkable. Joint spaces are well-maintained. IMPRESSION: No acute osseous abnormality. Electronically signed by: Jonna Wallis MD (02/04/2020 5:55 PM) [id number]
[2020-02-04] MEDS ORDERED: NAPR-514 PO (18:10)
--- NOTE | 2020-02-04 18:11 | PHYS DOC ---
Past Medical History Past Medical History: Asthma, Diabetes-Type II Additional Past Medical Histor: OBESITY, LUPUS, bronchitis (CRISTA WATKINS APRN) Past Surgical History: No Surgical History, Cholecystectomy, Additional Past Surgical Histo: D&C, X2 (CRISTA WATKINS APRN) Smoking Status: Never Smoker Alcohol Use: None Drug Use: None (CRISTA WATKINS APRN) Attending Signature I have participated in the care of this patient and I have reviewed and agree with all pertinent clinical information above including history, exam, and recommendations. (ANN MARIE JAMISON MD) Adult General Chief Complaint Chief Complaint: UPPER EXTREMITY SWELLING HPI HPI Patient is a 34 year old [f__sex] who presents with [] (CRISTA WATKINS APRN) Review of Systems Review of Systems Constitutional: Denies fever or chills [] Eyes: Denies change in visual acuity, redness, or eye pain [] HENT: Denies nasal congestion or sore throat [] Respiratory: Denies cough or shortness of breath [] Cardiovascular: No additional information not addressed in HPI [] GI: Denies abdominal pain, nausea, vomiting, bloody stools or diarrhea [] : Denies dysuria or hematuria [] Musculoskeletal: Denies back pain or joint pain [] Integument: Denies rash or skin lesions [] Neurologic: Denies headache, focal weakness or sensory changes [] Endocrine: Denies polyuria or polydipsia [] All other systems were reviewed and found to be within normal limits, except as documented in this note. (CRISTA WATKINS APRN) Current Medications Current Medications Current Medications Medications (Trade) Dose Ordered Sig/Prem Start Time Stop Time Status Last Admin Dose Admin Ketorolac Tromethamine (Toradol Im) 30 mg 1X ONCE 02/04/20 17:15 02/04/20 17:16 DC 02/04/20 17:20 30 MG Morphine Sulfate (Morphine Sulfate) 5 mg 1X ONCE 02/04/20 17:15 02/04/20 17:16 DC 02/04/20 17:20 5 MG (ANN MARIE JAMISON MD) Allergies Allergies Allergies Coded Allergies Type Severity Reaction Last Updated Verified onion Allergy Intermediate Hives 07/25/17 Yes strawberry Allergy Intermediate SWELLS UP 08/25/15 Yes (ANN MARIE JAMISON MD) Physical Exam Physical Exam Constitutional: Well developed, well nourished, no acute distress, non-toxic appearance. [] HENT: Normocephalic, atraumatic, bilateral external ears normal, oropharynx moist, no oral exudates, nose normal. [] Eyes: PERRLA, EOMI, conjunctiva normal, no discharge. [] Neck: Normal range of motion, no tenderness, supple, no stridor. [] Cardiovascular:Heart rate regular rhythm, no murmur [] Lungs & Thorax: Bilateral breath sounds clear to auscultation [] Abdomen: Bowel sounds normal, soft, no tenderness, no masses, no pulsatile masses. [] Skin: Warm, dry, no erythema, no rash. [] Back: No tenderness, no CVA tenderness. [] Extremities: No tenderness, no cyanosis, no clubbing, ROM intact, no edema. [] Neurologic: Alert and oriented X 3, normal motor function, normal sensory funct ion, no focal deficits noted. [] Psychologic: Affect normal, judgement normal, mood normal. [] (CRISTA WATKINS APRN) Current Patient Data Vital Signs Vital Signs Date Time Temp Pulse Resp B/P (MAP) Pulse Ox O2 Delivery O2 Flow Rate FiO2 02/04/20 18:22 88 16 148/89 (108) 100 Room Air 02/04/20 16:47 98.2 98.2 (ANN MARIE JAMISON MD) Lab Values Laboratory Tests Test 02/04/20 16:20 POC Urine HCG, Qualitative Hcg negative (Negative) (ANN MARIE JAMISON MD) EKG EKG [] (CRISTA WATKINS APRN) Radiology/Procedures Radiology/Procedures [] (CRISTA WATKINS APRN) Course & Med Decision Making Course & Med Decision Making Pertinent Labs and Imaging studies reviewed. (See chart for details) [] (CRISTA WATKINS APRN) Dragon Disclaimer Dragon Disclaimer This electronic medical record was generated, in whole or in part, using a voice recognition dictation system. (CRISTA WATKINS APRN) Departure Departure Impression: Primary Impression: Left shoulder pain Disposition: 01 HOME, SELF-CARE Condition: STABLE Referrals: CHE SLADE MD Patient Instructions: Shoulder Pain, [id number] Additional Instructions: Fill prescription(s) and use as directed. Recommend application of ice, elevation, and rest of affected extremity. Activity as tolerated. Follow up with Dr. Slade for further evaluation of your chronic shoulder pain. Return to the ER if your symptoms worsen. Scripts Naproxen (NAPROXEN) 500 Mg Tablet 1 TAB PO BID PRN for PAIN for 10 Days, #20 TAB 0 Refills Prov: CRISTA WATKINS APRN 02/04/20 Problem Qualifiers Primary Impression: Left shoulder pain Chronicity: chronic Qualified Codes: M25.512 - Pain in left shoulder; G89.29 - Other chronic pain CRISTA WATKINS APRN Feb 04, 2020 18:11 ANN MARIE JAMISON MD Feb 05, 2020 01:29
[2020-02-04 18:22] VITALS: BP 148/89
== END 2020-02-04 18:37 | disposition home or self-care (01) ==
LOC: ER 15:28
DX: M25.512 Pain in left shoulder (principal); J45.909 Unspecified asthma, uncomplicated; E11.9 Type 2 diabetes mellitus without complications; E66.9 Obesity, unspecified; Z68.41 Body mass index [BMI] 40.0-44.9, adult; Z90.49 Acquired absence of other specified parts of digestive tract; Z98.890 Other specified postprocedural states
CPT/HCPCS: 73030; 81025; 96372; 99284; J1885; J2270

== ENCOUNTER 2020-02-15 18:41 | Emergency (ER) | payer SELFPAY ==
[~2020-02-15] VITALS: Ht 162.6 cm; Wt 115.0 kg
[2020-02-15 18:59] VITALS: BP 170/109
[2020-02-15] MEDS ORDERED: PRED20TA PO (19:01)
--- NOTE | 2020-02-15 19:01 | PHYS DOC ---
Past Medical History Past Medical History: Asthma, Bronchitis, Diabetes-Type II Additional Past Medical Histor: OBESITY, LUPUS, bronchitis Past Surgical History: No Surgical History, Cholecystectomy, Additional Past Surgical Histo: D&C, X2 Smoking Status: Never Smoker Alcohol Use: None Drug Use: None Adult General Chief Complaint Chief Complaint: SHORTNESS OF BREATH [facility] HPI Patient is a 34-year-old female with a history of asthma and bronchitis. She presents stating that over the last couple of days she has had a cough congestion and been short of breath. She denies any fever chills or sweats. She denies hemoptysis. She denies any significant chest pain. She has been using her albuterol metered-dose inhaler at home with some relief.] Review of Systems Review of Systems Constitutional: Denies fever or chills [] Eyes: Denies change in visual acuity, redness, or eye pain [] HENT: Denies nasal congestion or sore throat [] Respiratory: Per history of present illness[] Cardiovascular: No additional information not addressed in HPI [] GI: Denies abdominal pain, nausea, vomiting, bloody stools or diarrhea [] : Denies dysuria or hematuria [] Musculoskeletal: Denies back pain or joint pain [] Integument: Denies rash or skin lesions [] Neurologic: Denies headache, focal weakness or sensory changes [] Endocrine: Denies polyuria or polydipsia [] All other systems were reviewed and found to be within normal limits, except as documented in this note. Allergies Allergies Allergies Coded Allergies Type Severity Reaction Last Updated Verified onion Allergy Intermediate Hives 07/25/17 Yes strawberry Allergy Intermediate SWELLS UP 08/25/15 Yes Physical Exam Physical Exam Constitutional: Well developed, well nourished, no acute distress, non-toxic appearance. [] HENT: Normocephalic, atraumatic, bilateral external ears normal, oropharynx moist, no oral exudates, nose normal. [] Eyes: PERRLA, EOMI, conjunctiva normal, no discharge. [] Neck: Normal range of motion, no tenderness, supple, no stridor. [] Cardiovascular:Heart rate regular rhythm, no murmur [] Lungs & Thorax: Very mild apical wheeze otherwise clear to auscultation with good air movement[] Abdomen: Bowel sounds normal, soft, no tenderness, no masses, no pulsatile masses. [] Skin: Warm, dry, no erythema, no rash. [] Back: No tenderness, no CVA tenderness. [] Extremities: No tenderness, no cyanosis, no clubbing, ROM intact, no edema. [] Neurologic: Alert and oriented X 3, normal motor function, normal sensory function, no focal deficits noted. [] Psychologic: Anxious. [] EKG EKG [] Radiology/Procedures Radiology/Procedures [] Course & Med Decision Making Course & Med Decision Making Pertinent Labs and Imaging studies reviewed. (See chart for details) [] Dragon Disclaimer Dragon Disclaimer This electronic medical record was generated, in whole or in part, using a voice recognition dictation system. Departure Departure Impression: Primary Impression: Acute bronchitis Disposition: HOME, SELF-CARE Condition: STABLE Referrals: UNKNOWN PCP NAME (PCP) Patient Instructions: Acute Bronchitis Additional Instructions: Return to the emergency department with any new or concerning symptoms Scripts Prednisone (PREDNISONE) 20 Mg Tablet 3 TAB PO DAILY PRN for COUGH for 5 Days, #15 TAB Prov: RADHA SANCHEZ DO 02/15/20 Problem Qualifiers Primary Impression: Acute bronchitis Bronchitis organism: unspecified organism Qualified Codes: J20.9 - Acute bronchitis, unspecified RADHA SANCHEZ DO Feb 15, 2020 19:01
[2020-02-15] MEDS: predniSONE 20 MG TABLET PO ONE (19:13)
== END 2020-02-15 19:20 | disposition home or self-care (01) ==
LOC: ER 18:41
DX: J20.9 Acute bronchitis, unspecified (principal); R05 Cough; R06.02 Shortness of breath; R09.81 Nasal congestion; Z91.018 Allergy to other foods; J45.909 Unspecified asthma, uncomplicated; E11.9 Type 2 diabetes mellitus without complications; E66.9 Obesity, unspecified; Z68.41 Body mass index [BMI] 40.0-44.9, adult; Z90.49 Acquired absence of other specified parts of digestive tract; Z98.890 Other specified postprocedural states
CPT/HCPCS: 99283; J7512

== ENCOUNTER 2020-03-10 14:53 | Emergency (ER) | payer MEDICAID, MEDICARE ==
[~2020-03-10] VITALS: Ht 162.6 cm; Wt 109.0 kg
[2020-03-10] MEDS ORDERED: HYDROcodone/APAP 5/325MG 1 TAB TABLET PO ONE (15:00)
--- NOTE | 2020-03-10 15:19 | PHYS DOC ---
Past Medical History Past Medical History: Asthma, Bronchitis, Diabetes-Type II Additional Past Medical Histor: OBESITY, LUPUS, bronchitis Past Surgical History: No Surgical History, Cholecystectomy, Additional Past Surgical Histo: D&C, X2 Smoking Status: Never Smoker Alcohol Use: None Drug Use: None General Adult EDM: Chief Complaint: KNEE INJURY HPI: HPI: Patient is a 35 year old female who presents with has a wood frame that helps hold off her bed and last night she bumped into it with her left knee and upper tib-fib. Patient states she can walk but is very painful and is very painful to move it. She states she can move it but is very painful. She rates her pain a 10 out of 10. Patient is very tearful. Review of Systems: Review of Systems: Musculoskeletal: Denies back pain. Left knee joint pain. [] Heart Score: Risk Factors: Risk Factors: DM, Current or recent (<one month) smoker, HTN, HLP, family hi story of CAD, obesity. Risk Scores: Score 0 - 3: 2.5% MACE over next 6 weeks - Discharge Home Score 4 - 6: 20.3% MACE over next 6 weeks - Admit for Clinical Observation Score 7 - 10: 72.7% MACE over next 6 weeks - Early Invasive Strategies Current Medications: Current Medications Medications (Trade) Dose Ordered Sig/Prem Start Time Stop Time Status Last Admin Dose Admin Acetaminophen/ Hydrocodone Bitart (Lortab 5/325) 1 tab 1X ONCE 03/10/20 15:00 03/10/20 15:07 DC Allergies: Allergies: Allergies Coded Allergies Type Severity Reaction Last Updated Verified onion Allergy Intermediate Hives 07/25/17 Yes strawberry Allergy Intermediate SWELLS UP 08/25/15 Yes Physical Exam: PE: Constitutional: Well developed, well nourished, no acute distress, non-toxic appearance. [] HENT: Normocephalic, atraumatic, bilateral external ears normal, oropharynx moist, no oral exudates, nose normal. [] Eyes: PERRLA, EOMI, conjunctiva normal, no discharge. [] Neck: Normal range of motion, no tenderness, supple, no stridor. [] Cardiovascular:Heart rate regular rhythm, no murmur [] Lungs & Thorax: Bilateral breath sounds clear to auscultation [] Abdomen: Bowel sounds normal, soft, no tenderness, no masses, no pulsatile masses. [] Skin: Warm, dry, no erythema, no rash. Left anterior knee bruising [] Back: No tenderness, no CVA tenderness. [] Extremities: Left anterior knee and upper tib fib tenderness, no cyanosis, no clubbing, Left knee ROM not intact, Left knee and upper tib fib 2+ edema. [] Neurologic: Alert and oriented X 3, normal motor function, normal sensory function, no focal deficits noted. [] Psychologic: Affect normal, judgement normal, mood normal. [] Current Patient Data: Vital Signs: Vital Signs Date Time Temp Pulse Resp B/P (MAP) Pulse Ox O2 Delivery O2 Flow Rate FiO2 03/10/20 15:03 98.6 99 18 168/117 (134) 97 Room Air 98.6 EKG: EKG: [] Radiology/Procedures: Radiology/Procedures: [] Impression: [facility] [address] [place], [place] [id number] IMAGING REPORT Signed PATIENT: NICO KAPOOR ACCOUNT: [id number] : 1985 LOCATION: ER AGE: 35 SEX: F EXAM STATUS: REG ER ORD. PHYSICIAN: EDSON MCCLELLAN APRN REASON: PAIN, HIT ON BED FRAME PROCEDURE: KNEE LEFT 3V Exam: Left knee 3 views. Left tibia and fibula 2 views INDICATION: Pain TECHNIQUE: Frontal and lateral views of the left knee. Frontal and lateral views of the left tibia and fibula Comparisons: None FINDINGS: Left tibia fibula: Bone mineralization is normal. No acute or healed fractures. Soft tissues are unremarkable. Joint spaces are well-maintained. Left knee: Bone mineralization is normal. No acute or healed fractures. Soft tissues are unremarkable. Joint spaces are well-maintained. IMPRESSION: 1. No acute osseous abnormality of the left knee. 2. No acute osseous abnormality of the left tibia and fibula. Electronically signed by: Jonna Tijerina MD (03/10/2020 4:35 PM) [id number] DICTATED and SIGNED BY: JONNA TIJERINA MD DATE: 03/10/20 3383 Course & Med Decision Making: Course & Med Decision Making Pertinent Labs and Imaging studies reviewed. (See chart for details) Patient has bruising and 2+ swelling to her anterior knee and upper tib-fib. Tenderness to the anterior knee and upper tib-fib. No deformity seen or felt. Skin pink warm and dry. Popliteal pulse strong present. No joint laxity. Patient does resist against me as when I try to move the knee joint. Patient can wiggle her toes and she has full range of motion of the ankle. No calf tenderness. No tenderness to the back of the knee or lateral or medial knee. Patient placed in knee immobilizer. She can follow-up with orthopedics in the next week. She will also get crutches. [] Dragon Disclaimer: Dragon Disclaimer: This electronic medical record was generated, in whole or in part, using a voice recognition dictation system. Departure Departure Impression: Primary Impression: Knee pain, left Qualified Codes: M25.562 - Pain in left knee Disposition: 01 HOME, SELF-CARE Condition: STABLE Referrals: NOAM SANCHEZ MD (PCP) CHE ADRIAN MD Patient Instructions: Contusion, [id number] Additional Instructions: Take medication with food and as prescribed. Do not operate any heavy machinery or drink while on the medication. You can also use ice and elevation to help with pain. Follow-up with orthopedics as soon as possible. Scripts Hydrocodone/Apap 5-325 (NORCO 5-325 TABLET) 1 Each Tablet 1 TAB PO PRN Q6HRS PRN for PAIN, #10 TAB 0 Refills Prov: EDSON MCCLELLAN APRN 03/10/20 EDSON MCCLELLAN APRN Mar 10, 2020 15:19
--- NOTE | 2020-03-10 16:38 | RAD ---
Exam: Left knee 3 views. Left tibia and fibula 2 views INDICATION: Pain TECHNIQUE: Frontal and lateral views of the left knee. Frontal and lateral views of the left tibia and fibula Comparisons: None FINDINGS: Left tibia fibula: Bone mineralization is normal. No acute or healed fractures. Soft tissues are unremarkable. Joint spaces are well-maintained. Left knee: Bone mineralization is normal. No acute or healed fractures. Soft tissues are unremarkable. Joint spaces are well-maintained. IMPRESSION: 1. No acute osseous abnormality of the left knee. 2. No acute osseous abnormality of the left tibia and fibula. Electronically signed by: Jonna Wallis MD (03/10/2020 4:35 PM) [id number]
[2020-03-10] MEDS ORDERED: HYDR-3164 PO (17:01)
== END 2020-03-10 17:30 | disposition home or self-care (01) ==
LOC: ER 14:53
DX: M25.562 Pain in left knee (principal); J45.909 Unspecified asthma, uncomplicated; E11.9 Type 2 diabetes mellitus without complications; Z90.89 Acquired absence of other organs; Z98.890 Other specified postprocedural states; Z91.018 Allergy to other foods
CPT/HCPCS: 29505; 73562; 73590; 99284

== ENCOUNTER 2020-04-12 14:19 | Emergency (ER) | payer SELFPAY ==
[~2020-04-12] VITALS: Ht 162.6 cm; Wt 109.0 kg
[2020-04-12 14:38] VITALS: BP 146/80
--- NOTE | 2020-04-12 15:07 | PHYS DOC ---
Past Medical History Past Medical History: Asthma, Bronchitis, Diabetes-Type II Additional Past Medical Histor: OBESITY, LUPUS, bronchitis Past Surgical History: No Surgical History, Cholecystectomy, Additional Past Surgical Histo: D&C, X2 Smoking Status: Never Smoker Alcohol Use: None Drug Use: None General Adult EDM: Chief Complaint: LOWER EXT PAIN HPI: HPI: Patient is a 35 year old female who presents with I saw this patient on March 10 after she hit her left knee and meléndez against a wooden bed frame. X-rays of her tib-fib and left knee were negative for any acute findings. Patient had a appointment with Dr. Ramirez for follow-up on April 09 of which she states that work made her stay late so she missed appointment. 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 She states the last 2 days have been very bad. Patient is tearful. She is ambulatory with a steady gait. Review of Systems: Review of Systems: Musculoskeletal: Denies back pain. Left knee and meléndez joint pain. [] Heart Score: Risk Factors: Risk Factors: DM, Current or recent (<one month) smoker, HTN, HLP, family history of CAD, obesity. Risk Scores: Score 0 - 3: 2.5% MACE over next 6 weeks - Discharge Home Score 4 - 6: 20.3% MACE over next 6 weeks - Admit for Clinical Observation Score 7 - 10: 72.7% MACE over next 6 weeks - Early Invasive Strategies Allergies: Allergies: Allergies Coded Allergies Type Severity Reaction Last Updated Verified onion Allergy Intermediate Hives 07/25/17 Yes strawberry Allergy Intermediate SWELLS UP 08/25/15 Yes Physical Exam: PE: Constitutional: Well developed, well nourished, no acute distress, non-toxic appearance. [] HENT: Normocephalic, atraumatic, bilateral external ears normal, oropharynx moist, no oral exudates, nose normal. [] Eyes: PERRLA, EOMI, conjunctiva normal, no discharge. [] Neck: Normal range of motion, no tenderness, supple, no stridor. [] Cardiovascular:Heart rate regular rhythm, no murmur [] Lungs & Thorax: Bilateral breath sounds clear to auscultation [] Abdomen: Bowel sounds normal, soft, no tenderness, no masses, no pulsatile masses. [] Skin: Warm, dry, no erythema, no rash. [] Back: No tenderness, no CVA tenderness. [] Extremities: Left knee and meléndez tenderness, no cyanosis, no clubbing, limited ROM left knee , no edema. [] Neurologic: Alert and oriented X 3, normal motor function, normal sensory function, no focal deficits noted. [] Psychologic: Affect normal, judgement normal, mood normal. [] Current Patient Data: Vital Signs: Vital Signs Date Time Temp Pulse Resp B/P (MAP) Pulse Ox O2 Delivery O2 Flow Rate FiO2 04/12/20 14:38 98.7 80 16 146/80 (102) 98 Room Air 98.7 EKG: EKG: [] Radiology/Procedures: Radiology/Procedures: [] Impression: [facility] [address] [place] [address] IMAGING REPORT Signed PATIENT: NICO KAPOOR ACCOUNT: [id number] : 1985 LOCATION: ER AGE: 35 SEX: F EXAM STATUS: REG ER ORD. PHYSICIAN: EDSON MCCLELLAN APRN REASON: pain, left knee pain, pt fell 3 weeks ago PROCEDURE: KNEE LEFT 3V Exam: Left knee 3 views. Left tibia fibula 2 views INDICATION: Left knee pain fall 3 weeks ago TECHNIQUE: Frontal, lateral and oblique views of the left knee. Frontal and lateral views of the left tibia and fibula. Comparisons: 03/10/2020 FINDINGS: Knee: Bone mineralization is normal. No acute or healed fractures. Soft tissues are unremarkable. Joint spaces are well-maintained. Soft tissues are unremarkable. Tib-fib: Bone mineralization is normal. No acute or healed fractures. Soft tissues are unremarkable. Joint spaces are well-maintained. IMPRESSION: 1. No acute osseous abnormality of the left knee. 2. No acute osseous abnormality of the left tibia. Electronically signed by: Jonna Tijerina MD (04/12/2020 3:30 PM) [id number] DICTATED and SIGNED BY: JONNA TIJERINA MD DATE: 04/12/20 5340 Course & Med Decision Making: Course & Med Decision Making Pertinent Labs and Imaging studies reviewed. (See chart for details) Tenderness to lateral, medial, posterior and anterior knee no swelling or calf tenderness to the extremity. Patient is able to bend the extremity but is painful. Patient has been going to work and working on her feet. Patient states the pain is sharp and shooting. No laxity in the joint. Pedal pulses strong and present. Cap refill less than 3 seconds. No laxity in any joints. No swelling to any joint. No unilateral swelling. No symptoms that would point to DVT. Patient states this is the same pain she has been having since the injury occurred. [] Dragon Disclaimer: Dragon Disclaimer: This electronic medical record was generated, in whole or in part, using a voice recognition dictation system. Departure Departure Impression: Primary Impression: Left leg pain Disposition: HOME, SELF-CARE Condition: STABLE Referrals: NOAM SANCHEZ MD (PCP) BLAKE RAMIREZ MD Patient Instructions: Contusion, [id number] Additional Instructions: Follow-up with Dr. Ramirez as you are scheduled. Take medication as prescribed. Do not operate heavy machinery or drink Alcohol. Scripts Acetaminophen With Codeine (TYLENOL WITH CODEINE #3 TABLET) 1 Each Tablet 1 TAB PO PRN Q6HRS PRN for pain MDD 4 Tablet(s), #15 TAB 0 Refills Prov: EDSON MCCLELLAN APRN 04/12/20 EDSON MCCLELLAN APRN Apr 12, 2020 15:07
[2020-04-12] MEDS ORDERED: HYDROcodone/APAP 5/325MG 1 TAB TABLET PO ONE (15:15)
--- NOTE | 2020-04-12 15:32 | RAD ---
Exam: Left knee 3 views. Left tibia fibula 2 views INDICATION: Left knee pain fall 3 weeks ago TECHNIQUE: Frontal, lateral and oblique views of the left knee. Frontal and lateral views of the left tibia and fibula. Comparisons: 03/10/2020 FINDINGS: Knee: Bone mineralization is normal. No acute or healed fractures. Soft tissues are unremarkable. Joint spaces are well-maintained. Soft tissues are unremarkable. Tib-fib: Bone mineralization is normal. No acute or healed fractures. Soft tissues are unremarkable. Joint spaces are well-maintained. IMPRESSION: 1. No acute osseous abnormality of the left knee. 2. No acute osseous abnormality of the left tibia. Electronically signed by: Jonna Wallis MD (04/12/2020 3:30 PM) [id number]
[2020-04-12] MEDS ORDERED: ACET-704 PO (15:44)
[2020-04-12] MEDS ORDERED: ORPHENADRINE CITRATE 60 MG/2 ML VIAL. IM ONE (15:45)
== END 2020-04-12 16:12 | disposition home or self-care (01) ==
LOC: ER 14:19
DX: M25.562 Pain in left knee (principal); M79.662 Pain in left lower leg; E11.9 Type 2 diabetes mellitus without complications; J45.909 Unspecified asthma, uncomplicated; E66.9 Obesity, unspecified; Z68.41 Body mass index [BMI] 40.0-44.9, adult; Z91.018 Allergy to other foods
CPT/HCPCS: 73562; 73590; 96372; 99284; J2360

== ENCOUNTER 2020-04-27 09:18 | Emergency (ER) | payer SELFPAY ==
[~2020-04-27] VITALS: Ht 165.1 cm; Wt 117.2 kg
[2020-04-27] MEDS ORDERED: ONDANSETRON PF 4 MG/2 ML VIAL. IVP ONE (10:00)
[2020-04-27] MEDS ORDERED: KETOROLAC 15 MG/ML VIAL. IVP ONE (10:00)
[2020-04-27] MEDS ORDERED: FAMOTIDINE 20 MG/2 ML VIAL IVP ONE (10:00)
[2020-04-27] MEDS ORDERED: IV NORMAL SALINE 1000ML BAG 1,000 ML IV ONE (10:00)
[2020-04-27 10:21] LABS: BILIRUBIN,URINE NEGATIVE (NEG); CLARITY,URINE CLEAR; COLOR,URINE YELLOW; NITRITE,URINE NEGATIVE (NEG); PROTEIN,URINE NEGATIVE (NEG-TRACE); UROBILINOGEN,URINE 0.2 mg/dL (0.2 mg/dL)
[2020-04-27 10:36] LABS: BASO # 0.1 x10^3/uL (0.0-0.2); BASO % 1 % (0-3); EOS # 0.1 x10^3/uL (0.0-0.7); EOS % 2 % (0-3); HEMATOCRIT 37.5 % (36.0-47.0); HEMOGLOBIN 12.9 g/dL (12.0-15.5); LYMPH % 20 % (24-48); MEAN CORPUSCULAR HEMOGLOBIN 31 pg (25-35); MEAN CORPUSCULAR HGB CONC 34 g/dL (31-37); MEAN CORPUSCULAR VOLUME 90 fL (79-100); MONO # 0.7 x10^3/uL (0.0-1.1); MONO % 7 % (0-9); NEUT # 7.2 x10^3/uL (1.8-7.7); NEUT % 71 % (31-73); PLATELET COUNT 210 x10^3/uL (140-400); RED BLOOD COUNT 4.18 x10^6/uL (3.50-5.40); RED CELL DISTRIBUTION WIDTH 13.2 % (11.5-14.5); WHITE BLOOD COUNT 10.1 x10^3/uL (4.0-11.0)
[2020-04-27 10:39] LABS: SQUAMOUS EPITHELIAL CELL,UR MANY /LPF
[2020-04-27 10:40] LABS: BACTERIA,URINE FEW /HPF (0-FEW); RBC,URINE OCC /HPF (0-2)
[2020-04-27 10:51] LABS: CALCIUM 8.7 mg/dL (8.5-10.1); CREATININE 0.9 mg/dL (0.6-1.0); GFR 86.7; POTASSIUM 3.8 mmol/L (3.5-5.1)
[2020-04-27 11:00] LABS: ALBUMIN 3.6 g/dL (3.4-5.0); MAGNESIUM 1.4 mg/dL (1.8-2.4); TOTAL BILIRUBIN 0.5 mg/dL (0.2-1.0); TOTAL PROTEIN 7.3 g/dL (6.4-8.2)
[2020-04-27] MEDS ORDERED: IOHEXOL 300 MG/ML 100ML VIAL. IV ONE (11:00)
[2020-04-27] MEDS ORDERED: CONTRAST GIVEN. MC PRN (11:00)
[2020-04-27] MEDS ORDERED: MAGNESIUM SULFATE 2GM 50 ML IV ONE (11:15)
--- NOTE | 2020-04-27 11:23 | RAD ---
CT abdomen and pelvis with contrast History: Abdominal pain, nausea, vomiting, diarrhea Technique: After the administration of intravenous contrast, CT imaging was performed of the abdomen and pelvis. No oral contrast was given. Multiplanar images are reviewed. Exposure: One or more of the following individualized dose reduction techniques were utilized for this examination: 1. Automated exposure control 2. Adjustment of the mA and/or kV according to patient size 3. Use of iterative reconstruction technique. Comparison: November 03, 2012 Findings: There is no significant abnormality of the visualized lung bases. There is no significant abnormality of the liver, spleen, pancreas, adrenal glands. Both kidneys enhance without hydronephrosis. There has been cholecystectomy. Accurate evaluation of bowel is limited without oral contrast. There is no significant inflammatory change adjacent to the bowel. There is no evidence of bowel obstruction, free fluid, or free air. Normal caliber appendix is visualized without adjacent inflammatory-type change. There is probable mass of the left uterine fundus otherwise difficult to characterize, grossly estimated about 4.5 cm. There is some adjacent density near the left uterine fundus although probably the left adnexa. Impression: 1. There is no significant inflammatory type change about the bowel, no CT evidence of acute appendicitis. 2. There is probable mass of the left uterine fundus, some adjacent density near the left uterine fundus which may be the left adnexa. Electronically signed by: Ethan Alan MD (04/27/2020 11:20 AM) [id number]
[2020-04-27 11:34] VITALS: BP 149/77
--- NOTE | 2020-04-27 11:34 | PHYS DOC ---
Past Medical History Past Medical History: Asthma, Bronchitis, Diabetes-Type II Additional Past Medical Histor: OBESITY, LUPUS, bronchitis Past Surgical History: Cholecystectomy, Additional Past Surgical Histo: D&C, X2 Smoking Status: Never Smoker Alcohol Use: None Drug Use: None General Adult EDM: Chief Complaint: ABDOMINAL PAIN HPI: HPI: Patient is a 35-year-old female that presents with report of nausea, vomiting, diarrhea, and cramping abdominal pain x3 days. Patient reports concerned that it might be secondary to a "chicken sandwich "that she purchased from [employer]. Patient denies known sick contacts. Denies fever or chills. Denies trauma. Review of Systems: Review of Systems: Constitutional: Denies fever or chills Eyes: Denies redness or eye pain HENT: Denies nasal congestion or sore throat Respiratory: Denies cough or shortness of breath Cardiovascular: Denies chest pain or palpitations GI: Reports abdominal pain, nausea, vomiting, and diarrhea : Denies dysuria or hematuria Musculoskeletal: Denies back pain or joint pain Integument: Denies rash or skin lesions Neurologic: Denies headache, focal weakness or sensory changes Complete systems were reviewed and found to be within normal limits, except as documented in this note. Current Medications: Current Medications Medications (Trade) Dose Ordered Sig/Prem Start Time Stop Time Status Last Admin Dose Admin Famotidine (Pepcid Vial) 20 mg 1X ONCE 04/27/20 10:00 04/27/20 10:01 DC 04/27/20 10:49 20 MG Info (CONTRAST GIVEN -- Rx MONITORING) 1 each PRN DAILY PRN 04/27/20 11:00 04/29/20 10:59 Iohexol (Omnipaque 300 Mg/ml) 75 ml 1X ONCE 04/27/20 11:00 04/27/20 11:01 DC 04/27/20 11:01 75 ML Ketorolac Tromethamine (Toradol 15mg Vial) 15 mg 1X ONCE 04/27/20 10:00 04/27/20 10:01 DC 04/27/20 10:49 15 MG Magnesium Sulfate 50 ml @ 25 mls/hr 1X ONCE 04/27/20 11:15 04/27/20 13:14 04/27/20 11:16 25 MLS/HR Ondansetron HCl (Zofran) 4 mg 1X ONCE 04/27/20 10:00 04/27/20 10:01 DC 04/27/20 10:49 4 MG Sodium Chloride 1,000 ml @ 1,000 mls/hr 1X ONCE 04/27/20 10:00 04/27/20 10:59 DC 04/27/20 10:49 1,000 MLS/HR Allergies: Allergies: Allergies Coded Allergies Type Severity Reaction Last Updated Verified onion Allergy Intermediate Hives 07/25/17 Yes strawberry Allergy Intermediate SWELLS UP 08/25/15 Yes Physical Exam: PE: Constitutional: Well developed, well nourished, no acute distress, non-toxic appearance HENT: Normocephalic, atraumatic, oropharynx moist Eyes: Conjunctiva normal, no discharge Neck: Normal range of motion, no tenderness, supple Lungs & Thorax: No respiratory distress, equal chest rise and fall Abdomen: Soft, diffuse tenderness, mild distention, no guarding/rebound tenderness Skin: Warm, dry, no erythema, no rash Back: No tenderness, no CVA tenderness Extremities: No tenderness, ROM intact, no edema Neurologic: Alert and oriented X 3, no focal deficits noted Psychologic: Affect normal, judgment normal Current Patient Data: Labs: Laboratory Tests Test 04/27/20 10:00 04/27/20 10:14 04/27/20 10:25 Urine Collection Type Void Urine Color Yellow Urine Clarity Clear Urine pH 5.0 (<5.0-8.0) Urine Specific [place] >=1.030 (1.000-1.030) Urine Protein Negative mg/dL (NEG-TRACE) Urine Glucose (UA) Negative mg/dL (NEG) Urine Ketones (Stick) Negative mg/dL (NEG) Urine Blood Trace (NEG) Urine Nitrite Negative (NEG) Urine Bilirubin Negative (NEG) Urine Urobilinogen Dipstick 0.2 mg/dL (0.2 mg/dL) Urine Leukocyte Esterase Negative (NEG) Urine RBC Occ /HPF (0-2) Urine WBC 1-4 /HPF (0-4) Urine Squamous Epithelial Cells Many /LPF Urine Bacteria Few /HPF (0-FEW) Urine Mucus Marked /LPF POC Urine HCG, Qualitative Hcg negative (Negative) White Blood Count 10.1 x10^3/uL (4.0-11.0) Red Blood Count 4.18 x10^6/uL (3.50-5.40) Hemoglobin 12.9 g/dL (12.0-15.5) Hematocrit 37.5 % (36.0-47.0) Mean Corpuscular Volume 90 fL (79-100) Mean Corpuscular Hemoglobin 31 pg (25-35) Mean Corpuscular Hemoglobin Concent 34 g/dL (31-37) Red Cell Distribution Width 13.2 % (11.5-14.5) Platelet Count 210 x10^3/uL (140-400) Neutrophils (%) (Auto) 71 % (31-73) Lymphocytes (%) (Auto) 20 % (24-48) L Monocytes (%) (Auto) 7 % (0-9) Eosinophils (%) (Auto) 2 % (0-3) Basophils (%) (Auto) 1 % (0-3) Neutrophils # (Auto) 7.2 x10^3/uL (1.8-7.7) Lymphocytes # (Auto) 2.0 x10^3/uL (1.0-4.8) Monocytes # (Auto) 0.7 x10^3/uL (0.0-1.1) Eosinophils # (Auto) 0.1 x10^3/uL (0.0-0.7) Basophils # (Auto) 0.1 x10^3/uL (0.0-0.2) Sodium Level 140 mmol/L (136-145) Potassium Level 3.8 mmol/L (3.5-5.1) Chloride Level 104 mmol/L (98-107) Carbon Dioxide Level 28 mmol/L (21-32) Anion Gap 8 (6-14) Blood Urea Nitrogen 11 mg/dL (7-20) Creatinine 0.9 mg/dL (0.6-1.0) Estimated GFR (Cockcroft-Gault) 86.7 BUN/Creatinine Ratio 12 (6-20) Glucose Level 137 mg/dL (70-99) H Calcium Level 8.7 mg/dL (8.5-10.1) Magnesium Level 1.4 mg/dL (1.8-2.4) L Total Bilirubin 0.5 mg/dL (0.2-1.0) Aspartate Amino Transferase (AST) 25 U/L (15-37) Alanine Aminotransferase (ALT) 32 U/L (14-59) Alkaline Phosphatase 59 U/L (46-116) Total Protein 7.3 g/dL (6.4-8.2) Albumin 3.6 g/dL (3.4-5.0) Albumin/Globulin Ratio 1.0 (1.0-1.7) Lipase 104 U/L (73-393) Laboratory Tests 04/27/20 10:25 Laboratory Tests 04/27/20 10:25 Vital Signs: Vital Signs Date Time Temp Pulse Resp B/P (MAP) Pulse Ox O2 Delivery O2 Flow Rate FiO2 04/27/20 11:04 77 141/63 (89) 100 Room Air 04/27/20 09:56 98.3 17 98.3 EKG: EKG: [] Radiology/Procedures: Radiology/Procedures: PROCEDURE: CT ABD PELV W/ IV CONTRST ONLY CT abdomen and pelvis with contrast History: Abdominal pain, nausea, vomiting, diarrhea Technique: After the administration of intravenous contrast, CT imaging was performed of the abdomen and pelvis. No oral contrast was given. Multiplanar images are reviewed. Exposure: One or more of the following individualized dose reduction techniques were utilized for this examination: 1. Automated exposure control 2. Adjustment of the mA and/or kV according to patient size 3. Use of iterative reconstruction technique. Comparison: November 03, 2012 Findings: There is no significant abnormality of the visualized lung bases. There is no significant abnormality of the liver, spleen, pancreas, adrenal glands. Both kidneys enhance without hydronephrosis. There has been cholecystectomy. Accurate evaluation of bowel is limited without oral contrast. There is no significant inflammatory change adjacent to the bowel. There is no evidence of bowel obstruction, free fluid, or free air. Normal caliber appendix is visualized without adjacent inflammatory-type change. There is probable mass of the left uterine fundus otherwise difficult to characterize, grossly estimated about 4.5 cm. There is some adjacent density near the left uterine fundus although probably the left adnexa. Impression: 1. There is no significant inflammatory type change about the bowel, no CT evidence of acute appendicitis. 2. There is probable mass of the left uterine fundus, some adjacent density near the left uterine fundus which may be the left adnexa. Electronically signed by: Ethan Alan MD (04/27/2020 11:20 AM) [id number] Course & Med Decision Making: Course & Med Decision Making Pertinent Labs and Imaging studies reviewed. (See chart for details) Patient presents with 3-day history of cramping abdominal pain with associated nausea, vomiting, and diarrhea. Labs obtained and posted to chart. Hypomagnesemia addressed. IV fluid hydration given. Pain/nausea addressed. CT imaging without acute process. Incidental uterine fibroid noted. Patient stable for discharge with outpatient follow-up with PCP. Discussed fi ndings and plan with patient, who acknowledges understanding and agreement. Heidi Disclaimer: Heidi Disclaimer: This electronic medical record was generated, in whole or in part, using a voice recognition dictation system. Departure Departure Impression: Primary Impression: Abdominal pain Qualified Codes: R10.13 - Epigastric pain Additional Impressions: Hypomagnesemia Nausea vomiting and diarrhea Disposition: HOME, SELF-CARE Condition: STABLE Referrals: NOAM SANCHEZ MD (PCP) MONI PUCKETT MD Patient Instructions: Abdominal Pain (Nonspecific), Clear Liquid Diet, [id number], Diarrhea, [id number], Diet for Diarrhea, Adult, Hypomagnesemia, Nausea and Vomiting, Olhf-is-Lyje Scripts Famotidine (PEPCID) 20 Mg Tablet 20 MG PO BID, #10 TAB Prov: DAYA SHAH DO 04/27/20 Ondansetron (ONDANSETRON ODT) 4 Mg Tab.rapdis 1 TAB PO PRN Q6-8HRS PRN for NAUSEA, #16 TAB Prov: DAYA SHAH DO 04/27/20 Hyoscyamine Sulfate (LEVSIN-SL) 0.125 Mg Tab.subl 0.125 MG SL Q4-6HRS PRN for PAIN, #20 TAB Prov: DAYA SHAH DO 04/27/20 Justicifation of Admission Dx: Justifications for Admission: Justification of Admission Dx: N/A DAYA SHAH DO Apr 27, 2020 11:34
[2020-04-27] MEDS ORDERED: HYOS0.1265 SL (11:41)
[2020-04-27] MEDS ORDERED: FAMO-63 PO (11:41)
[2020-04-27] MEDS ORDERED: ONDA4TAB12 PO (11:41)
== END 2020-04-27 12:18 | disposition home or self-care (01) ==
LOC: ER 09:18
DX: R10.13 Epigastric pain (principal); R11.2 Nausea with vomiting, unspecified; R19.7 Diarrhea, unspecified; E83.42 Hypomagnesemia; E11.9 Type 2 diabetes mellitus without complications; J45.909 Unspecified asthma, uncomplicated; E66.9 Obesity, unspecified; Z68.41 Body mass index [BMI] 40.0-44.9, adult; Z90.49 Acquired absence of other specified parts of digestive tract; Z91.018 Allergy to other foods
CPT/HCPCS: 36415; 74177; 80053; 81001; 81025; 83690; 83735; 85025; 96365; 96375; 99285; J1885; J2405; J3475; J3490; J7030; Q9967; 96361

== ENCOUNTER 2020-05-10 11:35 | Emergency (ER) | payer SELFPAY ==
[~2020-05-10] VITALS: Ht 165.1 cm; Wt 111.8 kg
[~2020-05-10 11:35] MED LIST changes: -CETI10TA24 PO; +CETI10TA74 PO; +FAMO-63 PO; +HYOS0.1265 SL
[2020-05-10] MEDS ORDERED: DEXAMETHASONE 4 MG TABLET PO ONE (12:45)
[2020-05-10] MEDS ORDERED: HYDROcodone/APAP 5/325MG 1 TAB TABLET PO ONE (12:45)
[2020-05-10] MEDS ORDERED: IBUP-1007 PO (12:55)
[2020-05-10] MEDS ORDERED: HYDR-3164 PO (12:55)
[2020-05-10] MEDS ORDERED: AMOX500C PO (12:55)
--- NOTE | 2020-05-10 12:55 | PHYS DOC ---
Past Medical History Past Medical History: Asthma, Bronchitis, Diabetes-Type II, Other Additional Past Medical Histor: OBESITY, LUPUS ([employer]SON MCCLELLAN [employer]) Past Surgical History: Cholecystectomy, Additional Past Surgical Histo: D&C, X2 ([employer]CCLE[employer]) Smoking Status: Never Smoker Alcohol Use: None Drug Use: None ([employer] MCCLE[employer]) General Adult EDM: Chief Complaint: SORE THROAT HPI: HPI: Patient is a 35 year old Female who presents with Sunday began having a sore throat and bilateral ear pain. She denies nausea, vomiting, fever, shortness of breath, chest pain, cough, headache, dizziness, numbness or tingling, abdominal pain, diarrhea. She states she is been taking Tylenol of which she took last night and is not helping. She says she is also use Chloraseptic spray is not helping. Patient rates her pain a 10 out of 10. She states that her bilateral ears hurt down into her bilateral jaws and to her throat. She states that she can swallow food and water but is very painful. ([employer]SON MCCLELL[employer]) Review of Systems: Review of Systems: Constitutional: Denies fever or chills. [] Eyes: Denies change in visual acuity. [] HENT: Denies nasal congestion or sore throat. Bilateral ear pain and throat pain. [] Respiratory: Denies cough or shortness of breath. [] Cardiovascular: Denies chest pain or edema. [] GI: Denies abdominal pain, nausea, vomiting, bloody stools or diarrhea. [] : Denies dysuria. [] Musculoskeletal: Denies back pain or joint pain. [] Integument: Denies rash. [] Neurologic: Denies headache, focal weakness or sensory changes. [] Endocrine: Denies polyuria or polydipsia. [] Lymphatic: Denies swollen glands. [] Psychiatric: Denies depression or anxiety. [] ([employer]SON MCCLLELAN [employer] WORKER) Heart Score: Risk Factors: Risk Factors: DM, Current or recent (<one month) smoker, HTN, HLP, family history of CAD, obesity. Risk Scores: Score 0 - 3: 2.5% MACE over next 6 weeks - Discharge Home Score 4 - 6: 20.3% MACE over next 6 weeks - Admit for Clinical Observation Score 7 - 10: 72.7% MACE over next 6 weeks - Early Invasive Strategies (EDSON MCCLELLAN APRN) Allergies: Allergies: Allergies Coded Allergies Type Severity Reaction Last Updated Verified onion Allergy Intermediate Hives 07/25/17 Yes strawberry Allergy Intermediate SWELLS UP 08/25/15 Yes (EDSON MCCLELLAN APRN) Physical Exam: PE: Constitutional: Well developed, well nourished, no acute distress, non-toxic appearance. [] HENT: Normocephalic, atraumatic, bilateral external ears normal, oropharynx moist, no oral exudates, nose normal. No swelling or masses felt in the neck but tenderness with palpation. Bilateral tympanic's are reddened and tenderness with examination. [] Eyes: PERRLA, EOMI, conjunctiva normal, no discharge. [] Neck: Normal range of motion, no tenderness, supple, no stridor. [] Cardiovascular:Heart rate regular rhythm, no murmur [] Lungs & Thorax: Bilateral breath sounds clear to auscultation [] Abdomen: Bowel sounds normal, soft, no tenderness, no masses, no pulsatile masses. [] Skin: Warm, dry, no erythema, no rash. [] Back: No tenderness, no CVA tenderness. [] Extremities: No tenderness, no cyanosis, no clubbing, ROM intact, no edema. [] Neurologic: Alert and oriented X 3, normal motor function, normal sensory function, no focal deficits noted. [] Psychologic: Affect normal, judgement normal, mood normal. [] (EDSON MCCLELLAN APRN) Current Patient Data: Vital Signs: Vital Signs Date Time Temp Pulse Resp B/P (MAP) Pulse Ox O2 Delivery O2 Flow Rate FiO2 05/10/20 12:02 98.2 88 20 210/128 (155) 100 Room Air 98.2 (EDSON MCCLELLAN APRN) EKG: EKG: [] (EDSON MCCLELLAN APRN) Radiology/Procedures: Radiology/Procedures: [] (EDSON MCCLELLAN APRN) Course & Med Decision Making: Course & Med Decision Making Pertinent Labs and Imaging studies reviewed. (See chart for details) Patient is whispering because she states that talking makes her throat hurt worse. Throat is pink without exudates or swelling seen. Rapid strep is negative. Bilateral tympanic's reddened and tender with examination. No drainage from ears and tympanic's are intact. Lungs are clear to auscultation all lobes. Patient is crying. No trismus. Uvula midline. Patient is given viscous lidocaine, [place], dexamethasone. She will be sent home with an antibiotic and follow-up with her primary care provider. [] (EDSON MCCLELLAN APRN) Dragon Disclaimer: Dragon Disclaimer: This electronic medical record was generated, in whole or in part, using a voice recognition dictation system. (EDSON MCCLELLAN APRN) Departure Departure Impression: Primary Impression: Sore throat Additional Impression: Otitis media Qualified Codes: H66.003 - Acute suppurative otitis media without spontaneous rupture of ear drum, bilateral Disposition: HOME, SELF-CARE Condition: STABLE Referrals: UNKNOWN PCP NAME (PCP) Patient Instructions: Otitis Media, Adult, Sore Throat Additional Instructions: Follow-up with primary care provider. Take medications with food and as prescribed. Drink plenty of fluids. Scripts Ibuprofen (IBUPROFEN) 600 Mg Tablet 600 MG PO PRN Q6HRS PRN for INFLAMMATION, #20 TAB Prov: EDSON MCCLELLAN APRN 05/10/20 Hydrocodone/Apap 5-325 (NORCO 5-325 TABLET) 1 Each Tablet 1 TAB PO PRN Q6HRS PRN for PAIN, #10 TAB 0 Refills Prov: EDSON MCCLELLAN APRN 05/10/20 Amoxicillin (AMOXICILLIN) 500 Mg Capsule 1 CAP PO BID, #20 CAP Prov: EDSON MCCLELLAN APRN 05/10/20 Justicifation of Admission Dx: Justifications for Admission: Justification of Admission Dx: N/A (EDSON MCCLELLAN APRN) Attending Signature Attending Signature I have participated in the care of this patient and I have reviewed and agree with all pertinent clinical information above including history, exam, and recommendations. (JOANA MENDOZA DO) EDSON MCCLELLAN APRN May 10, 2020 12:55 JOANA MENDOZA DO May 10, 2020 16:05
[2020-05-10] MEDS ORDERED: LIDOCAINE 2% VISCOUS 15 ML SOLUTION. SWSW ONE (13:00)
[2020-05-10 13:27] VITALS: BP 149/93
== END 2020-05-10 13:34 | disposition home or self-care (01) ==
LOC: ER 11:35
DX: J02.9 Acute pharyngitis, unspecified (principal); H66.003 Acute suppurative otitis media without spontaneous rupture of ear drum, bilateral; J45.909 Unspecified asthma, uncomplicated; E11.9 Type 2 diabetes mellitus without complications; E66.9 Obesity, unspecified; Z68.41 Body mass index [BMI] 40.0-44.9, adult; Z90.49 Acquired absence of other specified parts of digestive tract; Z98.890 Other specified postprocedural states; Z91.018 Allergy to other foods
CPT/HCPCS: 87070; 87880; 99284; J8540

== ENCOUNTER 2020-05-23 09:58 | Emergency (ER) | payer SELFPAY ==
[~2020-05-23] VITALS: Ht 162.6 cm; Wt 115.0 kg
[~2020-05-23 09:58] MED LIST changes: +CETI10TA24 PO; -CETI10TA74 PO; +IBUP-1007 PO
[2020-05-23] MEDS ORDERED: DEXAMETHASONE 4 MG TABLET PO ONE (10:15)
[2020-05-23] MEDS ORDERED: FLUT100D IH (10:19)
[2020-05-23] MEDS ORDERED: ALBU2.5V8 IH (10:19)
[2020-05-23] MEDS ORDERED: ALBU2.5V14 NEB (10:19)
--- NOTE | 2020-05-23 10:20 | PHYS DOC ---
Past Medical History Past Medical History: Asthma, Bronchitis, Diabetes-Type II, Other Additional Past Medical Histor: OBESITY, LUPUS Past Surgical History: Cholecystectomy, Additional Past Surgical Histo: D&C, X2 Smoking Status: Never Smoker Alcohol Use: None Drug Use: None General Adult EDM: Chief Complaint: ASTHMA HPI: HPI: Patient is a 35 year old [f__sex] who presents with [] Review of Systems: Review of Systems: Constitutional: Denies fever or chills. [] Eyes: Denies change in visual acuity. [] HENT: Denies nasal congestion or sore throat. [] Respiratory: Denies cough or shortness of breath. [] Cardiovascular: Denies chest pain or edema. [] GI: Denies abdominal pain, nausea, vomiting, bloody stools or diarrhea. [] : Denies dysuria. [] Musculoskeletal: Denies back pain or joint pain. [] Integument: Denies rash. [] Neurologic: Denies headache, focal weakness or sensory changes. [] Endocrine: Denies polyuria or polydipsia. [] Lymphatic: Denies swollen glands. [] Psychiatric: Denies depression or anxiety. [] Heart Score: Risk Factors: Risk Factors: DM, Current or recent (<one month) smoker, HTN, HLP, family history of CAD, obesity. Risk Scores: Score 0 - 3: 2.5% MACE over next 6 weeks - Discharge Home Score 4 - 6: 20.3% MACE over next 6 weeks - Admit for Clinical Observation Score 7 - 10: 72.7% MACE over next 6 weeks - Early Invasive Strategies Current Medications: Current Medications Medications (Trade) Dose Ordered Sig/Prem Start Time Stop Time Status Last Admin Dose Admin Dexamethasone (Decadron) 10 mg 1X ONCE 05/23/20 10:15 05/23/20 10:16 Allergies: Allergies: Allergies Coded Allergies Type Severity Reaction Last Updated Verified onion Allergy Intermediate Hives 07/25/17 Yes strawberry Allergy Intermediate SWELLS UP 08/25/15 Yes Physical Exam: PE: Constitutional: Well developed, well nourished, no acute distress, non-toxic appearance. [] HENT: Normocephalic, atraumatic, bilateral external ears normal, oropharynx moist, no oral exudates, nose normal. [] Eyes: PERRLA, EOMI, conjunctiva normal, no discharge. [] Neck: Normal range of motion, no tenderness, supple, no stridor. [] Cardiovascular:Heart rate regular rhythm, no murmur [] Lungs & Thorax: Bilateral breath sounds clear to auscultation [] Abdomen: Bowel sounds normal, soft, no tenderness, no masses, no pulsatile masses. [] Skin: Warm, dry, no erythema, no rash. [] Back: No tenderness, no CVA tenderness. [] Extremities: No tenderness, no cyanosis, no clubbing, ROM intact, no edema. [] Neurologic: Alert and oriented X 3, normal motor function, normal sensory function, no focal deficits noted. [] Psychologic: Affect normal, judgement normal, mood normal. [] EKG: EKG: [] Radiology/Procedures: Radiology/Procedures: [] Course & Med Decision Making: Course & Med Decision Making Pertinent Labs and Imaging studies reviewed. (See chart for details) [] Dragon Disclaimer: Dragon Disclaimer: This electronic medical record was generated, in whole or in part, using a voice recognition dictation system. Departure Departure Impression: Primary Impression: Asthma exacerbation Qualified Codes: J45.21 - Mild intermittent asthma with (acute) exacerbation Additional Impression: Medication refill Disposition: HOME, SELF-CARE Condition: STABLE Referrals: UNKNOWN PCP NAME (PCP) SERENA KENDALL MD Patient Instructions: Asthma, Adult, [id number], Medication Refill, Emergency Department Scripts Fluticasone Propionate (FLOVENT 100MCG DISKUS) 100 Mcg Disk.w.dev 1 PUFF IH BID, #1 INHALER Prov: DAYA SHAH DO 05/23/20 Albuterol Sulfate (PROAIR HFA INHALER) 8.5 Gm Hfa.aer.ad 2 PUFF IH PRN Q4-6HRS PRN for wheezing, #1 INHALER 0 Refills Prov: DAYA SHAH DO 05/23/20 Albuterol Sulfate (ALBUTEROL SULFATE CONC NEB SOLN) 2.5 Mg/0.5 Ml Vial.neb 1 VIAL NEB Q4HRS PRN for WHEEZING, #60 VIAL Prov: DAYA SHAH DO 05/23/20 Justicifation of Admission Dx: Justifications for Admission: Justification of Admission Dx: N/A DAYA SHAH DO May 23, 2020 10:20
[2020-05-23 10:34] VITALS: BP 154/75
--- NOTE | 2020-05-23 10:37 | RAD ---
EXAM: CHEST 1 VIEW History: Cough COMPARISON: 12/15/2019 TECHNIQUE: Single portable radiograph of the chest FINDINGS: The cardiac silhouette is unremarkable. The lungs are clear bilaterally. The costophrenic sulci are clear and well demarcated. IMPRESSION: No radiographic evidence of an acute cardiopulmonary process. Electronically signed by: Chris Lemons MD (05/23/2020 10:34 AM) [id number]
== END 2020-05-23 10:36 | disposition home or self-care (01) ==
LOC: ER 09:58
DX: J45.21 Mild intermittent asthma with (acute) exacerbation (principal); Z76.0 Encounter for issue of repeat prescription; E11.9 Type 2 diabetes mellitus without complications; E66.9 Obesity, unspecified; Z68.41 Body mass index [BMI] 40.0-44.9, adult; Z91.018 Allergy to other foods
CPT/HCPCS: 71045; 99283

== ENCOUNTER 2020-07-12 07:37 | Emergency (ER) | payer MEDICARE ==
[~2020-07-12] VITALS: Ht 160 cm; Wt 109.0 kg
[~2020-07-12 07:37] MED LIST changes: +ALBU2.5V14 NEB; +ALBU2.5V8 IH; -CETI10TA24 PO; +CETI10TA74 PO; +FLUT100D IH
[2020-07-12 09:05] VITALS: BP 149/77
[2020-07-12] MEDS ORDERED: IPRATRPIUM/ALBUTEROL 0.5/2.5MG 3 ML NEBU. NEB ONE (09:15)
[2020-07-12] MEDS ORDERED: DEXAMETHASONE 4 MG TABLET PO ONE (09:15)
--- NOTE | 2020-07-12 10:03 | RAD ---
AP chest. HISTORY: Cough, short of air AP view was taken of the chest. Lungs are clear. Heart is normal in size. There is no pleural effusion. IMPRESSION: 1. No acute chest disease. Electronically signed by: Mateus Hogan MD (07/12/2020 10:00 AM) [id number]
[2020-07-12] MEDS ORDERED: ALBU2.5V8 IH (10:48)
--- NOTE | 2020-07-12 10:48 | PHYS DOC ---
Past Medical History Past Medical History: Asthma, Bronchitis, Diabetes-Type II, Other Additional Past Medical Histor: OBESITY, LUPUS Past Surgical History: Cholecystectomy, Additional Past Surgical Histo: D&C Smoking Status: Never Smoker Alcohol Use: None Drug Use: None General Adult EDM: Chief Complaint: COUGH HPI: HPI: Patient is a 35 year old [f__sex] who presents with [] Review of Systems: Review of Systems: Constitutional: Denies fever or chills. [] Eyes: Denies change in visual acuity. [] HENT: Denies nasal congestion or sore throat. [] Respiratory: Denies cough or shortness of breath. [] Cardiovascular: Denies chest pain or edema. [] GI: Denies abdominal pain, nausea, vomiting, bloody stools or diarrhea. [] : Denies dysuria. [] Musculoskeletal: Denies back pain or joint pain. [] Integument: Denies rash. [] Neurologic: Denies headache, focal weakness or sensory changes. [] Endocrine: Denies polyuria or polydipsia. [] Lymphatic: Denies swollen glands. [] Psychiatric: Denies depression or anxiety. [] Heart Score: Risk Factors: Risk Factors: DM, Current or recent (<one month) smoker, HTN, HLP, family history of CAD, obesity. Risk Scores: Score 0 - 3: 2.5% MACE over next 6 weeks - Discharge Home Score 4 - 6: 20.3% MACE over next 6 weeks - Admit for Clinical Observation Score 7 - 10: 72.7% MACE over next 6 weeks - Early Invasive Strategies Current Medications: Current Medications Medications (Trade) Dose Ordered Sig/Prem Start Time Stop Time Status Last Admin Dose Admin Albuterol/ Ipratropium (Duoneb) 3 ml 1X ONCE 07/12/20 09:15 07/12/20 09:23 DC 07/12/20 10:02 3 ML Dexamethasone (Decadron) 10 mg 1X ONCE 07/12/20 09:15 07/12/20 09:23 DC 07/12/20 09:41 10 MG Allergies: Allergies: Allergies Coded Allergies Type Severity Reaction Last Updated Verified onion Allergy Intermediate Hives 07/25/17 Yes strawberry Allergy Intermediate SWELLS UP 08/25/15 Yes Physical Exam: PE: Constitutional: Well developed, well nourished, no acute distress, non-toxic appearance. [] HENT: Normocephalic, atraumatic, bilateral external ears normal, oropharynx moist, no oral exudates, nose normal. [] Eyes: PERRLA, EOMI, conjunctiva normal, no discharge. [] Neck: Normal range of motion, no tenderness, supple, no stridor. [] Cardiovascular:Heart rate regular rhythm, no murmur [] Lungs & Thorax: Bilateral breath sounds clear to auscultation [] Abdomen: Bowel sounds normal, soft, no tenderness, no masses, no pulsatile masses. [] Skin: Warm, dry, no erythema, no rash. [] Back: No tenderness, no CVA tenderness. [] Extremities: No tenderness, no cyanosis, no clubbing, ROM intact, no edema. [] Neurologic: Alert and oriented X 3, normal motor function, normal sensory function, no focal deficits noted. [] Psychologic: Affect normal, judgement normal, mood normal. [] Current Patient Data: Vital Signs: Vital Signs Date Time Temp Pulse Resp B/P (MAP) Pulse Ox O2 Delivery O2 Flow Rate FiO2 07/12/20 10:02 Room Air 07/12/20 09:05 97.8 91 20 154/75 (101) 98 97.8 EKG: EKG: [] Radiology/Procedures: Radiology/Procedures: [] Course & Med Decision Making: Course & Med Decision Making Pertinent Labs and Imaging studies reviewed. (See chart for details) [] Dragon Disclaimer: Dragon Disclaimer: This electronic medical record was generated, in whole or in part, using a voice recognition dictation system. Departure Departure Impression: Primary Impression: Asthma exacerbation Qualified Codes: J45.41 - Moderate persistent asthma with (acute) exacerbation Disposition: HOME, SELF-CARE Condition: STABLE Referrals: UNKNOWN PCP NAME (PCP) SERENA KENDALL MD Patient Instructions: Asthma, Adult, [id number] Scripts Albuterol Sulfate (PROAIR HFA INHALER) 8.5 Gm Hfa.aer.ad 2 PUFF IH PRN Q4-6HRS PRN for wheezing, #1 INHALER 0 Refills Prov: DAYA SHAH DO 07/12/20 Justicifation of Admission Dx: Justifications for Admission: Justification of Admission Dx: N/A DAYA SHAH DO Jul 12, 2020 10:48
== END 2020-07-12 11:14 | disposition home or self-care (01) ==
LOC: ER 07:37
DX: J45.41 Moderate persistent asthma with (acute) exacerbation (principal); E11.9 Type 2 diabetes mellitus without complications; E66.9 Obesity, unspecified; Z68.41 Body mass index [BMI] 40.0-44.9, adult; Z91.018 Allergy to other foods
CPT/HCPCS: 71045; 94640; 99283

== ENCOUNTER 2020-08-16 13:38 | Emergency (ER) | payer SELFPAY ==
[~2020-08-16] VITALS: Ht 165.1 cm; Wt 115.6 kg
[2020-08-16] MEDS ORDERED: HEPARIN PF 500 UNIT/5 ML DISP.SYRIN. IVP ONE ×2 (14:30)
[2020-08-16 14:53] VITALS: BP 152/86
[2020-08-16] MEDS ORDERED: FLUORESCEIN OPHTH TEST STRIP. OD ONE (15:15)
[2020-08-16] MEDS ORDERED: TETRACAINE 0.5% OPHTH SOLUTION 4ML BOTTLE. OD ONE (15:15)
[2020-08-16] MEDS ORDERED: GENT5DRO3 OD (15:37)
--- NOTE | 2020-08-16 15:37 | PHYS DOC ---
Past Medical History Past Medical History: Asthma, Bronchitis, Diabetes-Type II, Other Additional Past Medical Histor: OBESITY, LUPUS Past Surgical History: Cholecystectomy, Additional Past Surgical Histo: D&C Smoking Status: Never Smoker Alcohol Use: None Drug Use: None General Adult EDM: Chief Complaint: EYE PROBLEMS HPI: HPI: Patient is a 35 year old female who presented to ER with 3-days history of right eye irritation. Patient said whenever she woke up in the morning her right eye was matted shut. Patient denies any blurred vision, no fever. Patient denies any headache. Review of Systems: Review of Systems: Constitutional: Denies fever or chills. [] Eyes: Denies change in visual acuity. Positive for right eye irritation. HENT: Denies nasal congestion or sore throat. [] Respiratory: Denies cough or shortness of breath. [] Cardiovascular: Denies chest pain or edema. [] GI: Denies abdominal pain, nausea, vomiting, bloody stools or diarrhea. [] : Denies dysuria. [] Musculoskeletal: Denies back pain or joint pain. [] Integument: Denies rash. [] Neurologic: Denies headache, focal weakness or sensory changes. [] Endocrine: Denies polyuria or polydipsia. [] Lymphatic: Denies swollen glands. [] Psychiatric: Denies depression or anxiety. [] Heart Score: Risk Factors: Risk Factors: DM, Current or recent (<one month) smoker, HTN, HLP, family history of CAD, obesity. Risk Scores: Score 0 - 3: 2.5% MACE over next 6 weeks - Discharge Home Score 4 - 6: 20.3% MACE over next 6 weeks - Admit for Clinical Observation Score 7 - 10: 72.7% MACE over next 6 weeks - Early Invasive Strategies Current Medications: Current Medications Medications (Trade) Dose Ordered Sig/Prem Start Time Stop Time Status Last Admin Dose Admin Fluorescein Sodium (Ful-Charis) 1 strip 1X ONCE 08/16/20 15:15 08/16/20 15:16 DC 08/16/20 15:20 1 STRIP Heparin Sodium (Porcine) (Hep Lock Adult) 500 unit 1X ONCE 08/16/20 14:30 08/16/20 14:31 Cancel Tetracaine HCl (Tetracaine) 2 drop 1X ONCE 08/16/20 15:15 08/16/20 15:16 DC 08/16/20 15:19 2 DROP Allergies: Allergies: Allergies Coded Allergies Type Severity Reaction Last Updated Verified onion Allergy Intermediate Hives 07/25/17 Yes strawberry Allergy Intermediate SWELLS UP 08/25/15 Yes Physical Exam: PE: Constitutional: Well developed, well nourished, no acute distress, non-toxic appearance. [] HENT: Normocephalic, atraumatic, bilateral external ears normal, oropharynx moist, no oral exudates, nose normal. [] Eyes: PERRLA, EOMI, right conjunctiva with injection, no exudation, no foreign body underneath eyelids, no cornea abrasion, no cornea ulcer, no discharge. [] Neck: Normal range of motion, no tenderness, supple, no stridor. [] Cardiovascular:Heart rate regular rhythm, no murmur [] Lungs & Thorax: Bilateral breath sounds clear to auscultation [] Abdomen: Bowel sounds normal, soft, no tenderness, no masses, no pulsatile masses. [] Skin: Warm, dry, no erythema, no rash. [] Back: No tenderness, no CVA tenderness. [] Extremities: No tenderness, no cyanosis, no clubbing, ROM intact, no edema. [] Neurologic: Alert and oriented X 3, normal motor function, normal sensory function, no focal deficits noted. [] Psychologic: Affect normal, judgement normal, mood normal. [] Current Patient Data: Vital Signs: Vital Signs Date Time Temp Pulse Resp B/P (MAP) Pulse Ox O2 Delivery O2 Flow Rate FiO2 08/16/20 14:53 98.3 74 20 152/86 (108) 100 Room Air 98.3 EKG: EKG: [] Radiology/Procedures: Radiology/Procedures: [] Course & Med Decision Making: Course & Med Decision Making Pertinent Labs and Imaging studies reviewed. (See chart for details) [] Dragon Disclaimer: Dragon Disclaimer: This electronic medical record was generated, in whole or in part, using a voice recognition dictation system. Departure Departure Impression: Primary Impression: Conjunctivitis, right eye Disposition: HOME, SELF-CARE Condition: STABLE Referrals: NO PCP (PCP) follow up with your doctor as needed Patient Instructions: Bacterial Conjunctivitis Scripts Gentamicin Sulfate (GENTAMICIN SULFATE 0.3% OPHTH SOLN) 5 Ml Drops 2 DROP OD QID for 5 Days, #5 ML 0 Refills Prov: ARIK BEARD DO 08/16/20 ARIK BEARD DO Aug 16, 2020 15:37
== END 2020-08-16 16:16 | disposition home or self-care (01) ==
LOC: ER 13:38
DX: H10.89 Other conjunctivitis (principal); J45.909 Unspecified asthma, uncomplicated; E11.9 Type 2 diabetes mellitus without complications; E66.9 Obesity, unspecified; Z68.41 Body mass index [BMI] 40.0-44.9, adult; Z90.49 Acquired absence of other specified parts of digestive tract; Z98.890 Other specified postprocedural states; Z91.018 Allergy to other foods
CPT/HCPCS: 99283

== ENCOUNTER 2020-08-21 16:10 | Emergency (ER) | payer SELFPAY ==
[~2020-08-21] VITALS: Ht 165.1 cm; Wt 113.0 kg
[~2020-08-21 16:10] MED LIST changes: -CIPR2.5D EACH EAR; +CIPR2.5D2 EACH EAR; +GENT5DRO3 OD
[2020-08-21] MEDS ORDERED: MORPHINE SULFATE 4 MG/ML VIAL. IV ONE (17:00)
[2020-08-21] MEDS ORDERED: ACETAMINOPHEN 500 MG TABLET PO ONE (17:00)
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
[2020-08-21] MEDS ORDERED: IOHEXOL 300 MG/ML 100ML VIAL. IV ONE (17:45)
[2020-08-21 17:51] LABS: CALCIUM 8.5 mg/dL (8.5-10.1); CREATININE 0.8 mg/dL (0.6-1.0); GFR 99.4; POTASSIUM 3.4 mmol/L (3.5-5.1)
[2020-08-21] MEDS ORDERED: CONTRAST GIVEN. MC PRN (18:00)
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
[2020-08-21 19:00] VITALS: BP 148/77
[2020-08-21] MEDS ORDERED: ACET1TAB33 PO (19:06)
[2020-08-21] MEDS ORDERED: NEOMY/BACITR/POLYMYXIN OINT PACKET. TP ONE (19:15)
== END 2020-08-21 20:38 | disposition home or self-care (01) ==
LOC: ER 16:10
DX: S20.211A Contusion of right front wall of thorax, initial encounter (principal); S61.306A Unspecified open wound of right little finger with damage to nail, initial encounter; R10.9 Unspecified abdominal pain; M25.532 Pain in left wrist; J45.909 Unspecified asthma, uncomplicated; E11.9 Type 2 diabetes mellitus without complications; E66.8 Other obesity; Z68.42 Body mass index [BMI] 45.0-49.9, adult; Z90.49 Acquired absence of other specified parts of digestive tract; Z91.018 Allergy to other foods; Z98.890 Other specified postprocedural states; Y08.89XA Assault by other specified means, initial encounter; Y93.89 Activity, other specified; Y92.89 Other specified places as the place of occurrence of the external cause; Y99.8 Other external cause status
CPT/HCPCS: 29125; 36415; 71045; 71250; 73110; 73130; 74176; 80048; 96374; 99285; J2270

== ENCOUNTER 2020-10-20 10:36 | Emergency (ER) | payer SELFPAY ==
[~2020-10-20] VITALS: Ht 165.1 cm; Wt 120.0 kg
[~2020-10-20 10:36] MED LIST changes: +ACET1TAB33 PO
[2020-10-20 10:57] VITALS: BP 172/76
--- NOTE | 2020-10-20 11:04 | PHYS DOC ---
Past Medical History Past Medical History: Asthma, Bronchitis, Diabetes-Type II, Other Additional Past Medical Histor: OBESITY, LUPUS Past Surgical History: Cholecystectomy, Additional Past Surgical Histo: D&C Smoking Status: Never Smoker Alcohol Use: None Drug Use: None General Adult EDM: Chief Complaint: EARACHE/EAR PAIN HPI: HPI: Patient is a 35 year old female present to ER for evaluation of right ear pain since 2 days ago. Denies any loss of hearing. Denies any cough or fever, no neck pain, no headache. Review of Systems: Review of Systems: Constitutional: Denies fever or chills. [] Eyes: Denies change in visual acuity. [] HENT: Denies nasal congestion or sore throat. [] Positive for right ear pain Respiratory: Denies cough or shortness of breath. [] Cardiovascular: Denies chest pain or edema. [] GI: Denies abdominal pain, nausea, vomiting, bloody stools or diarrhea. [] : Denies dysuria. [] Musculoskeletal: Denies back pain or joint pain. [] Integument: Denies rash. [] Neurologic: Denies headache, focal weakness or sensory changes. [] Endocrine: Denies polyuria or polydipsia. [] Lymphatic: Denies swollen glands. [] Psychiatric: Denies depression or anxiety. [] Heart Score: Risk Factors: Risk Factors: DM, Current or recent (<one month) smoker, HTN, HLP, family history of CAD, obesity. Risk Scores: Score 0 - 3: 2.5% MACE over next 6 weeks - Discharge Home Score 4 - 6: 20.3% MACE over next 6 weeks - Admit for Clinical Observation Score 7 - 10: 72.7% MACE over next 6 weeks - Early Invasive Strategies Allergies: Allergies: Allergies Coded Allergies Type Severity Reaction Last Updated Verified onion Allergy Intermediate Hives 07/25/17 Yes strawberry Allergy Intermediate SWELLS UP 08/25/15 Yes Physical Exam: PE: Constitutional: Well developed, well nourished, no acute distress, non-toxic appearance. [] HENT: Normocephalic, atraumatic, bilateral external ears normal, oropharynx moist, no oral exudates, nose normal. RIGHT TM IS ERYTHEMA, BULGING, NO MASTOID BONE TENDERNESS TO PALPATION, NO TRISMUS Eyes: PERRLA, EOMI, conjunctiva normal, no discharge. [] Neck: Normal range of motion, no tenderness, supple, no stridor. [] Cardiovascular:Heart rate regular rhythm, no murmur [] Lungs & Thorax: Bilateral breath sounds clear to auscultation [] Abdomen: Bowel sounds normal, soft, no tenderness, no masses, no pulsatile masses. [] Skin: Warm, dry, no erythema, no rash. [] Back: No tenderness, no CVA tenderness. [] Extremities: No tenderness, no cyanosis, no clubbing, ROM intact, no edema. [] Neurologic: Alert and oriented X 3, normal motor function, normal sensory function, no focal deficits noted. [] Psychologic: Affect normal, judgement normal, mood normal. [] Current Patient Data: Vital Signs: Vital Signs Date Time Temp Pulse Resp B/P (MAP) Pulse Ox O2 Delivery O2 Flow Rate FiO2 10/20/20 10:41 98.3 100 18 178/110 (132) 98 Room Air 98.3 EKG: EKG: [] Radiology/Procedures: Radiology/Procedures: [] Course & Med Decision Making: Course & Med Decision Making Pertinent Labs and Imaging studies reviewed. (See chart for details) [] Dragon Disclaimer: [employer] Disclaimer: This electronic medical record was generated, in whole or in part, using a voice recognition dictation system. Departure Departure Impression: Primary Impression: Otitis media, right Disposition: 01 DC HOME SELF CARE/HOMELESS Condition: STABLE Referrals: UNKNOWN PCP NAME (PCP) Patient Instructions: Otitis Media, Adult Additional Instructions: Thank you for visiting our Emergency Department. We appreciate you trusting us with your care. If any additional problems come up don't hesitate to return to visit us. Please follow up with your primary care provider so they can plan additional care if needed and know about the problem that you had. If symptoms worsen come back to the Emergency Department. Any concerning symptoms that start such as chest pain, shortness of air, weakness or numbness on one side of the body, running high fevers or any other concerning symptoms return to the ER. Scripts Amoxicillin/Potassium Clav (AUGMENTIN 875-125 TABLET) 1 Each Tablet 1 TAB PO BID for 10 Days, #20 TAB 0 Refills Prov: ARIK BEARD DO 10/20/20 ARIK BEARD DO Oct 20, 2020 11:04
[2020-10-20] MEDS ORDERED: AMOX1TAB61 PO (11:06)
== END 2020-10-20 11:15 | disposition home or self-care (01) ==
LOC: ER 10:36
DX: H66.91 Otitis media, unspecified, right ear (principal); E11.9 Type 2 diabetes mellitus without complications; J45.909 Unspecified asthma, uncomplicated; Z91.018 Allergy to other foods; E66.9 Obesity, unspecified; Z68.41 Body mass index [BMI] 40.0-44.9, adult
CPT/HCPCS: 99283

== ENCOUNTER 2021-04-28 12:12 | Emergency (ER) | payer MEDICARE, OTHER ==
[~2021-04-28] VITALS: Ht 165.1 cm; Wt 110.9 kg
[~2021-04-28 12:12] MED LIST changes: -FLUT100D IH; +FLUT100D2 IH; -FLUT250D IH; +FLUT250D2 IH; -LISI-338 PO; +LISI-517 PO
[2021-04-28 12:15] VITALS: BP 185/101
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
[2021-04-28 12:38] LABS: BILIRUBIN,URINE NEGATIVE (NEG); CLARITY,URINE CLEAR; COLOR,URINE YELLOW; NITRITE,URINE NEGATIVE (NEG); PROTEIN,URINE NEGATIVE (NEG-TRACE); UROBILINOGEN,URINE 0.2 mg/dL (0.2 mg/dL)
[2021-04-28 12:46] LABS: BACTERIA,URINE 0 /HPF (0-FEW)
[2021-04-29 18:09] LABS: GC PROBE Negative (Negative)
== END 2021-04-28 13:40 | disposition home or self-care (01) ==
LOC: ER 12:12
DX: N89.8 Other specified noninflammatory disorders of vagina (principal); E11.9 Type 2 diabetes mellitus without complications; J45.909 Unspecified asthma, uncomplicated; E66.9 Obesity, unspecified; Z68.41 Body mass index [BMI] 40.0-44.9, adult; Z90.49 Acquired absence of other specified parts of digestive tract; Z98.890 Other specified postprocedural states; Z91.018 Allergy to other foods; Z20.2 Contact with and (suspected) exposure to infections with a predominantly sexual mode of transmission
CPT/HCPCS: 81001; 81025; 87491; 87591; 99284; Q0111

== ENCOUNTER 2021-05-25 22:36 | Emergency (ER) | payer MEDICARE ==
[~2021-05-25] VITALS: Ht 165.1 cm; Wt 111.0 kg
[~2021-05-25 22:36] MED LIST changes: +FLUT250D IH; -FLUT250D2 IH
[2021-05-25 22:45] VITALS: BP 172/100
[2021-05-25] MEDS ORDERED: AMOX500T PO (23:20)
--- NOTE | 2021-05-25 23:20 | PHYS DOC ---
Past Medical History Past Medical History: Anxiety, Asthma, Bronchitis, Diabetes-Type II, Other Additional Past Medical Histor: OBESITY, LUPUS Past Surgical History: Cholecystectomy, Additional Past Surgical Histo: D&C Smoking Status: Never Smoker Alcohol Use: None Drug Use: None General Adult EDM: Chief Complaint: EARACHE/EAR PAIN HPI: HPI: Patient is a 36 year old male presents with 2-day history of left ear pain. Patient states pain is progressively coming worse since onset. Also noticed some swelling and an earring site just anterior to the tragus. Patient denies any fevers or chills. Review of Systems: Review of Systems: Constitutional: Denies fever or chills. [] Eyes: Denies change in visual acuity. [] HENT: Denies nasal congestion or sore throat. [] Positive ear pain Respiratory: Denies cough or shortness of breath. [] Cardiovascular: Denies chest pain or edema. [] GI: Denies abdominal pain, nausea, vomiting, bloody stools or diarrhea. [] : Denies dysuria. [] Musculoskeletal: Denies back pain or joint pain. [] Integument: Denies rash. [] Neurologic: Denies headache, focal weakness or sensory changes. [] Endocrine: Denies polyuria or polydipsia. [] Lymphatic: Denies swollen glands. [] Psychiatric: Denies depression or anxiety. [] Heart Score: C/O Chest Pain: N/A Risk Factors: Risk Factors: DM, Current or recent (<one month) smoker, HTN, HLP, family history of CAD, obesity. Risk Scores: Score 0 - 3: 2.5% MACE over next 6 weeks - Discharge Home Score 4 - 6: 20.3% MACE over next 6 weeks - Admit for Clinical Observation Score 7 - 10: 72.7% MACE over next 6 weeks - Early Invasive Strategies Allergies: Allergies: Allergies Coded Allergies Type Severity Reaction Last Updated Verified onion Allergy Intermediate Hives 07/25/17 Yes strawberry Allergy Intermediate SWELLS UP 08/25/15 Yes Physical Exam: PE: General: alert, no acute distress. Skin: warm, dry and intact. HENT: bilateral external ears normal, oropharynx moist, nose normal. TM erythema on the left Head:: Normocephalic, atraumatic. Neck: Trachea midline. Eyes: EOMI, Normal conjunctiva, No drainage CARDIOVASCULAR: Regular rate and rhythm RESPIRATORY: No respiratory distress Back: Full range of motion. Skin: Warm, dry, no erythema, no rash. MUSCULOSKELETAL: Full range of motion of bilateral upper and lower extremities. GASTROINTESTINAL: Abdomen soft without rebound or guarding. NEUROLOGICAL: Alert and noted to person, place and time. No neurological deficits observed Psychiatric: Cooperative. Normal judgment EKG: EKG: [] Radiology/Procedures: Radiology/Procedures: [] Course & Med Decision Making: Course & Med Decision Making Pertinent Labs and Imaging studies reviewed. (See chart for details) [] Dragon Disclaimer: Dragon Disclaimer: This electronic medical record was generated, in whole or in part, using a voice recognition dictation system. Departure Departure Impression: Primary Impression: Otitis media Disposition: HOME / SELF CARE / HOMELESS Condition: STABLE Referrals: NO PCP (PCP) Patient Instructions: Otitis Media, Adult Scripts Amoxicillin (AMOXICILLIN) 500 Mg Tablet 1 TAB PO BID, #20 TAB Prov: ARIN NATHAN DO 05/25/21 ARIN NATHAN DO May 25, 2021 23:20
[2021-05-25] MEDS ORDERED: AMOXICILLIN 250 MG CAPSULE. ONE (23:30)
[2021-05-25] MEDS ORDERED: AMOXICILLIN 250 MG CAPSULE. PO ONE (23:45)
== END 2021-05-25 23:32 | disposition home or self-care (01) ==
LOC: ER 22:36
DX: H66.92 Otitis media, unspecified, left ear (principal); E11.9 Type 2 diabetes mellitus without complications; J45.909 Unspecified asthma, uncomplicated; Z91.018 Allergy to other foods
CPT/HCPCS: 99283

== ENCOUNTER 2021-06-07 12:45 | Emergency (ER) | payer MEDICARE ==
[~2021-06-07] VITALS: Ht 165.1 cm; Wt 90.9 kg
[~2021-06-07 12:45] MED LIST changes: +AMOX500T PO
[2021-06-07 14:58] VITALS: BP 178/84
--- NOTE | 2021-06-07 15:36 | RAD ---
AP, lateral, and oblique views of the left foot were obtained. History: Reason: LEFT FOOT/GREAT TOE INJURY,ATTN LEFT GREAT TOE / Spl. Instructions: / History: Comparison: none. There is no fracture, subluxation or dislocation. No significant degenerative changes, or significant soft tissue swelling seen. The bones of the midfoot are well aligned. The first toe toenail appears to be raised off of the expected location on the toenail bed. Electronically signed by: Lake Morrison MD (06/07/2021 3:34 PM) [facility]
[2021-06-07] MEDS ORDERED: DIPH,PERTUSS(ACELL),TET VAC/PF 0.5 ML SYRINGE. VAX IM ONE (16:15)
[2021-06-07] MEDS ORDERED: BUPIVACAINE MPF 0.5% 30 ML VIAL. INJ ONE (17:00)
[2021-06-07] MEDS ORDERED: MUPI22OI2 TP (17:33)
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
== END 2021-06-07 17:52 | disposition home or self-care (01) ==
LOC: ER 12:45
DX: S91.202A Unspecified open wound of left great toe with damage to nail, initial encounter (principal); J45.909 Unspecified asthma, uncomplicated; E11.9 Type 2 diabetes mellitus without complications; Z91.018 Allergy to other foods; W22.03XA Walked into furniture, initial encounter; Y93.89 Activity, other specified; Y92.89 Other specified places as the place of occurrence of the external cause; Y99.8 Other external cause status
CPT/HCPCS: 11730; 73630; 90471; 90715; 99284; J3490; 11750; 99285

== ENCOUNTER 2021-07-17 23:43 | Emergency (ER) | payer MEDICARE ==
[~2021-07-17] VITALS: Ht 165.1 cm; Wt 109.0 kg
[~2021-07-17 23:43] MED LIST changes: -FLUT250D IH; +FLUT250D2 IH; +MUPI22OI2 TP
[2021-07-18 00:13] VITALS: BP 171/113
[2021-07-18] MEDS ORDERED: IBUPROFEN 200 MG TABLET. PO ONE (00:15)
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
--- NOTE | 2021-07-18 07:21 | RAD ---
XR LT WRIST 3VIEWS, XR HAND_LEFT 3 VIEWS DATE: 07/18/2021 12:23 AM INDICATION: Reason: pain s/p blunt trauma / Spl. Instructions: / History: COMPARISON: None. FINDINGS: Bones: There is no evidence of acute fracture or dislocation. Joints: The joint spaces are normal. Miscellaneous: None. IMPRESSION: No evidence of acute fracture. Electronically signed by: Ethan Mora MD (07/18/2021 7:19 AM) [id number]
== END 2021-07-18 00:52 | disposition home or self-care (01) ==
LOC: ER 23:43
DX: S63.502A Unspecified sprain of left wrist, initial encounter (principal); J45.909 Unspecified asthma, uncomplicated; E10.9 Type 1 diabetes mellitus without complications; Y08.09XA Assault by strike by other specified type of sport equipment, initial encounter; Y93.89 Activity, other specified; Y92.89 Other specified places as the place of occurrence of the external cause; Y99.8 Other external cause status
CPT/HCPCS: 29125; 73120; 73130; 99284

== ENCOUNTER → 2021-11-07 | Emergency (ER) | payer OTHER, MEDICARE ==
[~2021-11-07] VITALS: Ht 165.1 cm; Wt 260.0 kg
[~2021-11-07] MED LIST changes: +ACETAMINOPHEN/CODEINE 300/30MG TABLET. PO ONE; +CYCL10TA19 PO; -CYCL10TA2 PO; -LISI-517 PO; +LISI5TAB15 PO
[2021-11-08 00:19] VITALS: BP 178/89
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
--- NOTE | 2021-11-08 01:49 | RAD ---
Left foot x-rays 3 views HISTORY: Left foot trauma and pain. FINDINGS: No fracture. No dislocation. Mild spurring at the first MTP joint. Soft tissues unremarkabl e. Small spur of the plantar calcaneus. IMPRESSION: No acute osseous injury of the foot. Electronically signed by: Gordo Ocampo MD (11/08/2021 1:47 AM) [facility]
== END | disposition home or self-care (01) ==
LOC: ER 16:42
DX: S90.32XA Contusion of left foot, initial encounter (principal); J45.909 Unspecified asthma, uncomplicated; E10.9 Type 1 diabetes mellitus without complications; Z91.018 Allergy to other foods; W50.0XXA Accidental hit or strike by another person, initial encounter; Y93.89 Activity, other specified; Y92.89 Other specified places as the place of occurrence of the external cause; Y99.8 Other external cause status
CPT/HCPCS: 73630; 99283

== ENCOUNTER 2022-03-24 09:53 | Emergency (ER) | payer OTHER, MEDICARE ==
[~2022-03-24] VITALS: Ht 165.1 cm; Wt 111.6 kg
[~2022-03-24 09:53] MED LIST changes: -ACET1TAB33 PO; +ACET1TAB56 PO; -ACETAMINOPHEN/CODEINE 300/30MG TABLET. PO ONE
[2022-03-24] MEDS ORDERED: HYDROcodone/APAP 5/325MG 1 TAB TABLET PO ONE (10:30)
[2022-03-24] MEDS ORDERED: AMOX500C PO (10:42)
[2022-03-24] MEDS ORDERED: CETI10TA74 PO (10:42)
[2022-03-24] MEDS ORDERED: METH4TAB2 PO (10:42)
--- NOTE | 2022-03-24 10:42 | PHYS DOC ---
Past Medical History Past Medical History: Anxiety, Asthma, Bronchitis, Diabetes-Type I, Other Additional Past Medical Histor: lupus Past Surgical History: No Surgical History Additional Past Surgical Histo: D&C Smoking Status: Never Smoker Alcohol Use: None Drug Use: None General Adult EDM: Chief Complaint: SORE THROAT HPI: HPI: Patient is a 37 year old female who presents with nasal congestion, ear pain, sore throat for the last 3 days. She is only been taking Advil for pain. Last took Advil at 9:00 this morning. Denies fever, body aches, cough, shortness of breath, chest pain, change in hearing, headache or dizziness. She has a history of diabetes, lupus, asthma, anxiety and D&C. She rates her aching ear pain at a 10 out of 10. Review of Systems: Review of Systems: Constitutional: Denies fever or chills. [] Eyes: Denies change in visual acuity. [] HENT: +nasal congestion or +sore throat. +ear pain[] Respiratory: Denies cough or shortness of breath. [] Cardiovascular: Denies chest pain or edema. [] GI: Denies abdominal pain, nausea, vomiting, bloody stools or diarrhea. [] : Denies dysuria. [] Musculoskeletal: Denies back pain or joint pain. [] Integument: Denies rash. [] Neurologic: Denies headache, focal weakness or sensory changes. [] Endocrine: Denies polyuria or polydipsia. [] Lymphatic: Denies swollen glands. [] Psychiatric: Denies depression or anxiety. [] Heart Score: C/O Chest Pain: No Allergies: Allergies: Allergies Coded Allergies Type Severity Reaction Last Updated Verified onion Allergy Intermediate Hives 07/25/17 Yes strawberry Allergy Intermediate SWELLS UP 08/25/15 Yes Physical Exam: PE: Constitutional: Well developed, well nourished, no acute distress, non-toxic appearance. [] HENT: Normocephalic, atraumatic, bilateral external ears normal, oropharynx moist, no oral exudates, nose normal. Bilateral tympanic reddened but intact. No mastoid tenderness. Postnasal drip. [] Eyes: PERRLA, EOMI, conjunctiva normal, no discharge. [] Neck: Normal range of motion, no tenderness, supple, no stridor. [] Cardiovascular:Heart rate regular rhythm, no murmur [] Lungs & Thorax: Bilateral breath sounds clear to auscultation [] Abdomen: Bowel sounds normal, soft, no tenderness, no masses, no pulsatile masses. [] Skin: Warm, dry, no erythema, no rash. [] Back: No tenderness, no CVA tenderness. [] Extremities: No tenderness, no cyanosis, no clubbing, ROM intact, no edema. [] Neurologic: Alert and oriented X 3, normal motor function, normal sensory function, no focal deficits noted. [] Psychologic: Affect normal, judgement normal, mood normal. [] Current Patient Data: Vital Signs: Vital Signs Date Time Temp Pulse Resp B/P (MAP) Pulse Ox O2 Delivery O2 Flow Rate FiO2 03/24/22 10:16 98.3 75 20 200/115 (143) 99 Room Air 98.3 EKG: EKG: [] Radiology/Procedures: Radiology/Procedures: [] Course & Med Decision Making: Course & Med Decision Making Pertinent Labs and Imaging studies reviewed. (See chart for details) See HPI. Alert and oriented x4. Very tearful. Ambulatory with a steady gait. Skin pink warm and dry. Bilateral tympanic's are reddened without mastoid tenderness. Tympanic's are intact. Vital signs within normal limits. Throat is pink without exudates or swelling. Uvula midline. No trismus. Lungs are clear to auscultation all lobes. [] Dragon Disclaimer: Dragon Disclaimer: This electronic medical record was generated, in whole or in part, using a voice recognition dictation system. Departure Departure Impression: Primary Impression: Otitis media Qualified Codes: H66.93 - Otitis media, unspecified, bilateral Additional Impression: Upper respiratory infection Qualified Codes: J06.9 - Acute upper respiratory infection, unspecified Disposition: HOME / SELF CARE / HOMELESS Condition: STABLE Referrals: NO PCP (PCP) Patient Instructions: Otitis Media, Adult, Upper Respiratory Infection, Adult Additional Instructions: Follow-up with primary care provider this coming week. Take antibiotic and all medications as prescribed. Make sure you take antibiotics with food. Drink plenty of fluids to stay hydrated. If any of your symptoms worsen return emergency room. Scripts Cetirizine Hcl (ZYRTEC) 10 Mg Tablet 1 TAB PO DAILY, #30 TAB Prov: EDSON MCCLELLAN APRN 03/24/22 Methylprednisolone (MEDROL) 4 Mg Tab.ds.pk 1 PKG PO UD, #1 PKG Prov: EDSON MCCLELLAN APRN 03/24/22 Amoxicillin (AMOXICILLIN) 500 Mg Capsule 1 CAP PO BID, #20 CAP Prov: EDSON MCCLELLAN APRN 03/24/22 EDSON MCCLELLAN APRN March 24, 2022 10:42
[2022-03-24 11:09] VITALS: BP 197/100
== END 2022-03-24 11:10 | disposition home or self-care (01) ==
LOC: ER 09:53
DX: J06.9 Acute upper respiratory infection, unspecified (principal); H66.93 Otitis media, unspecified, bilateral; J45.909 Unspecified asthma, uncomplicated; E11.9 Type 2 diabetes mellitus without complications; Z91.018 Allergy to other foods
CPT/HCPCS: 87070; 87880; 99283